=== PATIENT | female | born 1980 | race Caucasian/White ===

== ENCOUNTER 2020-03-21 20:04 | Inpatient (IN) | payer BC ==
[~2020-03-21] VITALS: Ht 180.3 cm; Wt 97.6 kg
[2020-03-21] MEDS ORDERED: IV NORMAL SALINE 1000ML BAG 1,000 ML IV SCH (20:40)
[2020-03-21] MEDS ORDERED: methylPREDNISolone SOD SUCC PF 125 MG/2 ML VIAL. IV ONE (20:45)
[2020-03-21] MEDS ORDERED: fentaNYL PF VIAL 100 MCG/2 ML VIAL IVP ONE (20:45)
[2020-03-21] MEDS ORDERED: ONDANSETRON PF 4 MG/2 ML VIAL. IVP ONE (20:45)
[2020-03-21 21:16] LABS: BASO # 0.1 x10^3/uL (0.0-0.2); BASO % 1 % (0-3); EOS % 1 % (0-3); HEMOGLOBIN 11.8 g/dL (12.0-15.5); LYMPH # 1.9 x10^3/uL (1.0-4.8); LYMPH % 29 % (24-48); MEAN CORPUSCULAR HEMOGLOBIN 26 pg (25-35); MEAN CORPUSCULAR HGB CONC 33 g/dL (31-37); MEAN CORPUSCULAR VOLUME 80 fL (79-100); MONO # 0.6 x10^3/uL (0.0-1.1); MONO % 8 % (0-9); NEUT # 4.1 x10^3/uL (1.8-7.7); NEUT % 62 % (31-73); PLATELET COUNT 344 x10^3/uL (140-400); RED BLOOD COUNT 4.49 x10^6/uL (3.50-5.40); RED CELL DISTRIBUTION WIDTH 14.9 % (11.5-14.5); WHITE BLOOD COUNT 6.6 x10^3/uL (4.0-11.0)
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
[2020-03-21 21:24] LABS: CALCIUM 8.8 mg/dL (8.5-10.1); CREATININE 0.9 mg/dL (0.6-1.0); GFR 69.3; POTASSIUM 3.9 mmol/L (3.5-5.1)
[2020-03-21 21:26] LABS: AMPHETAMINE/METHAMPHETAMINE NEG (NEG); BARBITURATES NEG (NEG); BENZODIAZEPINES NEG (NEG); CANNABINOIDS NEG (NEG); COCAINE NEG (NEG); METHADONE NEG (NEG); OPIATES POS (NEG); PHENCYCLIDINE NEG (NEG)
[2020-03-21 21:29] LABS: ALBUMIN 3.8 g/dL (3.4-5.0); TOTAL BILIRUBIN 0.4 mg/dL (0.2-1.0); TOTAL PROTEIN 7.5 g/dL (6.4-8.2)
[2020-03-21 21:55] LABS: BILIRUBIN,URINE SMALL (NEG); CLARITY,URINE CLEAR; NITRITE,URINE NEGATIVE (NEG); PH,URINE 6.5 (<5.0-8.0); PROTEIN,URINE NEGATIVE (NEG-TRACE)
[2020-03-21 22:02] LABS: COLOR,URINE YELLOW; SQUAMOUS EPITHELIAL CELL,UR MOD /LPF
[2020-03-21 22:03] LABS: BACTERIA,URINE FEW /HPF (0-FEW); RBC,URINE 0 /HPF (0-2)
--- NOTE | 2020-03-22 00:29 | RAD ---
Study: MR cervical spine without contrast INDICATION: Neck injury. Bilateral radiculopathy. COMPARISON: None. TECHNIQUE: Multiplanar MR imaging of the cervical spine performed without the use of intravenous contrast. FINDINGS: Cord signal elevation beginning at the lower aspect of the C4 level and extending to the mid aspect of C5 in the setting of cord compression as detailed below. Apparent cord signal elevation on the sagittal STIR sequence at the C6 level but this is less conspicuous on the axial and sagittal T2 sequences and may be artifactual from adjacent surgical hardware. Operative changes at C5-C6. Hardware integrity and assessment for fusion across the operative level would be better assessed by radiography or CT. Straightening of cervical lordosis. Faint retrolisthesis of C4 on C5. No acute fracture or aggressive marrow signal abnormality. Discogenic arthrosis most pronounced at the junctional C4-C5 and C6-C7 levels. Mild prevertebral edema/fluid extending from C2 to C4. Mild T2 signal elevation along the tip of the dens but the small ligamentous structures in this region appear intact. Normal atlantodental interval and normal alignment at the craniocervical interface. No evidence for major ligamentous injury throughout the cervical or upper thoracic spine. Small right thyroid lobe nodule on image 19 series 8 measuring up to 0.8 cm. This does not warrant dedicated follow-up based on size. C1-C2: The region of the foramen magnum is patent. C2-C3: Mild facet degeneration. The central canal and neural foramina are patent. C3-C4: Mild disc osteophyte complex eccentric to the left. Left more so than right uncovertebral joint hypertrophy. Mild left facet degeneration. Ventral cord flattening lateralized to the left. Moderate central canal stenosis. Mild left neural foraminal stenosis. The right neural foramen is patent. C4-C5: Junctional level. Diffuse disc osteophyte complex and ligamentum flavum combine to compress the ventral and dorsal margins of the cord. Severe central canal stenosis measuring just under 5 mm AP. As above, cord signal elevation at this level. Facet degeneration more pronounced on the left. Left more so than right uncovertebral joint hypertrophy. Severe left and moderate right neural foraminal stenosis. C5-C6: Operative level. Osteophytic ridging with central cord deformity. There may be fusion across the facet joints at this level. Minimal central canal stenosis. The neural foramina are patent. C6-C7: Junctional level. Diffuse disc osteophyte complex slightly eccentric to the left. Mild ligamentum flavum hypertrophy. Ventral more so than dorsal cord deformity. Moderate central canal stenosis. Left more so than right uncovertebral joint hypertrophy and mild facet degeneration with moderate left and mild right neural foraminal stenosis. C7-T1: Bilateral facet generation slightly more pronounced on the right. The central canal is patent. Moderate right and mild left neural foraminal stenosis. T1-T2 through T3-T4: Mild facet degeneration without significant neural foraminal stenosis. The central canal is patent. IMPRESSION: 1. Mild prevertebral edema/fluid mainly from the lower aspect of C2-C4 could represent the sequela of reported trauma however there is no evidence for major ligamentous injury. No acute fracture. 2. Cord signal elevation from the mid aspect of C4 to the mid aspect of C5 either cord edema or myelomalacia in the setting of severe central canal stenosis at C4-C5. This severe central canal stenosis is on a multifactorial basis to include mild retrolisthesis of C4 on C5, diffuse disc osteophyte complex and ligamentum flavum hypertrophy. The mid sagittal canal dimension is approximately 4.8 mm. 3. Also at C4-C5, left more so than right facet degeneration and uncovertebral joint hypertrophy resulting in severe left and moderate right neural foraminal stenosis. 4. As above, moderate central canal stenosis at C3-C4 and C6-C7. Moderate neural foraminal stenosis on the left at C6-C7 and on the right at C7-T1. Mild neural foraminal stenosis at additional levels detailed in the body the report. 5. Operative changes at C5-C6 without comp occasions features by MRI. Note is made that hardware integrity and any osseous fusion would be better assessed by radiographs or CT. Electronically signed by: SUSAN ROSADO MD (03/22/2020 12:26 AM) [id number]
[2020-03-22] MEDS ORDERED: ONDANSETRON PF 4 MG/2 ML VIAL. IV PRN (00:30)
--- NOTE | 2020-03-22 02:05 | NUR ---
Report was given to this RN by VALORIE Poe. Pt. arrived on unit at approximately 0205 by wheelchair from ED. Pt. complains of pain at this time. Assessment and vitals were done. Call light within reach with bed in lowest position. Will continue to monitor.
[2020-03-22] MEDS: fentaNYL PF VIAL 100 MCG/2 ML VIAL IV PRN ×3 (02:12→04:18)
[2020-03-22] MEDS: IV NORMAL SALINE 1000ML BAG 1,000 ML IV SCH ×3 (02:19→22:13)
--- NOTE | 2020-03-22 02:41 | NUR ---
No appetite. Only eats once a day and drinks 2-3 glasses of wine. Addendum: 03/22/20 at 0251 by MANJIT SAUNDERS RN Amended: Links added.
[2020-03-22 03:00] VITALS: BP 139/78
[2020-03-22] MEDS ORDERED: MULT-245 PO (04:26)
[2020-03-22] MEDS: fentaNYL PF VIAL 100 MCG/2 ML VIAL IVP PRN ×3 (06:10→10:51)
[2020-03-22 07:50] VITALS: BP 128/81
--- NOTE | 2020-03-22 10:45 | NUR ---
SW following. Chart reviewed, discussed with RN. Pt is from home with . NPO, room air. Dr. Palma consulted. SW will continue to follow for any discharge planning needs.
[2020-03-22] MEDS ORDERED: methylPREDNISolone SOD SUCC PF 125 MG/2 ML VIAL. IV ONE (11:30)
[2020-03-22 11:32] VITALS: BP 141/82
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
[2020-03-22] MEDS: HYDROmorphone 2 MG/ML VIAL IV PRN ×3 (13:06→22:12)
--- NOTE | 2020-03-22 13:33 | PDOC ---
Provider Note Provider Note patient seen and examined consulted for cervical stenosis, s/p fall off bed Sunday c/o burning pain in forearms and hands bilaterally and neck pain history of cervical fusion 10 years ago exam- 4/5 strength in upper extremities primarily becasue of pain, LE strength was 5/5 burning dysesthetic pain in Upper extremities knee and ankle jerks were 3+, upper extremity reflexes were 1+ on cervical MRI there is an instrumented fusion C5-7, there is post disc bulging at C4-5 with severe stenosis cervical myelopathy with severe stenosis plan for ACDF C4-5 tomorrow steroids discussed risks and post op course with patient and mother per phone, all questions answered KRISTY SCHWARTZ MD Mar 22, 2020 13:33
[2020-03-22] MEDS: DEXAMETHASONE SOD PHOS 4 MG/ML VIAL IVP SCH ×2 (14:00→18:06)
[2020-03-22 15:05] VITALS: BP 138/78
[2020-03-22 19:00] VITALS: BP 122/69
[2020-03-22 23:00] VITALS: BP 117/75
[2020-03-23] VITALS (12 sets, daily range): BP systolic 113–150; BP diastolic 56–82
[2020-03-23] MEDS: DEXAMETHASONE SOD PHOS 4 MG/ML VIAL IVP SCH ×4 (00:11→18:08)
[2020-03-23] MEDS: HYDROmorphone 2 MG/ML VIAL IV PRN ×2 (02:15→06:20)
[2020-03-23] MEDS: ONDANSETRON PF 4 MG/2 ML VIAL. IVP PRN (04:03)
[2020-03-23] MEDS ORDERED: BACITRACIN 50,000 UNIT in IV NORMAL SALINE 1000ML BAG 1,000 ML IRR ONE (06:00)
[2020-03-23] MEDS ORDERED: GELATIN SPONGE SIZE 100. ONE (06:57)
[2020-03-23] MEDS ORDERED: THROMBIN TOPICAL 20,000 UNIT SPRAY.SYRN KIT TP ONE (06:58)
[2020-03-23] MEDS ORDERED: BUPIVACAINE-EPI 0.5%-1:200000 MPF 30 ML VIAL. ONE (06:58)
[2020-03-23] MEDS ORDERED: fentaNYL PF VIAL 100 MCG/2 ML VIAL IV PRN (07:00)
[2020-03-23] MEDS ORDERED: ONDANSETRON PF 4 MG/2 ML VIAL. IV PRN (07:00)
[2020-03-23] MEDS ORDERED: MORPHINE SULFATE 2 MG/ML VIAL. IV PRN (07:00)
[2020-03-23] MEDS ORDERED: IV RINGERS,LACTATED 1000ML 1,000 ML IV SCH (07:00)
[2020-03-23] MEDS ORDERED: PROCHLORPERAZINE 10 MG/2 ML VIAL. IV PRN (07:00)
[2020-03-23] MEDS ORDERED: HYDROmorphone 2 MG/ML VIAL IV PRN (07:00)
[2020-03-23 07:06] LABS: U PREG PATIENT NEGATIVE (NEG)
[2020-03-23] MEDS ORDERED: fentaNYL PF VIAL 100 MCG/2 ML VIAL ONE (07:55)
[2020-03-23] MEDS ORDERED: SUCCINYLCHOLINE 200 MG/10 ML VIAL. ONE (07:55)
[2020-03-23] MEDS ORDERED: PROPOFOL 20 ML IV ONE (07:55)
[2020-03-23] MEDS ORDERED: PHENYLEPHRINE 10 MG/ML VIAL. ONE (07:55)
[2020-03-23] MEDS ORDERED: REMIFENTANIL 2 MG VIAL. IV ONE (07:55)
[2020-03-23] MEDS ORDERED: PROPOFOL 0 ML IV ONE (07:55)
[2020-03-23] MEDS ORDERED: DEXAMETHASONE SOD PHOS 4 MG/ML VIAL ONE (07:55)
[2020-03-23] MEDS ORDERED: ONDANSETRON PF 4 MG/2 ML VIAL. ONE (07:55)
[2020-03-23] MEDS ORDERED: MIDAZOLAM HCL/PF 2 MG/2 ML VIAL. ONE (07:55)
[2020-03-23] MEDS ORDERED: LIDOCAINE 2% PF 5 ML VIAL. ONE (07:55)
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
[2020-03-23] MEDS ORDERED: GLYCOPYRROLATE 1 MG/5 ML VIAL. ONE (09:26)
[2020-03-23] MEDS ORDERED: KETAMINE HCL IN NACL, ISO-OSM 50 MG/5 ML SYRINGE ONE (09:32)
[2020-03-23] MEDS ORDERED: PROPOFOL 50 ML IV ONE ×2 (10:02→11:30)
[2020-03-23] MEDS ORDERED: DESFLURANE > 120 MINUTES IH ONE (11:36)
[2020-03-23] MEDS: fentaNYL PF VIAL 100 MCG/2 ML VIAL IV PRN ×2 (12:22→13:04)
[2020-03-23 13:54] LABS: BILIRUBIN,URINE NEGATIVE (NEG); CLARITY,URINE CLOUDY; COLOR,URINE YELLOW; NITRITE,URINE NEGATIVE (NEG); PROTEIN,URINE NEGATIVE (NEG-TRACE); UROBILINOGEN,URINE 0.2 mg/dL (0.2 mg/dL)
[2020-03-23] MEDS ORDERED: HYDROcodone/APAP 5/325MG 1 TAB TABLET PO PRN (14:00)
[2020-03-23 14:02] LABS: BACTERIA,URINE FEW /HPF (0-FEW); RBC,URINE OCC /HPF (0-2); SQUAMOUS EPITHELIAL CELL,UR FEW /LPF
--- NOTE | 2020-03-23 14:49 | PDOC ---
PROGRESS NOTES Chief Complaint Chief Complaint s/p fall from bed Neuropathy History of cervical fusion Cervical myelophathy with severe stenosis Plan: Patient status post surgical anterior cervical discectomy pain management reassess in the am further recommendations based on clinical course. History of Present Illness History of Present Illness Sedated status post cervical discectomy, she tolerated procedure well currently still under the effects of anesthesia. She is moving all her limbs and responding to verbal cues Vitals Vitals Vital Signs Date Time Temp Pulse Resp B/P (MAP) Pulse Ox O2 Delivery O2 Flow Rate FiO2 03/23/20 13:30 Nasal Cannula 2 03/23/20 13:16 97.8 85 20 153/73 96 97.8 Physical Exam Physical Exam Gen.: well-developed well-nourished in no apparent distress Head: Normal shape atraumatic Eyes: Pupils equal reactive to light and accommodation, normal conjunctivae and lids Ears: Normal shape Nose: Normal shape no trauma Mouth: No exudates of the back of throat no thrush no lesions Neck: Supple no JVD no carotid bruit or lymphadenopathy no thyromegaly Chest: Lungs clear to auscultation with good inspiratory effort no crackles rales or rhonchi Cardiovascular: S1-S2 regular rhythm no murmurs gallops or rubs Abdomen: Bowel sounds present soft nontender no hepatosplenomegaly appreciated sign Extremities: No clubbing no cyanosis no edema peripheral pulses palpated bilaterally Neurological: Alert awake oriented in person time place and situation, cranial nerves II through XII intact,exam- 4/5 strength in upper extremities primarily becasue of pain, LE strength was 5/5 burning dysesthetic pain in Upper extremities knee and ankle jerks were 3+, upper extremity reflexes were 1+ Psych: Unable to assess Labs LABS Laboratory Tests Test 03/23/20 13:00 Urine Collection Type Unknown Urine Color Yellow Urine Clarity Cloudy Urine pH 7.0 (<5.0-8.0) Urine Specific [place] <=1.005 (1.000-1.030) Urine Protein Negative mg/dL (NEG-TRACE) Urine Glucose (UA) Negative mg/dL (NEG) Urine Ketones (Stick) Negative mg/dL (NEG) Urine Blood Negative (NEG) Urine Nitrite Negative (NEG) Urine Bilirubin Negative (NEG) Urine Urobilinogen Dipstick 0.2 mg/dL (0.2 mg/dL) Urine Leukocyte Esterase Moderate (NEG) Urine RBC Occ /HPF (0-2) Urine WBC 5-10 /HPF (0-4) Urine Squamous Epithelial Cells Few /LPF Urine Bacteria Few /HPF (0-FEW) Assessment and Plan Assessmemt and Plan Problems Medical Problems: (1) Cervical radiculopathy Status: Acute Comment Review of Relevant I have reviewed the following items sonal (where applicable) has been applied. Labs Laboratory Tests Test 03/21/20 21:00 03/21/20 21:05 03/23/20 13:00 Urine Collection Type Unknown Unknown Urine Color Yellow Yellow Urine Clarity Clear Cloudy Urine pH 6.5 (<5.0-8.0) 7.0 (<5.0-8.0) Urine Specific [place] >=1.030 (1.000-1.030) <=1.005 (1.000-1.030) Urine Protein Negative mg/dL (NEG-TRACE) Negative mg/dL (NEG-TRACE) Urine Glucose (UA) Negative mg/dL (NEG) Negative mg/dL (NEG) Urine Ketones (Stick) Trace mg/dL (NEG) Negative mg/dL (NEG) Urine Blood Negative (NEG) Negative (NEG) Urine Nitrite Negative (NEG) Negative (NEG) Urine Bilirubin Small (NEG) Negative (NEG) Urine Urobilinogen Dipstick 1.0 mg/dL (0.2 mg/dL) 0.2 mg/dL (0.2 mg/dL) Urine Leukocyte Esterase Negative (NEG) Moderate (NEG) Urine RBC 0 /HPF (0-2) Occ /HPF (0-2) Urine WBC 1-4 /HPF (0-4) 5-10 /HPF (0-4) Urine Squamous Epithelial Cells Mod /LPF Few /LPF Urine Bacteria Few /HPF (0-FEW) Few /HPF (0-FEW) Urine Mucus Mod /LPF Urine Test Negative (NEG) Urine Opiates Screen Pos (NEG) Urine Methadone Screen Neg (NEG) Urine Barbiturates Neg (NEG) Urine Phencyclidine Screen Neg (NEG) Urine Amphetamine/Methamphetamine Neg (NEG) Urine Benzodiazepines Screen Neg (NEG) Urine Cocaine Screen Neg (NEG) Urine Cannabinoids Screen Neg (NEG) Urine Ethyl Alcohol Neg (NEG) White Blood Count 6.6 x10^3/uL (4.0-11.0) Red Blood Count 4.49 x10^6/uL (3.50-5.40) Hemoglobin 11.8 g/dL (12.0-15.5) Hematocrit 36.0 % (36.0-47.0) Mean Corpuscular Volume 80 fL (79-100) Mean Corpuscular Hemoglobin 26 pg (25-35) Mean Corpuscular Hemoglobin Concent 33 g/dL (31-37) Red Cell Distribution Width 14.9 % (11.5-14.5) Platelet Count 344 x10^3/uL (140-400) Neutrophils (%) (Auto) 62 % (31-73) Lymphocytes (%) (Auto) 29 % (24-48) Monocytes (%) (Auto) 8 % (0-9) Eosinophils (%) (Auto) 1 % (0-3) Basophils (%) (Auto) 1 % (0-3) Neutrophils # (Auto) 4.1 x10^3/uL (1.8-7.7) Lymphocytes # (Auto) 1.9 x10^3/uL (1.0-4.8) Monocytes # (Auto) 0.6 x10^3/uL (0.0-1.1) Eosinophils # (Auto) 0.0 x10^3/uL (0.0-0.7) Basophils # (Auto) 0.1 x10^3/uL (0.0-0.2) Sodium Level 141 mmol/L (136-145) Potassium Level 3.9 mmol/L (3.5-5.1) Chloride Level 105 mmol/L (98-107) Carbon Dioxide Level 26 mmol/L (21-32) Anion Gap 10 (6-14) Blood Urea Nitrogen 10 mg/dL (7-20) Creatinine 0.9 mg/dL (0.6-1.0) Estimated GFR (Cockcroft-Gault) 69.3 BUN/Creatinine Ratio 11 (6-20) Glucose Level 93 mg/dL (70-99) Calcium Level 8.8 mg/dL (8.5-10.1) Total Bilirubin 0.4 mg/dL (0.2-1.0) Aspartate Amino Transf (AST/SGOT) 19 U/L (15-37) Alanine Aminotransferase (ALT/SGPT) 22 U/L (14-59) Alkaline Phosphatase 83 U/L (46-116) Total Protein 7.5 g/dL (6.4-8.2) Albumin 3.8 g/dL (3.4-5.0) Albumin/Globulin Ratio 1.0 (1.0-1.7) Laboratory Tests Test 03/23/20 13:00 Urine Collection Type Unknown Urine Color Yellow Urine Clarity Cloudy Urine pH 7.0 (<5.0-8.0) Urine Specific [place] <=1.005 (1.000-1.030) Urine Protein Negative mg/dL (NEG-TRACE) Urine Glucose (UA) Negative mg/dL (NEG) Urine Ketones (Stick) Negative mg/dL (NEG) Urine Blood Negative (NEG) Urine Nitrite Negative (NEG) Urine Bilirubin Negative (NEG) Urine Urobilinogen Dipstick 0.2 mg/dL (0.2 mg/dL) Urine Leukocyte Esterase Moderate (NEG) Urine RBC Occ /HPF (0-2) Urine WBC 5-10 /HPF (0-4) Urine Squamous Epithelial Cells Few /LPF Urine Bacteria Few /HPF (0-FEW) Medications Current Medications Ondansetron HCl (Zofran) 4 mg 1X ONCE IVP Last administered on 03/21/20at 21:18; Start 03/21/20 at 20:45; Stop 03/21/20 at 20:46; Status DC Sodium Chloride 1,000 ml @ 1,000 mls/hr Q1H IV Last administered on 03/21/20at 21:19; Start 03/21/20 at 20:40; Stop 03/21/20 at 21:39; Status DC Methylprednisolone Sodium Succinate (SOLU-Medrol 125MG VIAL) 125 mg 1X ONCE IV Last administered on 03/21/20at 21:17; Start 03/21/20 at 20:45; Stop 03/21/20 at 20:46; Status DC Fentanyl Citrate (Fentanyl 2ml Vial) 50 mcg 1X ONCE IVP Last administered on 03/21/20at 21:18; Start 03/21/20 at 20:45; Stop 03/21/20 at 20:46; Status DC Ondansetron HCl (Zofran) 4 mg PRN Q8HRS PRN IV NAUSEA/VOMITING 1ST CHOICE Last administered on 03/22/20at 03:20; Start 03/22/20 at 00:30; Stop 03/23/20 at 00 :29; Status DC Fentanyl Citrate (Fentanyl 2ml Vial) 50 mcg PRN Q1HR PRN IV MODERATE PAIN 4-6 Last administered on 03/22/20at 04:18; Start 03/22/20 at 00:30; Stop 03/22/20 at 14:26; Status DC Sodium Chloride 1,000 ml @ 100 mls/hr Q10H IV Last administered on 03/22/20at 22:13; Start 03/22/20 at 00:30; Stop 03/23/20 at 00:29; Status DC Fentanyl Citrate (Fentanyl 2ml Vial) 100 mcg PRN Q2HR PRN IVP SEVERE PAIN 7-10 Last administered on 03/22/20at 10:51; Start 03/22/20 at 05:30 Methylprednisolone Sodium Succinate (SOLU-Medrol 125MG VIAL) 125 mg 1X ONCE IV Last administered on 03/22/20at 11:26; Start 03/22/20 at 11:30; Stop 03/22/20 at 11:31; Status DC Hydromorphone HCl (Dilaudid) 1.5 mg PRN Q4HRS PRN IV MODERATE PAIN Last administered on 03/23/20at 06:20; Start 03/22/20 at 13:00 Bacitracin 15855 unit/Sodium Chloride 1,000 ml @ 1,000 mls/hr 1X ONCE IRR Last administered on 03/23/20at 09:44; Start 03/23/20 at 06:00; Stop 03/23/20 at 06:59; Status DC Dexamethasone Sodium Phosphate (Decadron) 4 mg Q6HRS IVP Last administered on 03/23/20at 13:44; Start 03/22/20 at 14:00 Cefazolin Sodium/ Dextrose 50 ml @ 100 mls/hr 1X PREOP PRN IV PRIOR TO PROCEDURE; Start 03/22/20 at 14:00; Stop 03/22/20 at 16:00; Status Cancel Cefazolin Sodium/ Dextrose 50 ml @ 100 mls/hr 1X PREOP PRN IV PRIOR TO PROCEDURE Last administered on 03/23/20at 09:00; Start 03/23/20 at 06:00; Stop 03/23/20 at 12:00; Status DC Ondansetron HCl (Zofran) 4 mg PRN Q6HRS PRN IV NAUSEA/VOMITING; Start 03/23/20 at 07:00; Stop 03/23/20 at 19:00 Fentanyl Citrate (Fentanyl 2ml Vial) 25 mcg PRN Q5MIN PRN IV MILD PAIN 1-3; Start 03/23/20 at 07:00; Stop 03/23/20 at 19:00 Fentanyl Citrate (Fentanyl 2ml Vial) 50 mcg PRN Q5MIN PRN IV MODERATE TO SEVERE PAIN Last administered on 03/23/20at 13:04; Start 03/23/20 at 07:00; Stop 03/23/20 at 19:00 Morphine Sulfate (Morphine Sulfate) 1 mg PRN Q10MIN PRN IV SEVERE PAIN 7-10; Start 03/23/20 at 07:00; Stop 03/23/20 at 19:00 Ringer's Solution 1,000 ml @ 30 mls/hr Q24H IV Last administered on 03/23/20at 12:23; Start 03/23/20 at 07:00; Stop 03/23/20 at 18:59 Hydromorphone HCl (Dilaudid) 0.5 mg PRN Q10MIN PRN IV SEV PAIN, Second choice; Start 03/23/20 at 07:00; Stop 03/23/20 at 19:00 Prochlorperazine Edisylate (Compazine) 5 mg PACU PRN PRN IV NAUSEA, MRX1 Last administered on 03/23/20at 12:18; Start 03/23/20 at 07:00; Stop 03/23/20 at 19:00 Ondansetron HCl (Zofran) 4 mg PRN Q4HRS PRN IVP NAUSEA/VOMITING 1ST CHOICE Last administered on 03/23/20at 04:03; Start 03/23/20 at 04:00 Gelatin (Gelfoam Size 100) 1 each STK-MED ONCE .ROUTE Last administered on 03/23/20at 09:44; Start 03/23/20 at 06:57; Stop 03/23/20 at 06:58; Status DC Bupivacaine HCl/ Epinephrine Bitart (Sensorcain-Epi 0.5%-1:110552 Mpf) 30 ml STK-MED ONCE .ROUTE Last administered on 03/23/20at 09:44; Start 03/23/20 at 06:58; Stop 03/23/20 at 06:58; Status DC Thrombin 20,000 unit STK-MED ONCE TP Last administered on 03/23/20at 09:44; Start 03/23/20 at 06:58; Stop 03/23/20 at 06:58; Status DC Ondansetron HCl (Zofran) 4 mg STK-MED ONCE .ROUTE ; Start 03/23/20 at 07:55; Stop 03/23/20 at 07:55; Status DC Propofol 20 ml @ As Directed STK-MED ONCE IV ; Start 03/23/20 at 07:55; Stop 03/23/20 at 07:55; Status DC Lidocaine HCl (Lidocaine Pf 2% Vial) 5 ml STK-MED ONCE .ROUTE ; Start 03/23/20 at 07:55; Stop 03/23/20 at 07:55; Status DC Phenylephrine HCl (Bipin-Synephrine Inj) 10 mg STK-MED ONCE .ROUTE ; Start 03/23/20 at 07:55; Stop 03/23/20 at 07:55; Status DC Dexamethasone Sodium Phosphate (Decadron) 4 mg STK-MED ONCE .ROUTE ; Start 03/23/20 at 07:55; Stop 03/23/20 at 07:55; Status DC Midazolam HCl (Versed) 2 mg STK-MED ONCE .ROUTE ; Start 03/23/20 at 07:55; Stop 03/23/20 at 07:55; Status DC Fentanyl Citrate (Fentanyl 2ml Vial) 100 mcg STK-MED ONCE .ROUTE ; Start 03/23/20 at 07:55; Stop 03/23/20 at 07:55; Status DC Remifentanil HCl (Ultiva) 2 mg STK-MED ONCE IV ; Start 03/23/20 at 07:55; Stop 03/23/20 at 07:56; Status DC Succinylcholine Chloride (Anectine) 200 mg STK-MED ONCE .ROUTE ; Start 03/23/20 at 07:55; Stop 03/23/20 at 07:56; Status DC Propofol 0 ml @ As Directed STK-MED ONCE IV ; Start 03/23/20 at 07:55; Stop 03/23/20 at 07:56; Status DC Glycopyrrolate (Robinul) 1 mg STK-MED ONCE .ROUTE ; Start 03/23/20 at 09:26; Stop 03/23/20 at 09:27; Status DC Ketamine HCl (Ketamine) 50 mg STK-MED ONCE .ROUTE ; Start 03/23/20 at 09:32; Stop 03/23/20 at 09:32; Status DC Propofol 50 ml @ As Directed STK-MED ONCE IV ; Start 03/23/20 at 10:02; Stop 03/23/20 at 10:02; Status DC Propofol 50 ml @ As Directed STK-MED ONCE IV ; Start 03/23/20 at 11:30; Stop 03/23/20 at 11:31; Status DC Desflurane (Suprane) 90 ml STK-MED ONCE IH ; Start 03/23/20 at 11:36; Stop 03/23/20 at 11:36; Status DC Acetaminophen/ Hydrocodone Bitart (Lortab 5/325) 1 tab PRN Q4HRS PRN PO MILD PAIN 1-3; Start 03/23/20 at 14:00 Acetaminophen/ Hydrocodone Bitart (Lortab 5/325) 2 tab PRN Q4HRS PRN PO MODERATE PAIN; Start 03/23/20 at 14:00 Active Scripts Active Reported Multi Vitamin Daily (Multivitamin) 1 Each Tablet 1 Tab PO DAILY 30 Days Vitals/I & O Vital Sign - Last 24 Hours 03/22/20 03/22/20 03/22/20 03/22/20 15:05 18:07 18:37 19:00 Temp 98.1 98.6 98.1 98.6 Pulse 81 82 Resp 18 20 B/P (MAP) 138/78 (98) 122/69 (86) Pulse Ox 96 96 96 O2 Delivery Room Air Room Air Room Air Room Air 03/22/20 03/22/20 03/22/20 03/22/20 20:00 22:12 22:45 23:00 Temp 98.1 98.1 Pulse 73 Resp 16 14 20 B/P (MAP) 117/75 (89) Pulse Ox 96 98 O2 Delivery Room Air Room Air Room Air Room Air 03/23/20 03/23/20 03/23/20 03/23/20 02:15 02:51 03:00 06:20 Temp 98.0 98.0 Pulse 109 Resp 16 16 20 16 B/P (MAP) 113/64 (80) Pulse Ox 97 97 O2 Delivery Room Air Room Air Room Air Room Air 03/23/20 03/23/20 03/23/20 03/23/20 06:50 07:28 08:00 08:15 Temp 98.0 97.8 98.0 97.8 Pulse 84 70 Resp 18 16 B/P (MAP) 150/76 (100) 140/78 Pulse Ox 97 97 100 O2 Delivery Room Air Room Air Room Air Room Air 03/23/20 03/23/20 03/23/20 03/23/20 11:57 11:57 12:13 12:22 Temp 97.8 97.8 Pulse 134 140 Resp 20 20 20 B/P (MAP) 138/67 146/71 Pulse Ox 99 96 100 O2 Delivery Simple Mask Mask Simple Mask Simple Mask O2 Flow Rate 10 10 10 10.0 03/23/20 03/23/20 03/23/20 03/23/20 12:32 13:01 13:04 13:16 Temp 97.8 97.8 Pulse 79 80 85 Resp 20 20 20 20 B/P (MAP) 136/66 136/69 153/73 Pulse Ox 100 90 90 96 O2 Delivery Simple Mask Room Air Nasal Cannula Nasal Cannula O2 Flow Rate 10 2 03/23/20 13:30 O2 Delivery Nasal Cannula O2 Flow Rate 2 Intake and Output 03/22/20 03/22/20 03/23/20 15:00 23:00 07:00 Intake Total 0 ml 2500 ml 1250 ml Output Total 1 ml Balance 0 ml 2499 ml 1250 ml CELESTINA BEASLEY MD Mar 23, 2020 14:49
[2020-03-23] MEDS: HYDROcodone/APAP 5/325MG 1 TAB TABLET PO PRN ×2 (15:36→19:49)
[2020-03-23] MEDS: fentaNYL PF VIAL 100 MCG/2 ML VIAL IVP PRN (22:31)
[2020-03-23] MEDS: MAG HYDROX/ALUMINUM HYD/SIMETH 30 ML ORAL.SUSP PO PRN (22:51)
[2020-03-24] MEDS: DEXAMETHASONE SOD PHOS 4 MG/ML VIAL IVP SCH ×4 (00:07→18:11)
[2020-03-24] MEDS: fentaNYL PF VIAL 100 MCG/2 ML VIAL IVP PRN (02:34)
[2020-03-24 03:00] VITALS: BP 123/64
[2020-03-24] MEDS: HYDROmorphone 2 MG/ML VIAL IV PRN ×5 (05:01→22:08)
[2020-03-24] MEDS: MAG HYDROX/ALUMINUM HYD/SIMETH 30 ML ORAL.SUSP PO PRN ×3 (06:25→18:26)
[2020-03-24 07:15] VITALS: BP 143/80
--- NOTE | 2020-03-24 09:04 | NUR ---
SW following. Discussed with RN, pt had RN call family members to discuss how pt is doing. RN called pt's , who advised he is pt's boyfriend, not . PT has been ordered. SW will continue to follow.
[2020-03-24] MEDS: HYDROcodone/APAP 5/325MG 1 TAB TABLET PO PRN ×3 (10:54→20:00)
[2020-03-24 11:04] VITALS: BP 128/74
--- NOTE | 2020-03-24 12:15 | PDOC ---
PROGRESS NOTES Chief Complaint Chief Complaint s/p fall from bed Neuropathy History of cervical fusion Cervical myelophathy with severe stenosis Plan: Patient status post surgical anterior cervical discectomy pain management reassess in the am further recommendations based on clinical course. History of Present Illness History of Present Illness Patient continues to have pain over her upper extremities she does report improvement in her lower extremity symptoms. Her symptoms are worse with movement, recommendations from surgical consult and greatly appreciated. Discussed pain management with nursing staff no other complaints voiced during my visit Vitals Vitals Vital Signs Date Time Temp Pulse Resp B/P (MAP) Pulse Ox O2 Delivery O2 Flow Rate FiO2 03/24/20 11:54 Room Air 03/24/20 11:04 98.2 52 18 128/74 (92) 98 98.2 03/24/20 09:34 10.0 Physical Exam Physical Exam Gen.: well-developed well-nourished in no apparent distress Head: Normal shape atraumatic Eyes: Pupils equal reactive to light and accommodation, normal conjunctivae and lids Ears: Normal shape Nose: Normal shape no trauma Mouth: No exudates of the back of throat no thrush no lesions Neck: Supple no JVD no carotid bruit or lymphadenopathy no thyromegaly Chest: Lungs clear to auscultation with good inspiratory effort no crackles rales or rhonchi Cardiovascular: S1-S2 regular rhythm no murmurs gallops or rubs Abdomen: Bowel sounds present soft nontender no hepatosplenomegaly appreciated sign Extremities: No clubbing no cyanosis no edema peripheral pulses palpated bilaterally Neurological: Alert awake oriented in person time place and situation, cranial nerves II through XII intact,exam- 4/5 strength in upper extremities primarily because of pain, LE strength was 5/5 burning dysesthetic pain in Upper extremities knee and ankle jerks were 3+, upper extremity reflexes were 1+ Psych: Appropriate mood, cooperative Labs LABS Laboratory Tests Test 03/23/20 13:00 Urine Collection Type Unknown Urine Color Yellow Urine Clarity Cloudy Urine pH 7.0 (<5.0-8.0) Urine Specific [place] <=1.005 (1.000-1.030) Urine Protein Negative mg/dL (NEG-TRACE) Urine Glucose (UA) Negative mg/dL (NEG) Urine Ketones (Stick) Negative mg/dL (NEG) Urine Blood Negative (NEG) Urine Nitrite Negative (NEG) Urine Bilirubin Negative (NEG) Urine Urobilinogen Dipstick 0.2 mg/dL (0.2 mg/dL) Urine Leukocyte Esterase Moderate (NEG) Urine RBC Occ /HPF (0-2) Urine WBC 5-10 /HPF (0-4) Urine Squamous Epithelial Cells Few /LPF Urine Bacteria Few /HPF (0-FEW) Assessment and Plan Assessmemt and Plan Problems Medical Problems: (1) Cervical radiculopathy Status: Acute Comment Review of Relevant I have reviewed the following items sonal (where applicable) has been applied. Labs Laboratory Tests Test 03/23/20 13:00 Urine Collection Type Unknown Urine Color Yellow Urine Clarity Cloudy Urine pH 7.0 (<5.0-8.0) Urine Specific [place] <=1.005 (1.000-1.030) Urine Protein Negative mg/dL (NEG-TRACE) Urine Glucose (UA) Negative mg/dL (NEG) Urine Ketones (Stick) Negative mg/dL (NEG) Urine Blood Negative (NEG) Urine Nitrite Negative (NEG) Urine Bilirubin Negative (NEG) Urine Urobilinogen Dipstick 0.2 mg/dL (0.2 mg/dL) Urine Leukocyte Esterase Moderate (NEG) Urine RBC Occ /HPF (0-2) Urine WBC 5-10 /HPF (0-4) Urine Squamous Epithelial Cells Few /LPF Urine Bacteria Few /HPF (0-FEW) Laboratory Tests Test 03/23/20 13:00 Urine Collection Type Unknown Urine Color Yellow Urine Clarity Cloudy Urine pH 7.0 (<5.0-8.0) Urine Specific [place] <=1.005 (1.000-1.030) Urine Protein Negative mg/dL (NEG-TRACE) Urine Glucose (UA) Negative mg/dL (NEG) Urine Ketones (Stick) Negative mg/dL (NEG) Urine Blood Negative (NEG) Urine Nitrite Negative (NEG) Urine Bilirubin Negative (NEG) Urine Urobilinogen Dipstick 0.2 mg/dL (0.2 mg/dL) Urine Leukocyte Esterase Moderate (NEG) Urine RBC Occ /HPF (0-2) Urine WBC 5-10 /HPF (0-4) Urine Squamous Epithelial Cells Few /LPF Urine Bacteria Few /HPF (0-FEW) Medications Current Medications Ondansetron HCl (Zofran) 4 mg 1X ONCE IVP Last administered on 03/21/20at 21:18; Start 03/21/20 at 20:45; Stop 03/21/20 at 20:46; Status DC Sodium Chloride 1,000 ml @ 1,000 mls/hr Q1H IV Last administered on 03/21/20at 21:19; Start 03/21/20 at 20:40; Stop 03/21/20 at 21:39; Status DC Methylprednisolone Sodium Succinate (SOLU-Medrol 125MG VIAL) 125 mg 1X ONCE IV Last administered on 03/21/20at 21:17; Start 03/21/20 at 20:45; Stop 03/21/20 at 20:46; Status DC Fentanyl Citrate (Fentanyl 2ml Vial) 50 mcg 1X ONCE IVP Last administered on 03/21/20at 21:18; Start 03/21/20 at 20:45; Stop 03/21/20 at 20:46; Status DC Ondansetron HCl (Zofran) 4 mg PRN Q8HRS PRN IV NAUSEA/VOMITING 1ST CHOICE Last administered on 03/22/20at 03:20; Start 03/22/20 at 00:30; Stop 03/23/20 at 00:29; Status DC Fentanyl Citrate (Fentanyl 2ml Vial) 50 mcg PRN Q1HR PRN IV MODERATE PAIN 4-6 Last administered on 03/22/20at 04:18; Start 03/22/20 at 00:30; Stop 03/22/20 at 14:26; Status DC Sodium Chloride 1,000 ml @ 100 mls/hr Q10H IV Last administered on 03/22/20at 22:13; Start 03/22/20 at 00:30; Stop 03/23/20 at 00:29; Status DC Fentanyl Citrate (Fentanyl 2ml Vial) 100 mcg PRN Q2HR PRN IVP SEVERE PAIN 7-10 Last administered on 03/24/20at 02:34; Start 03/22/20 at 05:30 Methylprednisolone Sodium Succinate (SOLU-Medrol 125MG VIAL) 125 mg 1X ONCE IV Last administered on 03/22/20at 11:26; Start 03/22/20 at 11:30; Stop 03/22/20 at 11:31; Status DC Hydromorphone HCl (Dilaudid) 1.5 mg PRN Q4HRS PRN IV MODERATE PAIN Last administered on 03/24/20at 09:34; Start 03/22/20 at 13:00 Bacitracin 81099 unit/Sodium Chloride 1,000 ml @ 1,000 mls/hr 1X ONCE IRR Last administered on 03/23/20at 09:44; Start 03/23/20 at 06:00; Stop 03/23/20 at 06:59; Status DC Dexamethasone Sodium Phosphate (Decadron) 4 mg Q6HRS IVP Last administered on 03/24/20at 06:12; Start 03/22/20 at 14:00 Cefazolin Sodium/ Dextrose 50 ml @ 100 mls/hr 1X PREOP PRN IV PRIOR TO PROCEDURE; Start 03/22/20 at 14:00; Stop 03/22/20 at 16:00; Status Cancel Cefazolin Sodium/ Dextrose 50 ml @ 100 mls/hr 1X PREOP PRN IV PRIOR TO PROCEDURE Last administered on 03/23/20at 09:00; Start 03/23/20 at 06:00; Stop 03/23/20 at 12:00; Status DC Ondansetron HCl (Zofran) 4 mg PRN Q6HRS PRN IV NAUSEA/VOMITING; Start 03/23/20 at 07:00; Stop 03/23/20 at 19:00; Status DC Fentanyl Citrate (Fentanyl 2ml Vial) 25 mcg PRN Q5MIN PRN IV MILD PAIN 1-3; Start 03/23/20 at 07:00; Stop 03/23/20 at 19:00; Status DC Fentanyl Citrate (Fentanyl 2ml Vial) 50 mcg PRN Q5MIN PRN IV MODERATE TO SEVERE PAIN Last administered on 03/23/20at 13:04; Start 03/23/20 at 07:00; Stop 03/23/20 at 19:00; Status DC Morphine Sulfate (Morphine Sulfate) 1 mg PRN Q10MIN PRN IV SEVERE PAIN 7-10; Start 03/23/20 at 07:00; Stop 03/23/20 at 19:00; Status DC Ringer's Solution 1,000 ml @ 30 mls/hr Q24H IV Last administered on 03/23/20at 12:23; Start 03/23/20 at 07:00; Stop 03/23/20 at 18:59; Status DC Hydromorphone HCl (Dilaudid) 0.5 mg PRN Q10MIN PRN IV SEV PAIN, Second choice; Start 03/23/20 at 07:00; Stop 03/23/20 at 19:00; Status DC Prochlorperazine Edisylate (Compazine) 5 mg PACU PRN PRN IV NAUSEA, MRX1 Last administered on 03/23/20at 12:18; Start 03/23/20 at 07:00; Stop 03/23/20 at 19:00; Status DC Ondansetron HCl (Zofran) 4 mg PRN Q4HRS PRN IVP NAUSEA/VOMITING 1ST CHOICE Last administered on 03/23/20at 04:03; Start 03/23/20 at 04:00 Gelatin (Gelfoam Size 100) 1 each STK-MED ONCE .ROUTE Last administered on 03/23/20at 09:44; Start 03/23/20 at 06:57; Stop 03/23/20 at 06:58; Status DC Bupivacaine HCl/ Epinephrine Bitart (Sensorcain-Epi 0.5%-1:090591 Mpf) 30 ml STK-MED ONCE .ROUTE Last administered on 03/23/20at 09:44; Start 03/23/20 at 06:58; Stop 03/23/20 at 06:58; Status DC Thrombin 20,000 unit STK-MED ONCE TP Last administered on 03/23/20at 09:44; Start 03/23/20 at 06:58; Stop 03/23/20 at 06:58; Status DC Ondansetron HCl (Zofran) 4 mg STK-MED ONCE .ROUTE ; Start 03/23/20 at 07:55; Stop 03/23/20 at 07:55; Status DC Propofol 20 ml @ As Directed STK-MED ONCE IV ; Start 03/23/20 at 07:55; Stop 03/23/20 at 07:55; Status DC Lidocaine HCl (Lidocaine Pf 2% Vial) 5 ml STK-MED ONCE .ROUTE ; Start 03/23/20 at 07:55; Stop 03/23/20 at 07:55; Status DC Phenylephrine HCl (Bipin-Synephrine Inj) 10 mg STK-MED ONCE .ROUTE ; Start 03/23/20 at 07:55; Stop 03/23/20 at 07:55; Status DC Dexamethasone Sodium Phosphate (Decadron) 4 mg STK-MED ONCE .ROUTE ; Start 03/23/20 at 07:55; Stop 03/23/20 at 07:55; Status DC Midazolam HCl (Versed) 2 mg STK-MED ONCE .ROUTE ; Start 03/23/20 at 07:55; Stop 03/23/20 at 07:55; Status DC Fentanyl Citrate (Fentanyl 2ml Vial) 100 mcg STK-MED ONCE .ROUTE ; Start 03/23/20 at 07:55; Stop 03/23/20 at 07:55; Status DC Remifentanil HCl (Ultiva) 2 mg STK-MED ONCE IV ; Start 03/23/20 at 07:55; Stop 03/23/20 at 07:56; Status DC Succinylcholine Chloride (Anectine) 200 mg STK-MED ONCE .ROUTE ; Start 03/23/20 at 07:55; Stop 03/23/20 at 07:56; Status DC Propofol 0 ml @ As Directed STK-MED ONCE IV ; Start 03/23/20 at 07:55; Stop 03/23/20 at 07:56; Status DC Glycopyrrolate (Robinul) 1 mg STK-MED ONCE .ROUTE ; Start 03/23/20 at 09:26; Stop 03/23/20 at 09:27; Status DC Ketamine HCl (Ketamine) 50 mg STK-MED ONCE .ROUTE ; Start 03/23/20 at 09:32; Stop 03/23/20 at 09:32; Status DC Propofol 50 ml @ As Directed STK-MED ONCE IV ; Start 03/23/20 at 10:02; Stop 03/23/20 at 10:02; Status DC Propofol 50 ml @ As Directed STK-MED ONCE IV ; Start 03/23/20 at 11:30; Stop 03/23/20 at 11:31; Status DC Desflurane (Suprane) 90 ml STK-MED ONCE IH ; Start 03/23/20 at 11:36; Stop 03/23/20 at 11:36; Status DC Acetaminophen/ Hydrocodone Bitart (Lortab 5/325) 1 tab PRN Q4HRS PRN PO MILD PAIN 1-3; Start 03/23/20 at 14:00 Acetaminophen/ Hydrocodone Bitart (Lortab 5/325) 2 tab PRN Q4HRS PRN PO MODERATE PAIN Last administered on 03/24/20at 10:54; Start 03/23/20 at 14:00 Al Hydroxide/Mg Hydroxide (Mylanta Plus Xs) 30 ml PRN Q2HR PRN PO HEARTBURN / GAS Last administered on 03/24/20at 06:25; Start 03/23/20 at 22:45 Active Scripts Active Reported Multi Vitamin Daily (Multivitamin) 1 Each Tablet 1 Tab PO DAILY 30 Days Vitals/I & O Vital Sign - Last 24 Hours 03/23/20 03/23/20 03/23/20 03/23/20 12:22 12:32 13:01 13:04 Pulse 79 80 Resp 20 20 20 20 B/P (MAP) 136/66 136/69 Pulse Ox 100 100 90 90 O2 Delivery Simple Mask Simple Mask Room Air Nasal Cannula O2 Flow Rate 10.0 10 03/23/20 03/23/20 03/23/20 03/23/20 13:16 13:25 13:30 13:31 Temp 97.8 98.3 97.8 98.3 Pulse 85 73 67 Resp 20 18 B/P (MAP) 153/73 124/73 (90) 117/62 (80) Pulse Ox 96 96 O2 Delivery Nasal Cannula Room Air Nasal Cannula O2 Flow Rate 2 2 03/23/20 03/23/20 03/23/20 03/23/20 13:46 14:04 14:16 14:31 Pulse 94 57 57 68 B/P (MAP) 115/60 (78) 121/57 (78) 132/64 (86) 117/56 (76) 03/23/20 03/23/20 03/23/20 03/23/20 15:36 16:01 16:36 17:01 Pulse 59 58 B/P (MAP) 131/71 (91) 150/75 (100) O2 Delivery Nasal Cannula Room Air 03/23/20 03/23/20 03/23/20 03/23/20 19:00 19:49 20:00 20:49 Temp 99.4 99.4 Pulse 83 Resp 18 20 20 B/P (MAP) 145/82 (103) Pulse Ox 97 96 96 O2 Delivery Room Air Room Air Room Air Nasal Cannula 03/23/20 03/23/20 03/23/20 03/24/20 22:31 23:00 23:01 02:34 Temp 98.7 98.7 Pulse 62 Resp 20 18 20 20 B/P (MAP) 134/77 (96) Pulse Ox 96 97 97 97 O2 Delivery Nasal Cannula Room Air Room Air Room Air O2 Flow Rate 10.0 03/24/20 03/24/20 03/24/20 03/24/20 03:00 03:04 05:01 05:31 Temp Pulse Resp 16 18 18 B/P (MAP) () Pulse Ox 97 97 97 O2 Delivery Room Air Room Air Room Air Room Air 03/24/20 03/24/20 03/24/20 03/24/20 07:15 08:00 09:34 10:04 Temp 98.7 98.7 Pulse 61 Resp 20 B/P (MAP) 143/80 (101) Pulse Ox 97 97 O2 Delivery Room Air Room Air Room Air Room Air O2 Flow Rate 10.0 03/24/20 03/24/20 03/24/20 10:54 11:04 11:54 Temp 98.2 98.2 Pulse 52 Resp 18 B/P (MAP) 128/74 (92) Pulse Ox 98 O2 Delivery Room Air Room Air Room Air Intake and Output 03/23/20 03/23/20 03/24/20 15:00 23:00 07:00 Intake Total 1050 ml 320 ml 120 ml Output Total 10 ml Balance 1040 ml 320 ml 120 ml CELESTINA BEASLEY MD Mar 24, 2020 12:15
--- NOTE | 2020-03-24 12:30 | NUR ---
Assumed pt care at this time. Pt in chair eating lunch and watching tv. Requesting heartburn meds. Call light within reach. Will return with med.
[2020-03-24] MEDS ORDERED: GABAPENTIN 100 MG CAPSULE. PO SCH (14:00)
--- NOTE | 2020-03-24 14:29 | PDOC ---
PROGRESS NOTES Subjective Subjective POD #1 S/P ACDF C4-5 up in chair pain in arms and tingling in hands legs feel stronger, ambulated in [place] Objective Objective Vital Signs Date Time Temp Pulse Resp B/P (MAP) Pulse Ox O2 Delivery O2 Flow Rate FiO2 03/24/20 13:53 Room Air 03/24/20 11:04 98.2 52 18 128/74 (92) 98 98.2 03/24/20 09:34 10.0 Intake and Output 03/24/20 07:00 Intake Total 1490 ml Output Total 10 ml Balance 1480 ml Intake Oral 440 ml IV Total 1050 ml Estimated Blood Loss 10 ml # Voids 2 Physical Exam General: Alert, Cooperative, Other (voice clear, soft collar) HEENT: Other MUSCULOSKELETAL: Other (QUINONES) Skin: Other (dressing dry and intact) Assessment Assessment Problems Medical Problems: (1) Cervical radiculopathy Status: Acute Plan Plan of Care will add gabapentin continue steroids encouraged increased activity as tolerated PT Comment Review of Relevant I have reviewed the following items sonal (where applicable) has been applied. Labs Laboratory Tests Test 03/23/20 13:00 Urine Collection Type Unknown Urine Color Yellow Urine Clarity Cloudy Urine pH 7.0 (<5.0-8.0) Urine Specific [place] <=1.005 (1.000-1.030) Urine Protein Negative mg/dL (NEG-TRACE) Urine Glucose (UA) Negative mg/dL (NEG) Urine Ketones (Stick) Negative mg/dL (NEG) Urine Blood Negative (NEG) Urine Nitrite Negative (NEG) Urine Bilirubin Negative (NEG) Urine Urobilinogen Dipstick 0.2 mg/dL (0.2 mg/dL) Urine Leukocyte Esterase Moderate (NEG) Urine RBC Occ /HPF (0-2) Urine WBC 5-10 /HPF (0-4) Urine Squamous Epithelial Cells Few /LPF Urine Bacteria Few /HPF (0-FEW) Medications Current Medications Ondansetron HCl (Zofran) 4 mg 1X ONCE IVP Last administered on 03/21/20at 21:18; Start 03/21/20 at 20:45; Stop 03/21/20 at 20:46; Status DC Sodium Chloride 1,000 ml @ 1,000 mls/hr Q1H IV Last administered on 03/21/20at 21:19; Start 03/21/20 at 20:40; Stop 03/21/20 at 21:39; Status DC Methylprednisolone Sodium Succinate (SOLU-Medrol 125MG VIAL) 125 mg 1X ONCE IV Last administered on 03/21/20at 21:17; Start 03/21/20 at 20:45; Stop 03/21/20 at 20:46; Status DC Fentanyl Citrate (Fentanyl 2ml Vial) 50 mcg 1X ONCE IVP Last administered on 03/21/20at 21:18; Start 03/21/20 at 20:45; Stop 03/21/20 at 20:46; Status DC Ondansetron HCl (Zofran) 4 mg PRN Q8HRS PRN IV NAUSEA/VOMITING 1ST CHOICE Last administered on 03/22/20at 03:20; Start 03/22/20 at 00:30; Stop 03/23/20 at 00:29; Status DC Fentanyl Citrate (Fentanyl 2ml Vial) 50 mcg PRN Q1HR PRN IV MODERATE PAIN 4-6 Last administered on 03/22/20at 04:18; Start 03/22/20 at 00:30; Stop 03/22/20 at 14:26; Status DC Sodium Chloride 1,000 ml @ 100 mls/hr Q10H IV Last administered on 03/22/20at 22:13; Start 03/22/20 at 00:30; Stop 03/23/20 at 00:29; Status DC Fentanyl Citrate (Fentanyl 2ml Vial) 100 mcg PRN Q2HR PRN IVP SEVERE PAIN 7-10 Last administered on 03/24/20at 02:34; Start 03/22/20 at 05:30 Methylprednisolone Sodium Succinate (SOLU-Medrol 125MG VIAL) 125 mg 1X ONCE IV Last administered on 03/22/20at 11:26; Start 03/22/20 at 11:30; Stop 03/22/20 at 11:31; Status DC Hydromorphone HCl (Dilaudid) 1.5 mg PRN Q4HRS PRN IV MODERATE PAIN Last administered on 03/24/20at 13:53; Start 03/22/20 at 13:00 Bacitracin 06465 unit/Sodium Chloride 1,000 ml @ 1,000 mls/hr 1X ONCE IRR Last administered on 03/23/20at 09:44; Start 03/23/20 at 06:00; Stop 03/23/20 at 06:59; Status DC Dexamethasone Sodium Phosphate (Decadron) 4 mg Q6HRS IVP Last administered on 03/24/20at 12:42; Start 03/22/20 at 14:00 Cefazolin Sodium/ Dextrose 50 ml @ 100 mls/hr 1X PREOP PRN IV PRIOR TO PROCEDURE; Start 03/22/20 at 14:00; Stop 03/22/20 at 16:00; Status Cancel Cefazolin Sodium/ Dextrose 50 ml @ 100 mls/hr 1X PREOP PRN IV PRIOR TO PROCEDURE Last administered on 03/23/20at 09:00; Start 03/23/20 at 06:00; Stop 03/23/20 at 12:00; Status DC Ondansetron HCl (Zofran) 4 mg PRN Q6HRS PRN IV NAUSEA/VOMITING; Start 03/23/20 at 07:00; Stop 03/23/20 at 19:00; Status DC Fentanyl Citrate (Fentanyl 2ml Vial) 25 mcg PRN Q5MIN PRN IV MILD PAIN 1-3; Start 03/23/20 at 07:00; Stop 03/23/20 at 19:00; Status DC Fentanyl Citrate (Fentanyl 2ml Vial) 50 mcg PRN Q5MIN PRN IV MODERATE TO SEVERE PAIN Last administered on 03/23/20at 13:04; Start 03/23/20 at 07:00; Stop 03/23/20 at 19:00; Status DC Morphine Sulfate (Morphine Sulfate) 1 mg PRN Q10MIN PRN IV SEVERE PAIN 7-10; Start 03/23/20 at 07:00; Stop 03/23/20 at 19:00; Status DC Ringer's Solution 1,000 ml @ 30 mls/hr Q24H IV Last administered on 03/23/20at 12:23; Start 03/23/20 at 07:00; Stop 03/23/20 at 18:59; Status DC Hydromorphone HCl (Dilaudid) 0.5 mg PRN Q10MIN PRN IV SEV PAIN, Second choice; Start 03/23/20 at 07:00; Stop 03/23/20 at 19:00; Status DC Prochlorperazine Edisylate (Compazine) 5 mg PACU PRN PRN IV NAUSEA, MRX1 Last administered on 03/23/20at 12:18; Start 03/23/20 at 07:00; Stop 03/23/20 at 19:00; Status DC Ondansetron HCl (Zofran) 4 mg PRN Q4HRS PRN IVP NAUSEA/VOMITING 1ST CHOICE Last administered on 03/23/20at 04:03; Start 03/23/20 at 04:00 Gelatin (Gelfoam Size 100) 1 each STK-MED ONCE .ROUTE Last administered on 03/23/20at 09:44; Start 03/23/20 at 06:57; Stop 03/23/20 at 06:58; Status DC Bupivacaine HCl/ Epinephrine Bitart (Sensorcain-Epi 0.5%-1:811579 Mpf) 30 ml STK-MED ONCE .ROUTE Last administered on 03/23/20 09:44; Start 03/23/20 at 06:58; Stop 03/23/20 at 06:58; Status DC Thrombin 20,000 unit STK-MED ONCE TP Last administered on 03/23/20at 09:44; Start 03/23/20 at 06:58; Stop 03/23/20 at 06:58; Status DC Ondansetron HCl (Zofran) 4 mg STK-MED ONCE .ROUTE ; Start 03/23/20 at 07:55; Stop 03/23/20 at 07:55; Status DC Propofol 20 ml @ As Directed STK-MED ONCE IV ; Start 03/23/20 at 07:55; Stop 03/23/20 at 07:55; Status DC Lidocaine HCl (Lidocaine Pf 2% Vial) 5 ml STK-MED ONCE .ROUTE ; Start 03/23/20 at 07:55; Stop 03/23/20 at 07:55; Status DC Phenylephrine HCl (Bipin-Synephrine Inj) 10 mg STK-MED ONCE .ROUTE ; Start 03/23/20 at 07:55; Stop 03/23/20 at 07:55; Status DC Dexamethasone Sodium Phosphate (Decadron) 4 mg STK-MED ONCE .ROUTE ; Start 03/23/20 at 07:55; Stop 03/23/20 at 07:55; Status DC Midazolam HCl (Versed) 2 mg STK-MED ONCE .ROUTE ; Start 03/23/20 at 07:55; Stop 4/28/20 at 07:55; Status DC Fentanyl Citrate (Fentanyl 2ml Vial) 100 mcg STK-MED ONCE .ROUTE ; Start 03/23/20 at 07:55; Stop 03/23/20 at 07:55; Status DC Remifentanil HCl (Ultiva) 2 mg STK-MED ONCE IV ; Start 03/23/20 at 07:55; Stop 03/23/20 at 07:56; Status DC Succinylcholine Chloride (Anectine) 200 mg STK-MED ONCE .ROUTE ; Start 03/23/20 at 07:55; Stop 03/23/20 at 07:56; Status DC Propofol 0 ml @ As Directed STK-MED ONCE IV ; Start 03/23/20 at 07:55; Stop 03/23/20 at 07:56; Status DC Glycopyrrolate (Robinul) 1 mg STK-MED ONCE .ROUTE ; Start 03/23/20 at 09:26; Stop 03/23/20 at 09:27; Status DC Ketamine HCl (Ketamine) 50 mg STK-MED ONCE .ROUTE ; Start 03/23/20 at 09:32; Stop 03/23/20 at 09:32; Status DC Propofol 50 ml @ As Directed STK-MED ONCE IV ; Start 03/23/20 at 10:02; Stop 03/23/20 at 10:02; Status DC Propofol 50 ml @ As Directed STK-MED ONCE IV ; Start 03/23/20 at 11:30; Stop 03/23/20 at 11:31; Status DC Desflurane (Suprane) 90 ml STK-MED ONCE IH ; Start 03/23/20 at 11:36; Stop 03/23/20 at 11:36; Status DC Acetaminophen/ Hydrocodone Bitart (Lortab 5/325) 1 tab PRN Q4HRS PRN PO MILD PAIN 1-3; Start 03/23/20 at 14:00 Acetaminophen/ Hydrocodone Bitart (Lortab 5/325) 2 tab PRN Q4HRS PRN PO M ODERATE PAIN Last administered on 03/24/20at 10:54; Start 03/23/20 at 14:00 Al Hydroxide/Mg Hydroxide (Mylanta Plus Xs) 30 ml PRN Q2HR PRN PO HEARTBURN / GAS Last administered on 03/24/20at 12:42; Start 03/23/20 at 22:45 Gabapentin (Neurontin) 100 mg DAILY PO ; Start 03/24/20 at 14:00 Active Scripts Active Reported Multi Vitamin Daily (Multivitamin) 1 Each Tablet 1 Tab PO DAILY 30 Days Vitals/I & O Vital Sign - Last 24 Hours 03/23/20 03/23/20 03/23/20 03/23/20 14:31 15:36 16:01 16:36 Pulse 68 59 B/P (MAP) 117/56 (76) 131/71 (91) O2 Delivery Nasal Cannula Room Air 03/23/20 03/23/20 03/23/20 03/23/20 17:01 19:00 19:49 20:00 Temp 99.4 99.4 Pulse 58 83 Resp 18 20 B/P (MAP) 150/75 (100) 145/82 (103) Pulse Ox 97 96 O2 Delivery Room Air Room Air Room Air 03/23/20 03/23/20 03/23/20 03/23/20 20:49 22:31 23:00 23:01 Temp 98.7 98.7 Pulse 62 Resp 20 20 18 20 B/P (MAP) 134/77 (96) Pulse Ox 96 96 97 97 O2 Delivery Nasal Cannula Nasal Cannula Room Air Room Air O2 Flow Rate 10.0 03/24/20 03/24/20 03/24/20 03/24/20 02:34 03:00 03:04 05:01 Temp Pulse Resp 20 16 18 B/P (MAP) () Pulse Ox 97 97 97 O2 Delivery Room Air Room Air Room Air Room Air 03/24/20 03/24/20 03/24/20 03/24/20 05:31 07:15 08:00 09:34 Temp 98.7 98.7 Pulse 61 Resp 18 20 B/P (MAP) 143/80 (101) Pulse Ox 97 97 97 O2 Delivery Room Air Room Air Room Air Room Air O2 Flow Rate 10.0 03/24/20 03/24/20 03/24/20 03/24/20 10:04 10:54 11:04 11:54 Temp 98.2 98.2 Pulse 52 Resp 18 B/P (MAP) 128/74 (92) Pulse Ox 98 O2 Delivery Room Air Room Air Room Air Room Air 03/24/20 13:53 O2 Delivery Room Air Intake and Output 03/23/20 03/23/20 03/24/20 15:00 23:00 07:00 Intake Total 1050 ml 320 ml 120 ml Output Total 10 ml Balance 1040 ml 320 ml 120 ml 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
[2020-03-24 15:07] VITALS: BP 156/77
[2020-03-24] MEDS: GABAPENTIN 100 MG CAPSULE. PO SCH ×2 (15:49→20:00)
--- NOTE | 2020-03-24 17:06 | PATHOLOGY ---
[facility] Accession Number: [id number] . 01 Material submitted: . vertebral column - CERVICAL DISC . 01 Clinical history: . Severe cervical stenosis with myelopathy . 02 Diagnosis: Segments of fibrocartilaginous tissue and minute segments of bone, cervical disc: - Degenerative changes of fibrocartilaginous tissue. (JPM:[facility] 03/24/2020) QTP 03/24/2020 1248 Local . 02 Comment: There is no evidence of an acute inflammatory process or malignancy. (JPM:[facility] 03/24/2020) . 02 Electronically signed: . Devan Singer MD, Pathologist NPI- [id number] . 01 Gross description: . The specimen is received in formalin, labeled "[place], [place], cervical disc" and consists of multiple fragments of white-pink fibrous soft tissue admixed with small fragments of bone measuring 4.0 x 2.0 x 0.6 cm in aggregate. A inside sales representative portion is submitted in A1 following decalcification. (SDY; 03/23/2020) SYU/SYU 03/23/2020 1627 Local . 02 Pathologist provided ICD-10: M99.71, G95.9 . 02 CPT . 335544, 224510 Specimen Comment: A courtesy copy of this report has been sent to [phone], [phone] Specimen Comment: [phone], , Specimen Comment: Report sent to ,DR JIMENES,DR CASTANON / DR ALFARO Performed at: [address], [place], [place] [id number] MD Jeff Colon MD Phone: [phone] Performed at: 02 [facility] [address] [place], [place] [id number] MD Devan Singer MD Phone: [phone]
[2020-03-24 18:35] LABS: BILIRUBIN,URINE NEGATIVE (NEG); CLARITY,URINE CLEAR; COLOR,URINE YELLOW; NITRITE,URINE NEGATIVE (NEG); PROTEIN,URINE NEGATIVE (NEG-TRACE); UROBILINOGEN,URINE 0.2 mg/dL (0.2 mg/dL)
[2020-03-24 18:43] LABS: BACTERIA,URINE 0 /HPF (0-FEW); RBC,URINE 0 /HPF (0-2); SQUAMOUS EPITHELIAL CELL,UR MOD /LPF; WBC,URINE OCC /HPF (0-4)
[2020-03-24 19:00] VITALS: BP 103/67
[2020-03-24 23:00] VITALS: BP 140/64
[2020-03-25] MEDS: HYDROcodone/APAP 5/325MG 1 TAB TABLET PO PRN ×4 (00:16→12:47)
[2020-03-25] MEDS: DEXAMETHASONE SOD PHOS 4 MG/ML VIAL IVP SCH ×5 (00:16→23:09)
[2020-03-25] MEDS: HYDROmorphone 2 MG/ML VIAL IV PRN ×2 (02:17→06:23)
[2020-03-25 03:40] VITALS: BP 130/79
[2020-03-25 07:15] VITALS: BP 141/76
--- NOTE | 2020-03-25 07:44 | NUR ---
During shift change patient stated to night nurse VALORIE Julio that her friend dropped off a [employer] bag with personal belongings in it yesterday around [phone] at patient care services. Fence Installer Helper went to all entrances, there was no [employer] bags at the entrances. Ching nursing trash collector supervisor notified. Stated that we would need to get a statement from the friend that dropped off the belongings before we could make a report. Perla Spencer called around [phone] left message to return call. Phone number for friend [phone]
[2020-03-25] MEDS: GABAPENTIN 100 MG CAPSULE. PO SCH ×2 (08:51→14:10)
--- NOTE | 2020-03-25 10:37 | NUR ---
SW following. Discussed with RN, pt still in a lot of pain. PT recommending home with assistance. SW will continue to follow.
[2020-03-25 11:17] VITALS: BP 147/75
[2020-03-25] MEDS: DOCUSATE SODIUM 100 MG CAPSULE. PO SCH (11:41)
--- NOTE | 2020-03-25 12:34 | NUR ---
Patient had complaints of shooting pain in her bilateral arms. Patient stated that the pain had been like that since her fall. Torie from Dr. Chen office notified. Torie stated that they would be out to see her this shift. Spoke with patients mother in regards to her complaints of her pain and constipation. MD Juan Jose gave orders for Colace daily.
--- NOTE | 2020-03-25 13:27 | NUR ---
Patients father dropped off personal belonings. Lily, community youth secretary hot die picker from main entrance
--- NOTE | 2020-03-25 14:16 | PDOC ---
PROGRESS NOTES Subjective Subjective POD #2 S/P ACDF C4-5 sitting up in chair legs are stronger significant improvement in legs since surgery right upper extremity and hand are better, she is able to open things and feed herself burning in distal forearms and hands except her little fingers are improved Objective Objective Vital Signs Date Time Temp Pulse Resp B/P (MAP) Pulse Ox O2 Delivery O2 Flow Rate FiO2 03/25/20 11:17 97.5 55 18 147/75 (99) 97 Room Air 97.5 03/24/20 09:34 10.0 Intake and Output 03/25/20 07:00 Intake Total 840 ml Balance 840 ml Intake Oral 840 ml # Voids 4 Physical Exam General: Alert, Oriented X3, Cooperative Neuro: Other (Left upper extremity 4/5 strength, right upper extremity 4+/5 strength primarily becasue of pain, LE strength was 5/5, burning dyesthetic pain in both arms although little fingers bilaterally have normal sensation) Skin: Other (soft collar on, dressing intact) Assessment Assessment Problems Medical Problems: (1) Cervical radiculopathy Status: Acute Plan Plan of Care Significantly improved from pre op with normal gait and normal LE right upper extremity significantly improved, left upper extremity improved increase gabapentin steroid taper SCDs when in bed PT/ OT Comment Review of Relevant I have reviewed the following items sonal (where applicable) has been applied. Labs Laboratory Tests Test 03/24/20 17:45 Urine Collection Type Unknown Urine Color Yellow Urine Clarity Clear Urine pH 7.0 (<5.0-8.0) Urine Specific [place] 1.025 (1.000-1.030) Urine Protein Negative mg/dL (NEG-TRACE) Urine Glucose (UA) Negative mg/dL (NEG) Urine Ketones (Stick) Negative mg/dL (NEG) Urine Blood Negative (NEG) Urine Nitrite Negative (NEG) Urine Bilirubin Negative (NEG) Urine Urobilinogen Dipstick 0.2 mg/dL (0.2 mg/dL) Urine Leukocyte Esterase Negative (NEG) Urine RBC 0 /HPF (0-2) Urine WBC Occ /HPF (0-4) Urine Squamous Epithelial Cells Mod /LPF Urine Bacteria 0 /HPF (0-FEW) Urine Mucus Mod /LPF Laboratory Tests Test 03/24/20 17:45 Urine Collection Type Unknown Urine Color Yellow Urine Clarity Clear Urine pH 7.0 (<5.0-8.0) Urine Specific [place] 1.025 (1.000-1.030) Urine Protein Negative mg/dL (NEG-TRACE) Urine Glucose (UA) Negative mg/dL (NEG) Urine Ketones (Stick) Negative mg/dL (NEG) Urine Blood Negative (NEG) Urine Nitrite Negative (NEG) Urine Bilirubin Negative (NEG) Urine Urobilinogen Dipstick 0.2 mg/dL (0.2 mg/dL) Urine Leukocyte Esterase Negative (NEG) Urine RBC 0 /HPF (0-2) Urine WBC Occ /HPF (0-4) Urine Squamous Epithelial Cells Mod /LPF Urine Bacteria 0 /HPF (0-FEW) Urine Mucus Mod /LPF Medications Current Medications Ondansetron HCl (Zofran) 4 mg 1X ONCE IVP Last administered on 03/21/20at 21:18; Start 03/21/20 at 20:45; Stop 03/21/20 at 20:46; Status DC Sodium Chloride 1,000 ml @ 1,000 mls/hr Q1H IV Last administered on 03/21/20at 21:19; Start 03/21/20 at 20:40; Stop 03/21/20 at 21:39; Status DC Methylprednisolone Sodium Succinate (SOLU-Medrol 125MG VIAL) 125 mg 1X ONCE IV Last administered on 03/21/20at 21:17; Start 03/21/20 at 20:45; Stop 03/21/20 at 20:46; Status DC Fentanyl Citrate (Fentanyl 2ml Vial) 50 mcg 1X ONCE IVP Last administered on 03/21/20at 21:18; Start 03/21/20 at 20:45; Stop 03/21/20 at 20:46; Status DC Ondansetron HCl (Zofran) 4 mg PRN Q8HRS PRN IV NAUSEA/VOMITING 1ST CHOICE Last administered on 03/22/20at 03:20; Start 03/22/20 at 00:30; Stop 03/23/20 at 00:29; Status DC Fentanyl Citrate (Fentanyl 2ml Vial) 50 mcg PRN Q1HR PRN IV MODERATE PAIN 4-6 Last administered on 03/22/20at 04:18; Start 03/22/20 at 00:30; Stop 03/22/20 at 14:26; Status DC Sodium Chloride 1,000 ml @ 100 mls/hr Q10H IV Last administered on 03/22/20at 22:13; Start 03/22/20 at 00:30; Stop 03/23/20 at 00:29; Status DC Fentanyl Citrate (Fentanyl 2ml Vial) 100 mcg PRN Q2HR PRN IVP SEVERE PAIN 7-10 Last administered on 03/24/20at 02:34; Start 03/22/20 at 05:30 Methylprednisolone Sodium Succinate (SOLU-Medrol 125MG VIAL) 125 mg 1X ONCE IV Last administered on 03/22/20at 11:26; Start 03/22/20 at 11:30; Stop 03/22/20 at 11:31; Status DC Hydromorphone HCl (Dilaudid) 1.5 mg PRN Q4HRS PRN IV MODERATE PAIN Last administered on 03/25/20at 06:23; Start 03/22/20 at 13:00 Bacitracin 86913 unit/Sodium Chloride 1,000 ml @ 1,000 mls/hr 1X ONCE IRR Last administered on 03/23/20at 09:44; Start 03/23/20 at 06:00; Stop 03/23/20 at 06:59; Status DC Dexamethasone Sodium Phosphate (Decadron) 4 mg Q6HRS IVP Last administered on 03/25/20at 11:42; Start 03/22/20 at 14:00 Cefazolin Sodium/ Dextrose 50 ml @ 100 mls/hr 1X PREOP PRN IV PRIOR TO PROCEDURE; Start 03/22/20 at 14:00; Stop 03/22/20 at 16:00; Status Cancel Cefazolin Sodium/ Dextrose 50 ml @ 100 mls/hr 1X PREOP PRN IV PRIOR TO PROCEDURE Last administered on 03/23/20at 09:00; Start 03/23/20 at 06:00; Stop 03/23/20 at 12:00; Status DC Ondansetron HCl (Zofran) 4 mg PRN Q6HRS PRN IV NAUSEA/VOMITING; Start 03/23/20 at 07:00; Stop 03/23/20 at 19:00; Status DC Fentanyl Citrate (Fentanyl 2ml Vial) 25 mcg PRN Q5MIN PRN IV MILD PAIN 1-3; Start 03/23/20 at 07:00; Stop 03/23/20 at 19:00; Status DC Fentanyl Citrate (Fentanyl 2ml Vial) 50 mcg PRN Q5MIN PRN IV MODERATE TO SEVERE PAIN Last administered on 03/23/20at 13:04; Start 03/23/20 at 07:00; Stop 03/23/20 at 19:00; Status DC Morphine Sulfate (Morphine Sulfate) 1 mg PRN Q10MIN PRN IV SEVERE PAIN 7-10; Start 03/23/20 at 07:00; Stop 03/23/20 at 19:00; Status DC Ringer's Solution 1,000 ml @ 30 mls/hr Q24H IV Last administered on 03/23/20at 12:23; Start 03/23/20 at 07:00; Stop 03/23/20 at 18:59; Status DC Hydromorphone HCl (Dilaudid) 0.5 mg PRN Q10MIN PRN IV SEV PAIN, Second choice; Start 03/23/20 at 07:00; Stop 03/23/20 at 19:00; Status DC Prochlorperazine Edisylate (Compazine) 5 mg PACU PRN PRN IV NAUSEA, MRX1 Last administered on 03/23/20at 12:18; Start 03/23/20 at 07:00; Stop 03/23/20 at 19:00; Status DC Ondansetron HCl (Zofran) 4 mg PRN Q4HRS PRN IVP NAUSEA/VOMITING 1ST CHOICE Last administered on 03/23/20at 04:03; Start 03/23/20 at 04:00 Gelatin (Gelfoam Size 100) 1 each STK-MED ONCE .ROUTE Last administered on 03/23/20at 09:44; Start 03/23/20 at 06:57; Stop 03/23/20 at 06:58; Status DC Bupivacaine HCl/ Epinephrine Bitart (Sensorcain-Epi 0.5%-1:240886 Mpf) 30 ml STK-MED ONCE .ROUTE Last administered on 03/23/20at 09:44; Start 03/23/20 at 06:58; Stop 03/23/20 at 06:58; Status DC Thrombin 20,000 unit STK-MED ONCE TP Last administered on 03/23/20at 09:44; Start 03/23/20 at 06:58; Stop 03/23/20 at 06:58; Status DC Ondansetron HCl (Zofran) 4 mg STK-MED ONCE .ROUTE ; Start 03/23/20 at 07:55; Stop 03/23/20 at 07:55; Status DC Propofol 20 ml @ As Directed STK-MED ONCE IV ; Start 03/23/20 at 07:55; Stop 03/23/20 at 07:55; Status DC Lidocaine HCl (Lidocaine Pf 2% Vial) 5 ml STK-MED ONCE .ROUTE ; Start 03/23/20 at 07:55; Stop 03/23/20 at 07:55; Status DC Phenylephrine HCl (Bipin-Synephrine Inj) 10 mg STK-MED ONCE .ROUTE ; Start 03/23/20 at 07:55; Stop 03/23/20 at 07:55; Status DC Dexamethasone Sodium Phosphate (Decadron) 4 mg STK-MED ONCE .ROUTE ; Start 03/23/20 at 07:55; Stop 03/23/20 at 07:55; Status DC Midazolam HCl (Versed) 2 mg STK-MED ONCE .ROUTE ; Start 03/23/20 at 07:55; Stop 03/23/20 at 07:55; Status DC Fentanyl Citrate (Fentanyl 2ml Vial) 100 mcg STK-MED ONCE .ROUTE ; Start 03/23/20 at 07:55; Stop 03/23/20 at 07:55; Status DC Remifentanil HCl (Ultiva) 2 mg STK-MED ONCE IV ; Start 03/23/20 at 07:55; Stop 03/23/20 at 07:56; Status DC Succinylcholine Chloride (Anectine) 200 mg STK-MED ONCE .ROUTE ; Start 03/23/20 at 07:55; Stop 03/23/20 at 07:56; Status DC Propofol 0 ml @ As Directed STK-MED ONCE IV ; Start 03/23/20 at 07:55; Stop 03/23/20 at 07:56; Status DC Glycopyrrolate (Robinul) 1 mg STK-MED ONCE .ROUTE ; Start 03/23/20 at 09:26; Stop 03/23/20 at 09:27; Status DC Ketamine HCl (Ketamine) 50 mg STK-MED ONCE .ROUTE ; Start 03/23/20 at 09:32; Stop 03/23/20 at 09:32; Status DC Propofol 50 ml @ As Directed STK-MED ONCE IV ; Start 03/23/20 at 10:02; Stop 03/23/20 at 10:02; Status DC Propofol 50 ml @ As Directed STK-MED ONCE IV ; Start 03/23/20 at 11:30; Stop 03/23/20 at 11:31; Status DC Desflurane (Suprane) 90 ml STK-MED ONCE IH ; Start 03/23/20 at 11:36; Stop 03/23/20 at 11:36; Status DC Acetaminophen/ Hydrocodone Bitart (Lortab 5/325) 1 tab PRN Q4HRS PRN PO MILD PAIN 1-3; Start 03/23/20 at 14:00 Acetaminophen/ Hydrocodone Bitart (Lortab 5/325) 2 tab PRN Q4HRS PRN PO MODERATE PAIN Last administered on 03/25/20at 12:47; Start 03/23/20 at 14:00 Al Hydroxide/Mg Hydroxide (Mylanta Plus Xs) 30 ml PRN Q2HR PRN PO HEARTBURN / GAS Last administered on 03/24/20at 18:26; Start 03/23/20 at 22:45 Gabapentin (Neurontin) 100 mg DAILY PO ; Start 03/24/20 at 14:00; Stop 03/24/20 at 14:34; Status DC Gabapentin (Neurontin) 100 mg TID PO Last administered on 03/25/20at 14:10; Start 03/24/20 at 15:00 Docusate Sodium (Colace) 100 mg DAILY PO Last administered on 03/25/20at 11:41; Start 03/25/20 at 12:00 Active Scripts Active Reported Multi Vitamin Daily (Multivitamin) 1 Each Tablet 1 Tab PO DAILY 30 Days Vitals/I & O Vital Sign - Last 24 Hours 03/24/20 03/24/20 03/24/20 03/24/20 14:23 15:07 15:49 16:50 Temp 98.1 98.1 Pulse 69 Resp 20 B/P (MAP) 156/77 (103) Pulse Ox 97 O2 Delivery Room Air Room Air Room Air Room Air 03/24/20 03/24/20 03/24/20 03/24/20 18:12 18:42 19:00 20:00 Temp 97.9 97.9 Pulse 51 Resp 18 B/P (MAP) 103/67 (79) Pulse Ox 96 O2 Delivery Room Air Room Air Room Air Room Air 03/24/20 03/24/20 03/24/20 03/24/20 20:00 21:00 22:08 22:38 O2 Delivery Room Air Room Air Room Air Room Air 03/24/20 03/25/20 03/25/20 03/25/20 23:00 00:16 01:16 02:17 Temp 98.2 98.2 Pulse 58 Resp 18 B/P (MAP) 140/64 (89) Pulse Ox 93 O2 Delivery Room Air Room Air Room Air Room Air 03/25/20 03/25/20 03/25/20 03/25/20 03:00 03:40 04:23 05:26 Temp 98.4 98.4 Pulse 54 Resp 20 B/P (MAP) 130/79 (96) O2 Delivery Room Air Room Air Room Air Room Air 03/25/20 03/25/20 03/25/20 03/25/20 06:23 06:53 07:15 11:17 Temp 97.8 97.5 97.8 97.5 Pulse 65 55 Resp 18 18 B/P (MAP) 141/76 (97) 147/75 (99) Pulse Ox 98 97 O2 Delivery Room Air Room Air Room Air Intake and Output 03/24/20 03/24/20 03/25/20 15:00 23:00 07:00 Intake Total 480 ml 360 ml Balance 480 ml 360 ml KRISTY SCHWARTZ MD Mar 25, 2020 14:16
--- NOTE | 2020-03-25 14:23 | PDOC ---
PROGRESS NOTES Chief Complaint Chief Complaint s/p fall from bed 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 History of Present Illness History of Present Illness Patient continues to have pain over her upper extremities but it is improved compared to yesterday, recommendations from surgical consult and greatly appreciated. Discussed pain management with nursing staff no other complaints voiced during my visit Vitals Vitals Vital Signs Date Time Temp Pulse Resp B/P (MAP) Pulse Ox O2 Delivery O2 Flow Rate FiO2 03/25/20 11:17 97.5 55 18 147/75 (99) 97 Room Air 97.5 03/24/20 09:34 10.0 Physical Exam Physical Exam Gen.: well-developed well-nourished in no apparent distress Head: Normal shape atraumatic Eyes: Pupils equal reactive to light and accommodation, normal conjunctivae and lids Ears: Normal shape Nose: Normal shape no trauma Mouth: No exudates of the back of throat no thrush no lesions Neck: Supple no JVD no carotid bruit or lymphadenopathy no thyromegaly Chest: Lungs clear to auscultation with good inspiratory effort no crackles rales or rhonchi Cardiovascular: S1-S2 regular rhythm no murmurs gallops or rubs Abdomen: Bowel sounds present soft nontender no hepatosplenomegaly appreciated sign Extremities: No clubbing no cyanosis no edema peripheral pulses palpated bilaterally Neurological: Alert awake oriented in person time place and situation, cranial nerves II through XII intact,exam- 4/5 strength in upper extremities primarily because of pain, LE strength was 5/5 burning dysesthetic pain in Upper extremities knee and ankle jerks were 3+, upper extremity reflexes were 1+ Psych: Appropriate mood, cooperative General: Alert, Oriented X3, Cooperative Skin: Other (soft collar on, dressing intact) Labs LABS Laboratory Tests Test 03/24/20 17:45 Urine Collection Type Unknown Urine Color Yellow Urine Clarity Clear Urine pH 7.0 (<5.0-8.0) Urine Specific [place] 1.025 (1.000-1.030) Urine Protein Negative mg/dL (NEG-TRACE) Urine Glucose (UA) Negative mg/dL (NEG) Urine Ketones (Stick) Negative mg/dL (NEG) Urine Blood Negative (NEG) Urine Nitrite Negative (NEG) Urine Bilirubin Negative (NEG) Urine Urobilinogen Dipstick 0.2 mg/dL (0.2 mg/dL) Urine Leukocyte Esterase Negative (NEG) Urine RBC 0 /HPF (0-2) Urine WBC Occ /HPF (0-4) Urine Squamous Epithelial Cells Mod /LPF Urine Bacteria 0 /HPF (0-FEW) Urine Mucus Mod /LPF Assessment and Plan Assessmemt and Plan Problems Medical Problems: (1) Cervical radiculopathy Status: Acute Comment Review of Relevant I have reviewed the following items sonal (where applicable) has been applied. Labs Laboratory Tests Test 03/24/20 17:45 Urine Collection Type Unknown Urine Color Yellow Urine Clarity Clear Urine pH 7.0 (<5.0-8.0) Urine Specific [place] 1.025 (1.000-1.030) Urine Protein Negative mg/dL (NEG-TRACE) Urine Glucose (UA) Negative mg/dL (NEG) Urine Ketones (Stick) Negative mg/dL (NEG) Urine Blood Negative (NEG) Urine Nitrite Negative (NEG) Urine Bilirubin Negative (NEG) Urine Urobilinogen Dipstick 0.2 mg/dL (0.2 mg/dL) Urine Leukocyte Esterase Negative (NEG) Urine RBC 0 /HPF (0-2) Urine WBC Occ /HPF (0-4) Urine Squamous Epithelial Cells Mod /LPF Urine Bacteria 0 /HPF (0-FEW) Urine Mucus Mod /LPF Laboratory Tests Test 03/24/20 17:45 Urine Collection Type Unknown Urine Color Yellow Urine Clarity Clear Urine pH 7.0 (<5.0-8.0) Urine Specific [place] 1.025 (1.000-1.030) Urine Protein Negative mg/dL (NEG-TRACE) Urine Glucose (UA) Negative mg/dL (NEG) Urine Ketones (Stick) Negative mg/dL (NEG) Urine Blood Negative (NEG) Urine Nitrite Negative (NEG) Urine Bilirubin Negative (NEG) Urine Urobilinogen Dipstick 0.2 mg/dL (0.2 mg/dL) Urine Leukocyte Esterase Negative (NEG) Urine RBC 0 /HPF (0-2) Urine WBC Occ /HPF (0-4) Urine Squamous Epithelial Cells Mod /LPF Urine Bacteria 0 /HPF (0-FEW) Urine Mucus Mod /LPF Medications Current Medications Ondansetron HCl (Zofran) 4 mg 1X ONCE IVP Last administered on 03/21/20 21:18; Start 03/21/20 at 20:45; Stop 03/21/20 at 20:46; Status DC Sodium Chloride 1,000 ml @ 1,000 mls/hr Q1H IV Last administered on 03/21/20at 21:19; Start 03/21/20 at 20:40; Stop 03/21/20 at 21:39; Status DC Methylprednisolone Sodium Succinate (SOLU-Medrol 125MG VIAL) 125 mg 1X ONCE IV Last administered on 03/21/20at 21:17; Start 03/21/20 at 20:45; Stop 03/21/20 at 20:46; Status DC Fentanyl Citrate (Fentanyl 2ml Vial) 50 mcg 1X ONCE IVP Last administered on 03/21/20at 21:18; Start 03/21/20 at 20:45; Stop 03/21/20 at 20:46; Status DC Ondansetron HCl (Zofran) 4 mg PRN Q8HRS PRN IV NAUSEA/VOMITING 1ST CHOICE Last administered on 03/22/20at 03:20; Start 03/22/20 at 00:30; Stop 03/23/20 at 00:29; Status DC Fentanyl Citrate (Fentanyl 2ml Vial) 50 mcg PRN Q1HR PRN IV MODERATE PAIN 4-6 Last administered on 03/22/20at 04:18; Start 03/22/20 at 00:30; Stop 03/22/20 at 14:26; Status DC Sodium Chloride 1,000 ml @ 100 mls/hr Q10H IV Last administered on 03/22/20at 22:13; Start 03/22/20 at 00:30; Stop 03/23/20 at 00:29; Status DC Fentanyl Citrate (Fentanyl 2ml Vial) 100 mcg PRN Q2HR PRN IVP SEVERE PAIN 7-10 Last administered on 03/24/20at 02:34; Start 03/22/20 at 05:30 Methylprednisolone Sodium Succinate (SOLU-Medrol 125MG VIAL) 125 mg 1X ONCE IV Last administered on 03/22/20at 11:26; Start 03/22/20 at 11:30; Stop 03/22/20 at 11:31; Status DC Hydromorphone HCl (Dilaudid) 1.5 mg PRN Q4HRS PRN IV MODERATE PAIN Last administered on 03/25/20at 06:23; Start 03/22/20 at 13:00 Bacitracin 13134 unit/Sodium Chloride 1,000 ml @ 1,000 mls/hr 1X ONCE IRR Last administered on 03/23/20at 09:44; Start 03/23/20 at 06:00; Stop 03/23/20 at 06:59; Status DC Dexamethasone Sodium Phosphate (Decadron) 4 mg Q6HRS IVP Last administered on 03/25/20at 11:42; Start 03/22/20 at 14:00 Cefazolin Sodium/ Dextrose 50 ml @ 100 mls/hr 1X PREOP PRN IV PRIOR TO PROCEDURE; Start 03/22/20 at 14:00; Stop 03/22/20 at 16:00; Status Cancel Cefazolin Sodium/ Dextrose 50 ml @ 100 mls/hr 1X PREOP PRN IV PRIOR TO PROCEDURE Last administered on 03/23/20at 09:00; Start 03/23/20 at 06:00; Stop 03/23/20 at 12:00; Status DC Ondansetron HCl (Zofran) 4 mg PRN Q6HRS PRN IV NAUSEA/VOMITING; Start 03/23/20 at 07:00; Stop 03/23/20 at 19:00; Status DC Fentanyl Citrate (Fentanyl 2ml Vial) 25 mcg PRN Q5MIN PRN IV MILD PAIN 1-3; Start 03/23/20 at 07:00; Stop 03/23/20 at 19:00; Status DC Fentanyl Citrate (Fentanyl 2ml Vial) 50 mcg PRN Q5MIN PRN IV MODERATE TO SEVERE PAIN Last administered on 03/23/20at 13:04; Start 03/23/20 at 07:00; Stop 03/23/20 at 19:00; Status DC Morphine Sulfate (Morphine Sulfate) 1 mg PRN Q10MIN PRN IV SEVERE PAIN 7-10; Start 03/23/20 at 07:00; Stop 03/23/20 at 19:00; Status DC Ringer's Solution 1,000 ml @ 30 mls/hr Q24H IV Last administered on 03/23/20at 12:23; Start 03/23/20 at 07:00; Stop 03/23/20 at 18:59; Status DC Hydromorphone HCl (Dilaudid) 0.5 mg PRN Q10MIN PRN IV SEV PAIN, Second choice; Start 03/23/20 at 07:00; Stop 03/23/20 at 19:00; Status DC Prochlorperazine Edisylate (Compazine) 5 mg PACU PRN PRN IV NAUSEA, MRX1 Last administered on 03/23/20at 12:18; Start 03/23/20 at 07:00; Stop 03/23/20 at 19:00; Status DC Ondansetron HCl (Zofran) 4 mg PRN Q4HRS PRN IVP NAUSEA/VOMITING 1ST CHOICE Last administered on 03/23/20at 04:03; Start 03/23/20 at 04:00 Gelatin (Gelfoam Size 100) 1 each STK-MED ONCE .ROUTE Last administered on 03/23/20at 09:44; Start 03/23/20 at 06:57; Stop 03/23/20 at 06:58; Status DC Bupivacaine HCl/ Epinephrine Bitart (Sensorcain-Epi 0.5%-1:340665 Mpf) 30 ml STK-MED ONCE .ROUTE Last administered on 03/23/20at 09:44; Start 03/23/20 at 06:58; Stop 03/23/20 at 06:58; Status DC Thrombin 20,000 unit STK-MED ONCE TP Last administered on 03/23/20at 09:44; S tart 03/23/20 at 06:58; Stop 03/23/20 at 06:58; Status DC Ondansetron HCl (Zofran) 4 mg STK-MED ONCE .ROUTE ; Start 03/23/20 at 07:55; Stop 03/23/20 at 07:55; Status DC Propofol 20 ml @ As Directed STK-MED ONCE IV ; Start 03/23/20 at 07:55; Stop 03/23/20 at 07:55; Status DC Lidocaine HCl (Lidocaine Pf 2% Vial) 5 ml STK-MED ONCE .ROUTE ; Start 03/23/20 at 07:55; Stop 03/23/20 at 07:55; Status DC Phenylephrine HCl (Bipin-Synephrine Inj) 10 mg STK-MED ONCE .ROUTE ; Start 03/23/20 at 07:55; Stop 03/23/20 at 07:55; Status DC Dexamethasone Sodium Phosphate (Decadron) 4 mg STK-MED ONCE .ROUTE ; Start 03/23/20 at 07:55; Stop 03/23/20 at 07:55; Status DC Midazolam HCl (Versed) 2 mg STK-MED ONCE .ROUTE ; Start 03/23/20 at 07:55; Stop 03/23/20 at 07:55; Status DC Fentanyl Citrate (Fentanyl 2ml Vial) 100 mcg STK-MED ONCE .ROUTE ; Start 03/23/20 at 07:55; Stop 03/23/20 at 07:55; Status DC Remifentanil HCl (Ultiva) 2 mg STK-MED ONCE IV ; Start 03/23/20 at 07:55; Stop 03/23/20 at 07:56; Status DC Succinylcholine Chloride (Anectine) 200 mg STK-MED ONCE .ROUTE ; Start 03/23/20 at 07:55; Stop 03/23/20 at 07:56; Status DC Propofol 0 ml @ As Directed STK-MED ONCE IV ; Start 03/23/20 at 07:55; Stop 03/23/20 at 07:56; Status DC Glycopyrrolate (Robinul) 1 mg STK-MED ONCE .ROUTE ; Start 03/23/20 at 09:26; Stop 03/23/20 at 09:27; Status DC Ketamine HCl (Ketamine) 50 mg STK-MED ONCE .ROUTE ; Start 03/23/20 at 09:32; Stop 03/23/20 at 09:32; Status DC Propofol 50 ml @ As Directed STK-MED ONCE IV ; Start 03/23/20 at 10:02; Stop 03/23/20 at 10:02; Status DC Propofol 50 ml @ As Directed STK-MED ONCE IV ; Start 03/23/20 at 11:30; Stop 03/23/20 at 11:31; Status DC Desflurane (Suprane) 90 ml STK-MED ONCE IH ; Start 03/23/20 at 11:36; Stop 03/23/20 at 11:36; Status DC Acetaminophen/ Hydrocodone Bitart (Lortab 5/325) 1 tab PRN Q4HRS PRN PO MILD PAIN 1-3; Start 03/23/20 at 14:00 Acetaminophen/ Hydrocodone Bitart (Lortab 5/325) 2 tab PRN Q4HRS PRN PO MODERATE PAIN Last administered on 03/25/20at 12:47; Start 03/23/20 at 14:00 Al Hydroxide/Mg Hydroxide (Mylanta Plus Xs) 30 ml PRN Q2HR PRN PO HEARTBURN / GAS Last administered on 03/24/20at 18:26; Start 03/23/20 at 22:45 Gabapentin (Neurontin) 100 mg DAILY PO ; Start 03/24/20 at 14:00; Stop 03/24/20 at 14:34; Status DC Gabapentin (Neurontin) 100 mg TID PO Last administered on 03/25/20at 14:10; Start 03/24/20 at 15:00 Docusate Sodium (Colace) 100 mg DAILY PO Last administered on 03/25/20at 11:41; Start 03/25/20 at 12:00 Active Scripts Active Reported Multi Vitamin Daily (Multivitamin) 1 Each Tablet 1 Tab PO DAILY 30 Days Vitals/I & O Vital Sign - Last 24 Hours 03/24/20 03/24/20 03/24/20 03/24/20 14:23 15:07 15:49 16:50 Temp 98.1 98.1 Pulse 69 Resp 20 B/P (MAP) 156/77 (103) Pulse Ox 97 O2 Delivery Room Air Room Air Room Air Room Air 03/24/20 03/24/20 03/24/20 03/24/20 18:12 18:42 19:00 20:00 Temp 97.9 97.9 Pulse 51 Resp 18 B/P (MAP) 103/67 (79) Pulse Ox 96 O2 Delivery Room Air Room Air Room Air Room Air 03/24/20 03/24/20 03/24/20 03/24/20 20:00 21:00 22:08 22:38 O2 Delivery Room Air Room Air Room Air Room Air 03/24/20 03/25/20 03/25/20 03/25/20 23:00 00:16 01:16 02:17 Temp 98.2 98.2 Pulse 58 Resp 18 B/P (MAP) 140/64 (89) Pulse Ox 93 O2 Delivery Room Air Room Air Room Air Room Air 03/25/20 03/25/20 03/25/20 03/25/20 03:00 03:40 04:23 05:26 Temp 98.4 98.4 Pulse 54 Resp 20 B/P (MAP) 130/79 (96) O2 Delivery Room Air Room Air Room Air Room Air 03/25/20 03/25/20 03/25/20 03/25/20 06:23 06:53 07:15 11:17 Temp 97.8 97.5 97.8 97.5 Pulse 65 55 Resp 18 18 B/P (MAP) 141/76 (97) 147/75 (99) Pulse Ox 98 97 O2 Delivery Room Air Room Air Room Air Intake and Output 03/24/20 03/24/20 03/25/20 15:00 23:00 07:00 Intake Total 480 ml 360 ml Balance 480 ml 360 ml CELESTINA BEASLEY MD Mar 25, 2020 14:23
[2020-03-25 15:11] VITALS: BP 151/89
[2020-03-25] MEDS: oxyCODONE/APAP 10/325 1 TAB TABLET PO PRN ×2 (16:39→22:54)
--- NOTE | 2020-03-25 17:40 | OP ---
DATE OF SURGERY: 03/23/2020 PREOPERATIVE DIAGNOSES: Cervical spinal stenosis at C4-C5 with cervical myelopathy. POSTOPERATIVE DIAGNOSIS: Cervical spinal stenosis at C4-C5 with cervical myelopathy. OPERATION PERFORMED: Removal of hardware, C5; anterior cervical microdiskectomy, C4-C5; anterior cervical interbody fusion, C4-5 with interbody fusion cage packed with allograft and autograft bone; anterior cervical plate, C4-C5. The operation was done with multimodality monitoring including SSEP, EMG, motor evoked potentials, NIMS monitoring. We used fluoroscopy and microscopic dissection. BLOW UP OPERATOR: Mary Kate Zhang, who assisted with the exposure, the diskectomy, fusion and closure. OPERATIVE INDICATIONS: The patient is a pleasant 39-year-old woman who suffered a fall from the bed and struck her face and developed immediate loss of motor control in her upper and lower extremities. She said that her legs improved quickly and she was able to ambulate, but was unsteady. With regard to her arms, she had severe pain in her neck, which radiated to both of her arms. She said she was unable to use her forearms or hands because of a burning dysesthetic pain. She was unable to feed herself. She was unable to use her hands or virtually any task. She was seen in the Emergency Room, was admitted and the above-mentioned findings were seen and on MRI scanning, there was a herniated cervical disk at C4-C5 with a somewhat small canal resulting in severe spinal stenosis. I recommended an anterior cervical microdiskectomy and fusion. I spoke with her about the surgery and the risks and she wished me to go ahead. DESCRIPTION OF PROCEDURE: Following general endotracheal anesthesia, which was done in a very neutral position to avoid any movement of the neck. The patient was positioned supine with the head in a neutral position. The anterior cervical region was then prepped and draped in the standard fashion. OLEG hose and AV impulse boots were applied for DVT prophylaxis. A microscope was draped. Fluoroscopy was draped and brought into field. Monitoring was established. Ancef 2 grams was given less than 1 hour prior to initiation of the surgery. Fluoroscopy was brought in. Using fluoroscopic guidance, incision was made from the midline around to the right side in a skin crease, dissected down through skin and subcutaneous tissue. I dissected around the medial aspect of the sternocleidomastoid and carotid artery sheath down the anterior cervical vertebral bodies. There was considerable scarring from her anterior cervical surgery in the past. I moved superiorly and identified C4 and then worked gently inferiorly and identified the disk space along with the hardware inferiorly. I placed self-retaining retractors. I confirmed my position fluoroscopically. I removed the superior screws from the anterior plate of C5, placed a distraction pin there and distraction pin in the mid body of C4, distracted the disk space after incising the anterior annulus. I performed a diskectomy with pituitary rongeurs. The disk was largely disorganized and that was removed in fairly large chunks. I scraped cartilaginous endplate. I distracted further and visualized posteriorly. I drilled the posterior spurring and then trimmed and opened the annulus. There was subligamentous disk which I pulled back, opened the ligament and again removed further disk material. As I worked, the region became well decompressed. I obtained excellent hemostasis and when it was perfect, I irrigated. I placed an anterior interbody fusion cage of 6 mm, packed with allograft and autograft bone. The autograft bone, I obtained from shaving the spurring and saving that bone. Once the cage was in position, I sized an anterior plate. I did drill bone of C5 to visualize the superior aspect of the plate and then with a metal cutting lucio, I cut the superior aspect of the plate to allow flushed positioning of the plate used for at C4-C5. I used 14 mm screws, these were placed without difficulty. The screws were all locked. I irrigated copiously, removed the retractor. Fluoroscopic images looked quite good. The monitoring was satisfactory throughout. I irrigated and I closed the platysma after I had Valsalva the patient and assured myself of perfect hemostasis. The subcutaneous tissue was closed, the skin was closed with 4-0 subcuticular suture, felt the surgery went very well and the patient was awakened uneventfully and noted immediate improvement in both her lower and upper extremities. I was quite pleased with the surgery. KRISTY SCHWARTZ MD DR: DEMETRI/lloyd JOB#: [id number] / [id number]
[2020-03-25] MEDS ORDERED: SORBITOL 70% 30 ML SOLUTION. PO ONE (18:00)
[2020-03-25 19:00] VITALS: BP 133/78
[2020-03-25] MEDS: GABAPENTIN 300 MG CAPSULE. PO SCH (21:29)
[2020-03-25 23:00] VITALS: BP 121/81
[2020-03-25] MEDS: fentaNYL PF VIAL 100 MCG/2 ML VIAL IVP PRN (23:02)
[2020-03-26 03:00] VITALS: BP 161/86
[2020-03-26] MEDS: oxyCODONE/APAP 10/325 1 TAB TABLET PO PRN ×3 (05:24→17:52)
[2020-03-26] MEDS: DEXAMETHASONE SOD PHOS 4 MG/ML VIAL IVP SCH ×3 (05:25→17:53)
[2020-03-26 07:00] VITALS: BP 149/86
[2020-03-26] MEDS: ONDANSETRON PF 4 MG/2 ML VIAL. IVP PRN (08:41)
[2020-03-26] MEDS: GABAPENTIN 300 MG CAPSULE. PO SCH ×3 (08:41→21:52)
[2020-03-26] MEDS: DOCUSATE SODIUM 100 MG CAPSULE. PO SCH (08:41)
--- NOTE | 2020-03-26 09:25 | NUR ---
SW following. Discussed with RN, possible discharge home today with self care. PT recommended home with assistance. Pt has spouse and son to help out. SW will continue to follow should any discharge needs arise. Addendum: 03/26/20 at 1103 by DANILO WHITE SW Pt requesting home health. Magda Mcneal RN met with pt, pt agreeable. Plan to discharge with [facility] when ready. SW will continue to follow. RN notified.
[2020-03-26 11:00] VITALS: BP 123/71
--- NOTE | 2020-03-26 11:13 | SNU/HH DC ---
DISCHARGE WITH HOME HEALTH DISCHARGE INFORMATION: Final Diagnosis: Problems Medical Problems: (1) Cervical radiculopathy Status: Acute Condition on Discharge: Stable CODE STATUS: Code Status: Full HOME HEALTH: Face to Face: I certify this patient is under my care and that I, or a nurse practitioner or physician's assistant credit manager working with me, had a face to face encounter that meets the physician face to face encounter requirements with this patient on []. Medical Complications: Other (Cervical neck injury) Half-Way For: Assess & Educate Safety RN For Eval/Treatment: Yes Physical Therapy For: Evalulation/Treatment Occupational Therapy For: Evaluation/Treatment Home Health Aide For: Self-care DOOR REPAIRMAN For: Community Resources Pt Meets Homebound Status: Poor coordination w/ amb. POST DISCHARGE ORDERS: DIET AFTER DISCHARGE: Regular CERTIFICATION STATEMENT: Certification Statement: Certification Statement: Based on the above finding, I certify that this patient is confined to the home and needs intermittent custodial care, physical therapy and/or speech therapy, or continues to need occupational therapy.~ This patient is under my care, and I have initiated the establishment of the plan of care.~ This patient will be followed by myself or a community physician who will periodically review the plan of care. Home Meds Reported Medications Multivitamin (MULTI VITAMIN DAILY) 1 Each Tablet, 1 TAB PO DAILY for prophylact ic for 30 Days, #30 TAB 0 Refills 03/22/20 VERENA JIMENES III DO March 26, 2020 11:13
--- NOTE | 2020-03-26 11:14 | PDOC ---
[facility] [facility] PROGRESS NOTE Chief Complaint Chief Complaint s/p fall from bed 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 History of cervical fusion Cervical myelophathy with severe stenosis status post ACDF C4-5 POD #2 History of Present Illness History of Present Illness 03-26-2020 Patient seen and examined Discussed with RN Discussed with physical therapy Chart reviewed Plan is discharge home with home health and PT OT Vitals/I&O Vitals/I&O: Vital Signs Date Time Temp Pulse Resp B/P (MAP) Pulse Ox O2 Delivery O2 Flow Rate FiO2 03/26/20 11:00 98.2 93 16 123/71 (88) 98 Room Air 98.2 I & O 03/25/20 03/25/20 03/26/20 15:00 23:00 07:00 Intake Total 240 ml 360 ml Balance 240 ml 360 ml Physical Exam Physical Exam: Gen.: well-developed well-nourished in no apparent distress Head: Normal shape atraumatic Eyes: Pupils equal reactive to light and accommodation, normal conjunctivae and lids Ears: Normal shape Nose: Normal shape no trauma Mouth: No exudates of the back of throat no thrush no lesions Neck: Supple no JVD no carotid bruit or lymphadenopathy no thyromegaly Chest: Lungs clear to auscultation with good inspiratory effort no crackles rales or rhonchi Cardiovascular: S1-S2 regular rhythm no murmurs gallops or rubs Abdomen: Bowel sounds present soft nontender no hepatosplenomegaly appreciated sign Extremities: No clubbing no cyanosis no edema peripheral pulses palpated bilaterally Neurological: Alert awake oriented in person time place and situation, cranial nerves II through XII intact,exam- 4/5 strength in upper extremities primarily because of pain, LE strength was 5/5 burning dysesthetic pain in Upper extremities knee and ankle jerks were 3+, upper extremity reflexes were 1+ Psych: Appropriate mood, cooperative General: Alert, Oriented X3, Cooperative Skin: Other (soft collar on, dressing intact) Assessment and Plan Assessmemt and Plan Problems Medical Problems: (1) Cervical radiculopathy Status: Acute s/p fall from bed 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 History of cervical fusion Cervical myelophathy with severe stenosis status post ACDF C4-5 POD #2 Plan: Discharge home with PT OT and home health Left prescriptions for Percocet 10 mg #45 and Medrol Dosepak Comment Review of Relevant I have reviewed the following items sonal (where applicable) has been applied. Medications: Current Medications Medications (Trade) Dose Ordered Sig/Felix Route PRN Reason Start Time Stop Time Status Last Admin Dose Admin Docusate Sodium (Colace) 100 mg DAILY PO 03/25/20 12:00 03/26/20 08:41 Gabapentin (Neurontin) 300 mg TID PO 03/25/20 21:00 03/26/20 08:41 Oxycodone/ Acetaminophen (Percocet 10/325) 2 tab PRN Q6HRS PRN PO MODERATE - SEVERE PAIN 03/25/20 16:15 03/26/20 05:24 Dexamethasone Sodium Phosphate (Decadron) 2 mg Q6HRS IVP 03/25/20 18:00 03/26/20 05:25 Sorbitol (Sorbitol Solution) 30 ml 1X ONCE PO 03/25/20 18:00 03/25/20 18:01 DC 03/25/20 17:59 VERENA JIMENES III DO March 26, 2020 11:14
--- NOTE | 2020-03-26 12:52 | PDOC ---
SUBJECTIVE Subjective Arm pain and burning OBJECTIVE Objective 39 yo female S/P cervical decompression after injury at home. C/O persistent burning in bilat UE's, but LE's much improved Vital Signs Vital Signs Date Time Temp Pulse Resp B/P (MAP) Pulse Ox O2 Delivery O2 Flow Rate FiO2 03/26/20 12:33 Room Air 03/26/20 11:31 Room Air 03/26/20 11:00 98.2 93 16 123/71 (88) 98 Room Air 98.2 03/26/20 08:00 Room Air 03/26/20 07:00 98.2 61 16 149/86 (107) 98 Room Air 98.2 03/26/20 03:00 97.6 66 18 161/86 (111) 94 Room Air 97.6 03/25/20 23:32 Room Air 03/25/20 23:00 98.9 64 18 121/81 (94) 96 Room Air 98.9 03/25/20 22:54 Room Air 03/25/20 21:45 Room Air 03/25/20 19:00 98.0 73 18 133/78 (96) 94 Room Air 98.0 03/25/20 15:11 98.3 104 16 151/89 (109) 98 Room Air 98.3 I & O Intake and Output 03/26/20 07:00 Intake Total 600 ml Balance 600 ml Intake Oral 600 ml # Voids 3 # Bowel Movements 1 ASSESSMENT/PLAN Assessment/Plan REC: Maintain iv steroids, and oral narcotic analgesics. Consider increase Gabapentin to 400-600tid, alternatively, Lyrica 150mg bid JUAN MANUEL APARICIO MD March 26, 2020 12:52
[2020-03-26 15:00] VITALS: BP 145/89
--- NOTE | 2020-03-26 15:46 | PDOC ---
PROGRESS NOTES Subjective Subjective POD # S/P ACDF C4-5 continues to have burning pain in her arms, left > right able to use arms more noticing head pain from her fall Objective Objective Vital Signs Date Time Temp Pulse Resp B/P (MAP) Pulse Ox O2 Delivery O2 Flow Rate FiO2 03/26/20 15:00 98.6 71 16 145/89 (107) 97 Room Air 98.6 03/24/20 09:34 10.0 Intake and Output 03/26/20 07:00 Intake Total 600 ml Balance 600 ml Intake Oral 600 ml # Voids 3 # Bowel Movements 1 Physical Exam General: Alert, Oriented X3, Cooperative Neuro: Normal speech, Other (Other (Left upper extremity 4/5 strength, right upper extremity 4+/5 strength primarily becasue of pain, LE strength was 5/5, burning dyesthetic pain in both arms although little fingers bilaterally have normal sensation)) Skin: Other (dressing intact) Assessment Assessment Problems Medical Problems: (1) Cervical radiculopathy Status: Acute Plan Plan of Care consult Dr. Hadley for pain management can not discharge encouraged activity as tolerated PT/OT Comment Review of Relevant I have reviewed the following items sonal (where applicable) has been applied. Labs Laboratory Tests Test 03/24/20 17:45 Urine Collection Type Unknown Urine Color Yellow Urine Clarity Clear Urine pH 7.0 (<5.0-8.0) Urine Specific [place] 1.025 (1.000-1.030) Urine Protein Negative mg/dL (NEG-TRACE) Urine Glucose (UA) Negative mg/dL (NEG) Urine Ketones (Stick) Negative mg/dL (NEG) Urine Blood Negative (NEG) Urine Nitrite Negative (NEG) Urine Bilirubin Negative (NEG) Urine Urobilinogen Dipstick 0.2 mg/dL (0.2 mg/dL) Urine Leukocyte Esterase Negative (NEG) Urine RBC 0 /HPF (0-2) Urine WBC Occ /HPF (0-4) Urine Squamous Epithelial Cells Mod /LPF Urine Bacteria 0 /HPF (0-FEW) Urine Mucus Mod /LPF Microbiology 03/23/20 Urine Culture - Final, Complete 03/23/20 Urine Culture Result 1 (ANNIE) - Final, Complete Medications Current Medications Ondansetron HCl (Zofran) 4 mg 1X ONCE IVP Last administered on 03/21/20at 21:18; Start 03/21/20 at 20:45; Stop 03/21/20 at 20:46; Status DC Sodium Chloride 1,000 ml @ 1,000 mls/hr Q1H IV Last administered on 03/21/20at 21:19; Start 03/21/20 at 20:40; Stop 03/21/20 at 21:39; Status DC Methylprednisolone Sodium Succinate (SOLU-Medrol 125MG VIAL) 125 mg 1X ONCE IV Last administered on 03/21/20at 21:17; Start 03/21/20 at 20:45; Stop 03/21/20 at 20:46; Status DC Fentanyl Citrate (Fentanyl 2ml Vial) 50 mcg 1X ONCE IVP Last administered on 03/21/20at 21:18; Start 03/21/20 at 20:45; Stop 03/21/20 at 20:46; Status DC Ondansetron HCl (Zofran) 4 mg PRN Q8HRS PRN IV NAUSEA/VOMITING 1ST CHOICE Last administered on 03/22/20at 03:20; Start 03/22/20 at 00:30; Stop 03/23/20 at 00:29; Status DC Fentanyl Citrate (Fentanyl 2ml Vial) 50 mcg PRN Q1HR PRN IV MODERATE PAIN 4-6 Last administered on 03/22/20at 04:18; Start 03/22/20 at 00:30; Stop 03/22/20 at 14:26; Status DC Sodium Chloride 1,000 ml @ 100 mls/hr Q10H IV Last administered on 03/22/20at 22:13; Start 03/22/20 at 00:30; Stop 03/23/20 at 00:29; Status DC Fentanyl Citrate (Fentanyl 2ml Vial) 100 mcg PRN Q2HR PRN IVP SEVERE PAIN 7-10 Last administered on 03/25/20at 23:02; Start 03/22/20 at 05:30 Methylprednisolone Sodium Succinate (SOLU-Medrol 125MG VIAL) 125 mg 1X ONCE IV Last administered on 03/22/20at 11:26; Start 03/22/20 at 11:30; Stop 03/22/20 at 11:31; Status DC Hydromorphone HCl (Dilaudid) 1.5 mg PRN Q4HRS PRN IV MODERATE PAIN Last administered on 03/25/20at 06:23; Start 03/22/20 at 13:00 Bacitracin 62982 unit/Sodium Chloride 1,000 ml @ 1,000 mls/hr 1X ONCE IRR Last administered on 03/23/20at 09:44; Start 03/23/20 at 06:00; Stop 03/23/20 at 06:59; Status DC Dexamethasone Sodium Phosphate (Decadron) 4 mg Q6HRS IVP Last administered on 03/25/20at 11:42; Start 03/22/20 at 14:00; Stop 03/25/20 at 16:09; Status DC Cefazolin Sodium/ Dextrose 50 ml @ 100 mls/hr 1X PREOP PRN IV PRIOR TO PROCEDURE; Start 03/22/20 at 14:00; Stop 03/22/20 at 16:00; Status Cancel Cefazolin Sodium/ Dextrose 50 ml @ 100 mls/hr 1X PREOP PRN IV PRIOR TO PROCEDURE Last administered on 03/23/20at 09:00; Start 03/23/20 at 06:00; Stop 03/23/20 at 12:00; Status DC Ondansetron HCl (Zofran) 4 mg PRN Q6HRS PRN IV NAUSEA/VOMITING; Start 03/23/20 at 07:00; Stop 03/23/20 at 19:00; Status DC Fentanyl Citrate (Fentanyl 2ml Vial) 25 mcg PRN Q5MIN PRN IV MILD PAIN 1-3; Start 03/23/20 at 07:00; Stop 03/23/20 at 19:00; Status DC Fentanyl Citrate (Fentanyl 2ml Vial) 50 mcg PRN Q5MIN PRN IV MODERATE TO SEVERE PAIN Last administered on 03/23/20at 13:04; Start 03/23/20 at 07:00; Stop 03/23/20 at 19:00; Status DC Morphine Sulfate (Morphine Sulfate) 1 mg PRN Q10MIN PRN IV SEVERE PAIN 7-10; Start 03/23/20 at 07:00; Stop 03/23/20 at 19:00; Status DC Ringer's Solution 1,000 ml @ 30 mls/hr Q24H IV Last administered on 03/23/20at 12:23; Start 03/23/20 at 07:00; Stop 03/23/20 at 18:59; Status DC Hydromorphone HCl (Dilaudid) 0.5 mg PRN Q10MIN PRN IV SEV PAIN, Second choice; Start 03/23/20 at 07:00; Stop 03/23/20 at 19:00; Status DC Prochlorperazine Edisylate (Compazine) 5 mg PACU PRN PRN IV NAUSEA, MRX1 Last administered on 03/23/20at 12:18; Start 03/23/20 at 07:00; Stop 03/23/20 at 19:00; Status DC Ondansetron HCl (Zofran) 4 mg PRN Q4HRS PRN IVP NAUSEA/VOMITING 1ST CHOICE Last administered on 03/26/20at 08:41; Start 03/23/20 at 04:00 Gelatin (Gelfoam Size 100) 1 each STK-MED ONCE .ROUTE Last administered on 03/23/20at 09:44; Start 03/23/20 at 06:57; Stop 03/23/20 at 06:58; Status DC Bupivacaine HCl/ Epinephrine Bitart (Sensorcain-Epi 0.5%-1:[id number] Mpf) 30 ml STK-MED ONCE .ROUTE Last administered on 03/23/20at 09:44; Start 03/23/20 at 06:58; Stop 03/23/20 at 06:58; Status DC Thrombin 20,000 unit STK-MED ONCE TP Last administered on 03/23/20at 09:44; Start 03/23/20 at 06:58; Stop 03/23/20 at 06:58; Status DC Ondansetron HCl (Zofran) 4 mg STK-MED ONCE .ROUTE ; Start 03/23/20 at 07:55; Stop 03/23/20 at 07:55; Status DC Propofol 20 ml @ As Directed STK-MED ONCE IV ; Start 03/23/20 at 07:55; Stop 03/23/20 at 07:55; Status DC Lidocaine HCl (Lidocaine Pf 2% Vial) 5 ml STK-MED ONCE .ROUTE ; Start 03/23/20 at 07:55; Stop 03/23/20 at 07:55; Status DC Phenylephrine HCl (Bipin-Synephrine Inj) 10 mg STK-MED ONCE .ROUTE ; Start 03/23/20 at 07:55; Stop 03/23/20 at 07:55; Status DC Dexamethasone Sodium Phosphate (Decadron) 4 mg STK-MED ONCE .ROUTE ; Start 03/23/20 at 07:55; Stop 03/23/20 at 07:55; Status DC Midazolam HCl (Versed) 2 mg STK-MED ONCE .ROUTE ; Start 03/23/20 at 07:55; Stop 03/23/20 at 07:55; Status DC Fentanyl Citrate (Fentanyl 2ml Vial) 100 mcg STK-MED ONCE .ROUTE ; Start 03/23/20 at 07:55; Stop 03/23/20 at 07:55; Status DC Remifentanil HCl (Ultiva) 2 mg STK-MED ONCE IV ; Start 03/23/20 at 07:55; Stop 03/23/20 at 07:56; Status DC Succinylcholine Chloride (Anectine) 200 mg STK-MED ONCE .ROUTE ; Start 03/23/20 at 07:55; Stop 03/23/20 at 07:56; Status DC Propofol 0 ml @ As Directed STK-MED ONCE IV ; Start 03/23/20 at 07:55; Stop 03/23/20 at 07:56; Status DC Glycopyrrolate (Robinul) 1 mg STK-MED ONCE .ROUTE ; Start 03/23/20 at 09:26; Stop 03/23/20 at 09:27; Status DC Ketamine HCl (Ketamine) 50 mg STK-MED ONCE .ROUTE ; Start 03/23/20 at 09:32; Stop 03/23/20 at 09:32; Status DC Propofol 50 ml @ As Directed STK-MED ONCE IV ; Start 03/23/20 at 10:02; Stop 03/23/20 at 10:02; Status DC Propofol 50 ml @ As Directed STK-MED ONCE IV ; Start 03/23/20 at 11:30; Stop 03/23/20 at 11:31; Status DC Desflurane (Suprane) 90 ml STK-MED ONCE IH ; Start 03/23/20 at 11:36; Stop 03/23/20 at 11:36; Status DC Acetaminophen/ Hydrocodone Bitart (Lortab 5/325) 1 tab PRN Q4HRS PRN PO MILD PAIN 1-3; Start 03/23/20 at 14:00; Stop 03/25/20 at 16:09; Status DC Acetaminophen/ Hydrocodone Bitart (Lortab 5/325) 2 tab PRN Q4HRS PRN PO MODERATE PAIN Last administered on 03/25/20at 12:47; Start 03/23/20 at 14:00; Stop 03/25/20 at 16:09; Status DC Al Hydroxide/Mg Hydroxide (Mylanta Plus Xs) 30 ml PRN Q2HR PRN PO HEARTBURN / GAS Last administered on 03/24/20at 18:26; Start 03/23/20 at 22:45 Gabapentin (Neurontin) 100 mg DAILY PO ; Start 03/24/20 at 14:00; Stop 03/24/20 at 14:34; Status DC Gabapentin (Neurontin) 100 mg TID PO Last administered on 03/25/20at 14:10; Start 03/24/20 at 15:00; Stop 03/25/20 at 16:09; Status DC Docusate Sodium (Colace) 100 mg DAILY PO Last administered on 03/26/20at 08:41; Start 03/25/20 at 12:00 Gabapentin (Neurontin) 300 mg TID PO Last administered on 03/26/20at 13:35; Start 03/25/20 at 21:00 Oxycodone/ Acetaminophen (Percocet 10/325) 1 tab PRN Q6HRS PRN PO MILD PAIN 1- 3; Start 03/25/20 at 16:15 Oxycodone/ Acetaminophen (Percocet 10/325) 2 tab PRN Q6HRS PRN PO MODERATE - SEVERE PAIN Last administered on 03/26/20at 11:31; Start 03/25/20 at 16:15 Dexamethasone Sodium Phosphate (Decadron) 2 mg Q6HRS IVP Last administered on 03/26/20at 11:31; Start 03/25/20 at 18:00 Sorbitol (Sorbitol Solution) 30 ml 1X ONCE PO Last administered on 03/25/20at 17:59; Start 03/25/20 at 18:00; Stop 03/25/20 at 18:01; Status DC Active Scripts Active Reported Multi Vitamin Daily (Multivitamin) 1 Each Tablet 1 Tab PO DAILY 30 Days Vitals/I & O Vital Sign - Last 24 Hours 03/25/20 03/25/20 03/25/20 03/25/20 19:00 21:45 22:54 23:00 Temp 98.0 98.9 98.0 98.9 Pulse 73 64 Resp 18 18 B/P (MAP) 133/78 (96) 121/81 (94) Pulse Ox 94 96 O2 Delivery Room Air Room Air Room Air Room Air 03/25/20 03/26/20 03/26/20 03/26/20 23:32 03:00 07:00 08:00 Temp 97.6 98.2 97.6 98.2 Pulse 66 61 Resp 18 16 B/P (MAP) 161/86 (111) 149/86 (107) Pulse Ox 94 98 O2 Delivery Room Air Room Air Room Air Room Air 03/26/20 03/26/20 03/26/20 03/26/20 11:00 11:31 12:33 15:00 Temp 98.2 98.6 98.2 98.6 Pulse 93 71 Resp 16 16 B/P (MAP) 123/71 (88) 145/89 (107) Pulse Ox 98 97 O2 Delivery Room Air Room Air Room Air Room Air Intake and Output 03/25/20 03/25/20 03/26/20 15:00 23:00 07:00 Intake Total 240 ml 360 ml Balance 240 ml 360 ml KRISTY SCHWARTZ MD March 26, 2020 15:46
[2020-03-26 19:00] VITALS: BP 116/64
[2020-03-26] MEDS: SORBITOL 70% 30 ML SOLUTION. PO PRN (21:52)
[2020-03-26 23:00] VITALS: BP 139/91
[2020-03-27] MEDS: oxyCODONE/APAP 10/325 1 TAB TABLET PO PRN ×3 (00:24→16:40)
[2020-03-27] MEDS: DEXAMETHASONE SOD PHOS 4 MG/ML VIAL IVP SCH ×4 (00:25→17:37)
[2020-03-27 03:04] VITALS: BP 136/67
[2020-03-27 07:25] VITALS: BP 147/65
[2020-03-27] MEDS: GABAPENTIN 300 MG CAPSULE. PO SCH ×3 (08:34→21:02)
[2020-03-27] MEDS: DOCUSATE SODIUM 100 MG CAPSULE. PO SCH (08:34)
[2020-03-27 10:27] VITALS: BP 126/81
--- NOTE | 2020-03-27 11:59 | PDOC ---
[employer] [facility] PROGRESS NOTE Chief Complaint Chief Complaint Postop cervical microdiscectomy s/p fall from bed 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 POD #2 Persistent pain Possible alcohol issues History of Present Illness History of Present Illness 03/27/2020 Patient seen and examined She is still in a lot of pain I discussed with her son by phone Chart reviewed Discussed with RN She is tearful intermittently 03-26-2020 Patient seen and examined Discussed with RN Discussed with physical therapy Chart reviewed Plan is discharge home with home health and PT OT Vitals/I&O Vitals/I&O: Vital Signs Date Time Temp Pulse Resp B/P (MAP) Pulse Ox O2 Delivery O2 Flow Rate FiO2 03/27/20 10:27 97.9 71 16 126/81 (96) 97 Room Air 97.9 I & O 03/26/20 03/26/20 03/27/20 15:00 23:00 07:00 Intake Total 620 ml Balance 620 ml Physical Exam Physical Exam: Gen.: well-developed well-nourished in no apparent distress Head: Normal shape atraumatic Eyes: Pupils equal reactive to light and accommodation, normal conjunctivae and lids Ears: Normal shape Nose: Normal shape no trauma Mouth: No exudates of the back of throat no thrush no lesions Neck: Supple no JVD no carotid bruit or lymphadenopathy no thyromegaly Chest: Lungs clear to auscultation with good inspiratory effort no crackles rales or rhonchi Cardiovascular: S1-S2 regular rhythm no murmurs gallops or rubs Abdomen: Bowel sounds present soft nontender no hepatosplenomegaly appreciated sign Extremities: No clubbing no cyanosis no edema peripheral pulses palpated bilaterally Neurological: Alert awake oriented in person time place and situation, cranial nerves II through XII intact,exam- 4/5 strength in upper extremities primarily because of pain, LE strength was 5/5 burning dysesthetic pain in Upper extremities knee and ankle jerks were 3+, upper extremity reflexes were 1+ Psych: Appropriate mood, cooperative General: Alert, Oriented X3, Cooperative Skin: Other (dressing intact) Assessment and Plan Assessmemt and Plan Problems Medical Problems: (1) Cervical radiculopathy Status: Acut Postop cervical microdiscectomy s/p fall from bed 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 History of cervical fusion Cervical myelophathy with severe stenosis status post ACDF C4-5 POD #2 Probable alcohol issues Plan: Continue pain meds Home meds PT OT DVT prophylaxis Hope to discharge in a day or 2 Comment Review of Relevant I have reviewed the following items sonal (where applicable) has been applied. Medications: Current Medications Medications (Trade) Dose Ordered Sig/Felix Route PRN Reason Start Time Stop Time Status Last Admin Dose Admin Sorbitol (Sorbitol Solution) 30 ml PRN DAILY PRN PO CONSTIPATION 03/26/20 20:00 03/26/20 21:52 VERENA JIMENES III DO March 27, 2020 11:59
[2020-03-27 19:00] VITALS: BP 135/72
--- NOTE | 2020-03-27 19:31 | PDOC ---
PROGRESS NOTES Subjective Subjective late entry- seen at 1300 POD #4 S/P ACDF C4-5 right arm continues to improve pain continue in left arm Objective Objective Vital Signs Date Time Temp Pulse Resp B/P (MAP) Pulse Ox O2 Delivery O2 Flow Rate FiO2 03/27/20 16:40 Room Air 03/27/20 10:27 97.9 71 16 126/81 (96) 97 97.9 03/24/20 09:34 10.0 Intake and Output 03/27/20 06:59 Intake Total 620 ml Balance 620 ml Intake Oral 620 ml # Voids 5 Physical Exam General: Alert, Oriented X3, Cooperative Neuro: Other (no change in neuro exam) Skin: Other (dressing C,D,I) Assessment Assessment Problems Medical Problems: (1) Cervical radiculopathy Status: Acute Plan Plan of Care soft collar for comfort encouraged increased activity as tolerated increase gabapentin PT/ OT Comment Review of Relevant I have reviewed the following items sonal (where applicable) has been applied. Labs Microbiology 03/23/20 Urine Culture - Final, Complete 03/23/20 Urine Culture Result 1 (ANNIE) - Final, Complete Medications Current Medications Ondansetron HCl (Zofran) 4 mg 1X ONCE IVP Last administered on 03/21/20at 21:18; Start 03/21/20 at 20:45; Stop 03/21/20 at 20:46; Status DC Sodium Chloride 1,000 ml @ 1,000 mls/hr Q1H IV Last administered on 03/21/20at 21:19; Start 03/21/20 at 20:40; Stop 03/21/20 at 21:39; Status DC Methylprednisolone Sodium Succinate (SOLU-Medrol 125MG VIAL) 125 mg 1X ONCE IV Last administered on 03/21/20at 21:17; Start 03/21/20 at 20:45; Stop 03/21/20 at 20:46; Status DC Fentanyl Citrate (Fentanyl 2ml Vial) 50 mcg 1X ONCE IVP Last administered on 03/21/20at 21:18; Start 03/21/20 at 20:45; Stop 03/21/20 at 20:46; Status DC Ondansetron HCl (Zofran) 4 mg PRN Q8HRS PRN IV NAUSEA/VOMITING 1ST CHOICE Last administered on 03/22/20at 03:20; Start 03/22/20 at 00:30; Stop 03/23/20 at 00:29; Status DC Fentanyl Citrate (Fentanyl 2ml Vial) 50 mcg PRN Q1HR PRN IV MODERATE PAIN 4-6 Last administered on 03/22/20at 04:18; Start 03/22/20 at 00:30; Stop 03/22/20 at 14:26; Status DC Sodium Chloride 1,000 ml @ 100 mls/hr Q10H IV Last administered on 03/22/20at 22:13; Start 03/22/20 at 00:30; Stop 03/23/20 at 00:29; Status DC Fentanyl Citrate (Fentanyl 2ml Vial) 100 mcg PRN Q2HR PRN IVP SEVERE PAIN 7-10 Last administered on 03/25/20at 23:02; Start 03/22/20 at 05:30 Methylprednisolone Sodium Succinate (SOLU-Medrol 125MG VIAL) 125 mg 1X ONCE IV Last administered on 03/22/20at 11:26; Start 03/22/20 at 11:30; Stop 03/22/20 at 11:31; Status DC Hydromorphone HCl (Dilaudid) 1.5 mg PRN Q4HRS PRN IV MODERATE PAIN Last administered on 03/25/20at 06:23; Start 03/22/20 at 13:00 Bacitracin 14875 unit/Sodium Chloride 1,000 ml @ 1,000 mls/hr 1X ONCE IRR Last administered on 03/23/20at 09:44; Start 03/23/20 at 06:00; Stop 03/23/20 at 06:59; Status DC Dexamethasone Sodium Phosphate (Decadron) 4 mg Q6HRS IVP Last administered on 03/25/20at 11:42; Start 03/22/20 at 14:00; Stop 03/25/20 at 16:09; Status DC Cefazolin Sodium/ Dextrose 50 ml @ 100 mls/hr 1X PREOP PRN IV PRIOR TO PROCEDURE; Start 03/22/20 at 14:00; Stop 03/22/20 at 16:00; Status Cancel Cefazolin Sodium/ Dextrose 50 ml @ 100 mls/hr 1X PREOP PRN IV PRIOR TO PROCEDURE Last administered on 03/23/20at 09:00; Start 03/23/20 at 06:00; Stop at 12:00; Status DC Ondansetron HCl (Zofran) 4 mg PRN Q6HRS PRN IV NAUSEA/VOMITING; Start 03/23/20 at 07:00; Stop 03/23/20 at 19:00; Status DC Fentanyl Citrate (Fentanyl 2ml Vial) 25 mcg PRN Q5MIN PRN IV MILD PAIN 1-3; Start 03/23/20 at 07:00; Stop 03/23/20 at 19:00; Status DC Fentanyl Citrate (Fentanyl 2ml Vial) 50 mcg PRN Q5MIN PRN IV MODERATE TO SEVERE PAIN Last administered on 03/23/20at 13:04; Start 03/23/20 at 07:00; Stop 03/23/20 at 19:00; Status DC Morphine Sulfate (Morphine Sulfate) 1 mg PRN Q10MIN PRN IV SEVERE PAIN 7-10; Start 03/23/20 at 07:00; Stop 03/23/20 at 19:00; Status DC Ringer's Solution 1,000 ml @ 30 mls/hr Q24H IV Last administered on 03/23/20at 12:23; Start 03/23/20 at 07:00; Stop 03/23/20 at 18:59; Status DC Hydromorphone HCl (Dilaudid) 0.5 mg PRN Q10MIN PRN IV SEV PAIN, Second choice; Start 03/23/20 at 07:00; Stop 03/23/20 at 19:00; Status DC Prochlorperazine Edisylate (Compazine) 5 mg PACU PRN PRN IV NAUSEA, MRX1 Last administered on 03/23/20at 12:18; Start 03/23/20 at 07:00; Stop 03/23/20 at 19:00; Status DC Ondansetron HCl (Zofran) 4 mg PRN Q4HRS PRN IVP NAUSEA/VOMITING 1ST CHOICE Last administered on 03/26/20at 08:41; Start 03/23/20 at 04:00 Gelatin (Gelfoam Size 100) 1 each STK-MED ONCE .ROUTE Last administered on 03/23/20at 09:44; Start 03/23/20 at 06:57; Stop 03/23/20 at 06:58; Status DC Bupivacaine HCl/ Epinephrine Bitart (Sensorcain-Epi 0.5%-1:994471 Mpf) 30 ml STK-MED ONCE .ROUTE Last administered on 03/23/20at 09:44; Start 03/23/20 at 06:58; Stop 03/23/20 at 06:58; Status DC Thrombin 20,000 unit STK-MED ONCE TP Last administered on 03/23/20at 09:44; Start 03/23/20 at 06:58; Stop 03/23/20 at 06:58; Status DC Ondansetron HCl (Zofran) 4 mg STK-MED ONCE .ROUTE ; Start 03/23/20 at 07:55; Stop 03/23/20 at 07:55; Status DC Propofol 20 ml @ As Directed STK-MED ONCE IV ; Start 03/23/20 at 07:55; Stop 03/23/20 at 07:55; Status DC Lidocaine HCl (Lidocaine Pf 2% Vial) 5 ml STK-MED ONCE .ROUTE ; Start 03/23/20 at 07:55; Stop 03/23/20 at 07:55; Status DC Phenylephrine HCl (Bipin-Synephrine Inj) 10 mg STK-MED ONCE .ROUTE ; Start 03/23/20 at 07:55; Stop 03/23/20 at 07:55; Status DC Dexamethasone Sodium Phosphate (Decadron) 4 mg STK-MED ONCE .ROUTE ; Start 03/23/20 at 07:55; Stop 03/23/20 at 07:55; Status DC Midazolam HCl (Versed) 2 mg STK-MED ONCE .ROUTE ; Start 03/23/20 at 07:55; Stop 03/23/20 at 07:55; Status DC Fentanyl Citrate (Fentanyl 2ml Vial) 100 mcg STK-MED ONCE .ROUTE ; Start 03/23/20 at 07:55; Stop 03/23/20 at 07:55; Status DC Remifentanil HCl (Ultiva) 2 mg STK-MED ONCE IV ; Start 03/23/20 at 07:55; Stop 03/23/20 at 07:56; Status DC Succinylcholine Chloride (Anectine) 200 mg STK-MED ONCE .ROUTE ; Start 03/23/20 at 07:55; Stop 03/23/20 at 07:56; Status DC Propofol 0 ml @ As Directed STK-MED ONCE IV ; Start 03/23/20 at 07:55; Stop 03/23/20 at 07:56; Status DC Glycopyrrolate (Robinul) 1 mg STK-MED ONCE .ROUTE ; Start 03/23/20 at 09:26; Stop 03/23/20 at 09:27; Status DC Ketamine HCl (Ketamine) 50 mg STK-MED ONCE .ROUTE ; Start 03/23/20 at 09:32; Stop 03/23/20 at 09:32; Status DC Propofol 50 ml @ As Directed STK-MED ONCE IV ; Start 03/23/20 at 10:02; Stop 03/23/20 at 10:02; Status DC Propofol 50 ml @ As Directed STK-MED ONCE IV ; Start 03/23/20 at 11:30; Stop 03/23/20 at 11:31; Status DC Desflurane (Suprane) 90 ml STK-MED ONCE IH ; Start 03/23/20 at 11:36; Stop 03/23/20 at 11:36; Status DC Acetaminophen/ Hydrocodone Bitart (Lortab 5/325) 1 tab PRN Q4HRS PRN PO MILD PAIN 1-3; Start 03/23/20 at 14:00; Stop 03/25/20 at 16:09; Status DC Acetaminophen/ Hydrocodone Bitart (Lortab 5/325) 2 tab PRN Q4HRS PRN PO MODERATE PAIN Last administered on 03/25/20at 12:47; Start 03/23/20 at 14:00; Stop 03/25/20 at 16:09; Status DC Al Hydroxide/Mg Hydroxide (Mylanta Plus Xs) 30 ml PRN Q2HR PRN PO HEARTBURN / GAS Last administered on 03/24/20at 18:26; Start 03/23/20 at 22:45 Gabapentin (Neurontin) 100 mg DAILY PO ; Start 03/24/20 at 14:00; Stop 03/24/20 at 14:34; Status DC Gabapentin (Neurontin) 100 mg TID PO Last administered on 03/25/20at 14:10; Start 03/24/20 at 15:00; Stop 03/25/20 at 16:09; Status DC Docusate Sodium (Colace) 100 mg DAILY PO Last administered on 03/27/20at 08:34; Start 03/25/20 at 12:00 Gabapentin (Neurontin) 300 mg TID PO Last administered on 03/27/20 14:08; Start 03/25/20 at 21:00 Oxycodone/ Acetaminophen (Percocet 10/325) 1 tab PRN Q6HRS PRN PO MILD PAIN 1-3 Last administered on 03/27/20at 16:40; Start 03/25/20 at 16:15 Oxycodone/ Acetaminophen (Percocet 10/325) 2 tab PRN Q6HRS PRN PO MODERATE - SEVERE PAIN Last administered on 03/27/20at 06:57; Start 03/25/20 at 16:15 Dexamethasone Sodium Phosphate (Decadron) 2 mg Q6HRS IVP Last administered on 03/27/20 17:37; Start 03/25/20 at 18:00 Sorbitol (Sorbitol Solution) 30 ml 1X ONCE PO Last administered on 03/25/20at 17:59; Start 03/25/20 at 18:00; Stop 03/25/20 at 18:01; Status DC Sorbitol (Sorbitol Solution) 30 ml PRN DAILY PRN PO CONSTIPATION Last administered on 03/26/20at 21:52; Start 03/26/20 at 20:00 Active Scripts Active Reported Multi Vitamin Daily (Multivitamin) 1 Each Tablet 1 Tab PO DAILY 30 Days Vitals/I & O Vital Sign - Last 24 Hours 03/26/20 03/26/20 03/27/20 03/27/20 20:00 23:00 00:24 01:24 Temp 97.7 97.7 Pulse 78 Resp 20 20 B/P (MAP) 139/91 (107) Pulse Ox 97 97 99 O2 Delivery Room Air Room Air Room Air Room Air 03/27/20 03/27/20 03/27/20 03/27/20 03:04 06:57 07:25 07:35 Temp 97.9 98.1 97.9 98.1 Pulse 61 68 Resp 17 B/P (MAP) 136/67 (90) 147/65 (92) Pulse Ox 99 99 98 O2 Delivery Room Air Room Air Room Air Room Air 03/27/20 03/27/20 03/27/20 08:36 10:27 16:40 Temp 97.9 97.9 Pulse 71 Resp 16 B/P (MAP) 126/81 (96) Pulse Ox 97 O2 Delivery Room Air Room Air Room Air Intake and Output 5/1/20 5/1/20 5/2/20 14:59 22:59 06:59 Intake Total 620 ml Balance 620 ml KRISTY SCHWARTZ MD March 27, 2020 19:31
[2020-03-27 23:00] VITALS: BP 145/88
[2020-03-28] MEDS: oxyCODONE/APAP 10/325 1 TAB TABLET PO PRN ×4 (00:54→19:14)
[2020-03-28] MEDS: DEXAMETHASONE SOD PHOS 4 MG/ML VIAL IVP SCH ×3 (00:54→12:30)
[2020-03-28 07:53] VITALS: BP 124/86
[2020-03-28] MEDS: DOCUSATE SODIUM 100 MG CAPSULE. PO SCH (09:14)
[2020-03-28] MEDS: GABAPENTIN 300 MG CAPSULE. PO SCH ×3 (09:14→21:41)
[2020-03-28 10:35] VITALS: BP 126/76
--- NOTE | 2020-03-28 12:29 | PDOC ---
[facility] PROGRESS NOTE Chief Complaint Chief Complaint Postop day 5 cervical microdiscectomy s/p fall from bed 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 POD #2 Persistent pain Possible alcohol issues History of Present Illness History of Present Illness 03/28/2020 Patient seen and examined She is resting with no apparent distress Chart reviewed 03/27/2020 Patient seen and examined She is still in a lot of pain I discussed with her son by phone Chart reviewed Discussed with RN She is tearful intermittently 03-26-2020 Patient seen and examined Discussed with RN Discussed with physical therapy Chart reviewed Plan is discharge home with home health and PT OT Vitals/I&O Vitals/I&O: Vital Signs Date Time Temp Pulse Resp B/P (MAP) Pulse Ox O2 Delivery O2 Flow Rate FiO2 03/28/20 10:35 98.2 76 18 126/76 (93) 98 Room Air 98.2 I & O 03/27/20 03/27/20 03/28/20 15:00 23:00 07:00 Intake Total 690 ml 440 ml Balance 690 ml 440 ml Physical Exam Physical Exam: Gen.: well-developed well-nourished in no apparent distress Head: Normal shape atraumatic Eyes: Pupils equal reactive to light and accommodation, normal conjunctivae and lids Ears: Normal shape Nose: Normal shape no trauma Mouth: No exudates of the back of throat no thrush no lesions Neck: Supple no JVD no carotid bruit or lymphadenopathy no thyromegaly Chest: Lungs clear to auscultation with good inspiratory effort no crackles rales or rhonchi Cardiovascular: S1-S2 regular rhythm no murmurs gallops or rubs Abdomen: Bowel sounds present soft nontender no hepatosplenomegaly appreciated sign Extremities: No clubbing no cyanosis no edema peripheral pulses palpated bilaterally Neurological: Alert awake oriented in person time place and situation, cranial nerves II through XII intact,exam- 4/5 strength in upper extremities primarily because of pain, LE strength was 5/5 burning dysesthetic pain in Upper extremities knee and ankle jerks were 3+, upper extremity reflexes were 1+ Psych: Appropriate mood, cooperative General: No acute distress Heart: Regular rate, Normal S1 Lungs: Clear Abdomen: Normal bowel sounds Extremities: No clubbing, No cyanosis Skin: No rashes, No breakdown, Other (dressing C,D,I) Assessment and Plan Assessmemt and Plan Problems Medical Problems: (1) Cervical radiculopathy Status: Acute Postop day 5 cervical microdiscectomy s/p fall from bed 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 Full code DVT prophylaxis Comment Review of Relevant I have reviewed the following items sonal (where applicable) has been applied. VERENA JIMENES III DO March 28, 2020 12:28
--- NOTE | 2020-03-28 15:22 | NUR ---
Dr. Watson notified of pt c/o cloudy, burning urine. Telephone orders received.
[2020-03-28] MEDS ORDERED: PHENAZOPYRIDINE 200 MG TABLET. PO PRN (15:30)
[2020-03-28] MEDS: CIPROFLOXACIN HCL 250 MG TABLET. PO SCH ×2 (15:58→21:41)
[2020-03-28 15:59] VITALS: BP 147/91
--- NOTE | 2020-03-28 16:29 | PDOC ---
PROGRESS NOTES Subjective Subjective POD #5 ACDF C4-5 much better today still some left arm pain but better Objective Objective Vital Signs Date Time Temp Pulse Resp B/P (MAP) Pulse Ox O2 Delivery O2 Flow Rate FiO2 03/28/20 12:34 Room Air 03/28/20 10:35 98.2 76 18 126/76 (93) 98 98.2 03/24/20 09:34 10.0 Intake and Output 03/28/20 07:00 Intake Total 1130 ml Balance 1130 ml Intake Oral 1130 ml # Voids 6 Physical Exam General: Other (voice clear) Neuro: Other (left upper extremity stronger) Skin: Other (dressing dry and intact) Assessment Assessment Problems Medical Problems: (1) Cervical radiculopathy Status: Acute Plan Plan of Care change steroids to PO Continue gabapentin PT/ OT Likely home tomorrow Comment Review of Relevant I have reviewed the following items sonal (where applicable) has been applied. Labs Microbiology 03/23/20 Urine Culture - Final, Complete 03/23/20 Urine Culture Result 1 (ANNIE) - Final, Complete Medications Current Medications Ondansetron HCl (Zofran) 4 mg 1X ONCE IVP Last administered on 03/21/20at 2 1:18; Start 03/21/20 at 20:45; Stop 03/21/20 at 20:46; Status DC Sodium Chloride 1,000 ml @ 1,000 mls/hr Q1H IV Last administered on 03/21/20at 21:19; Start 03/21/20 at 20:40; Stop 03/21/20 at 21:39; Status DC Methylprednisolone Sodium Succinate (SOLU-Medrol 125MG VIAL) 125 mg 1X ONCE IV Last administered on 03/21/20at 21:17; Start 03/21/20 at 20:45; Stop 03/21/20 at 20:46; Status DC Fentanyl Citrate (Fentanyl 2ml Vial) 50 mcg 1X ONCE IVP Last administered on 03/21/20at 21:18; Start 03/21/20 at 20:45; Stop 03/21/20 at 20:46; Status DC Ondansetron HCl (Zofran) 4 mg PRN Q8HRS PRN IV NAUSEA/VOMITING 1ST CHOICE Last administered on 03/22/20at 03:20; Start 03/22/20 at 00:30; Stop 03/23/20 at 00:29; Status DC Fentanyl Citrate (Fentanyl 2ml Vial) 50 mcg PRN Q1HR PRN IV MODERATE PAIN 4-6 Last administered on 03/22/20at 04:18; Start 03/22/20 at 00:30; Stop 03/22/20 at 14:26; Status DC Sodium Chloride 1,000 ml @ 100 mls/hr Q10H IV Last administered on 03/22/20at 22:13; Start 03/22/20 at 00:30; Stop 03/23/20 at 00:29; Status DC Fentanyl Citrate (Fentanyl 2ml Vial) 100 mcg PRN Q2HR PRN IVP SEVERE PAIN 7-10 Last administered on 03/25/20at 23:02; Start 03/22/20 at 05:30 Methylprednisolone Sodium Succinate (SOLU-Medrol 125MG VIAL) 125 mg 1X ONCE IV Last administered on 03/22/20at 11:26; Start 03/22/20 at 11:30; Stop 03/22/20 at 11:31; Status DC Hydromorphone HCl (Dilaudid) 1.5 mg PRN Q4HRS PRN IV MODERATE PAIN Last administered on 03/25/20at 06:23; Start 03/22/20 at 13:00 Bacitracin 07532 unit/Sodium Chloride 1,000 ml @ 1,000 mls/hr 1X ONCE IRR Last administered on 03/23/20at 09:44; Start 03/23/20 at 06:00; Stop 03/23/20 at 06:59; Status DC Dexamethasone Sodium Phosphate (Decadron) 4 mg Q6HRS IVP Last administered on 03/25/20at 11:42; Start 03/22/20 at 14:00; Stop 03/25/20 at 16:09; Status DC Cefazolin Sodium/ Dextrose 50 ml @ 100 mls/hr 1X PREOP PRN IV PRIOR TO PROCEDURE; Start 03/22/20 at 14:00; Stop 03/22/20 at 16:00; Status Cancel Cefazolin Sodium/ Dextrose 50 ml @ 100 mls/hr 1X PREOP PRN IV PRIOR TO P ROCEDURE Last administered on 03/23/20at 09:00; Start 03/23/20 at 06:00; Stop 03/23/20 at 12:00; Status DC Ondansetron HCl (Zofran) 4 mg PRN Q6HRS PRN IV NAUSEA/VOMITING; Start 03/23/20 at 07:00; Stop 03/23/20 at 19:00; Status DC Fentanyl Citrate (Fentanyl 2ml Vial) 25 mcg PRN Q5MIN PRN IV MILD PAIN 1-3; Start 03/23/20 at 07:00; Stop 03/23/20 at 19:00; Status DC Fentanyl Citrate (Fentanyl 2ml Vial) 50 mcg PRN Q5MIN PRN IV MODERATE TO SEVERE PAIN Last administered on 03/23/20at 13:04; Start 03/23/20 at 07:00; Stop 03/23/20 at 19:00; Status DC Morphine Sulfate (Morphine Sulfate) 1 mg PRN Q10MIN PRN IV SEVERE PAIN 7-10; Start 03/23/20 at 07:00; Stop 03/23/20 at 19:00; Status DC Ringer's Solution 1,000 ml @ 30 mls/hr Q24H IV Last administered on 03/23/20at 12:23; Start 03/23/20 at 07:00; Stop 03/23/20 at 18:59; Status DC Hydromorphone HCl (Dilaudid) 0.5 mg PRN Q10MIN PRN IV SEV PAIN, Second choice; Start 03/23/20 at 07:00; Stop 03/23/20 at 19:00; Status DC Prochlorperazine Edisylate (Compazine) 5 mg PACU PRN PRN IV NAUSEA, MRX1 Last administered on 03/23/20at 12:18; Start 03/23/20 at 07:00; Stop 03/23/20 at 19:00; Status DC Ondansetron HCl (Zofran) 4 mg PRN Q4HRS PRN IVP NAUSEA/VOMITING 1ST CHOICE Last administered on 03/26/20at 08:41; Start 03/23/20 at 04:00 Gelatin (Gelfoam Size 100) 1 each STK-MED ONCE .ROUTE Last administered on 03/23/20at 09:44; Start 03/23/20 at 06:57; Stop 03/23/20 at 06:58; Status DC Bupivacaine HCl/ Epinephrine Bitart (Sensorcain-Epi 0.5%-1:582349 Mpf) 30 ml STK-MED ONCE .ROUTE Last administered on 03/23/20at 09:44; Start 03/23/20 at 06:58; Stop 03/23/20 at 06:58; Status DC Thrombin 20,000 unit STK-MED ONCE TP Last administered on 03/23/20at 09:44; Start 03/23/20 at 06:58; Stop 03/23/20 at 06:58; Status DC Ondansetron HCl (Zofran) 4 mg STK-MED ONCE .ROUTE ; Start 03/23/20 at 07:55; Stop 03/23/20 at 07:55; Status DC Propofol 20 ml @ As Directed STK-MED ONCE IV ; Start 03/23/20 at 07:55; Stop 03/23/20 at 07:55; Status DC Lidocaine HCl (Lidocaine Pf 2% Vial) 5 ml STK-MED ONCE .ROUTE ; Start 03/23/20 at 07:55; Stop 03/23/20 at 07:55; Status DC Phenylephrine HCl (Bipin-Synephrine Inj) 10 mg STK-MED ONCE .ROUTE ; Start 03/23/20 at 07:55; Stop 03/23/20 at 07:55; Status DC Dexamethasone Sodium Phosphate (Decadron) 4 mg STK-MED ONCE .ROUTE ; Start 03/23/20 at 07:55; Stop 03/23/20 at 07:55; Status DC Midazolam HCl (Versed) 2 mg STK-MED ONCE .ROUTE ; Start 03/23/20 at 07:55; Stop 03/23/20 at 07:55; Status DC Fentanyl Citrate (Fentanyl 2ml Vial) 100 mcg STK-MED ONCE .ROUTE ; Start 03/23 at 07:55; Stop 03/23/20 at 07:55; Status DC Remifentanil HCl (Ultiva) 2 mg STK-MED ONCE IV ; Start 03/23/20 at 07:55; Stop 03/23/20 at 07:56; Status DC Succinylcholine Chloride (Anectine) 200 mg STK-MED ONCE .ROUTE ; Start 03/23/20 at 07:55; Stop 03/23/20 at 07:56; Status DC Propofol 0 ml @ As Directed STK-MED ONCE IV ; Start 03/23/20 at 07:55; Stop 03/23/20 at 07:56; Status DC Glycopyrrolate (Robinul) 1 mg STK-MED ONCE .ROUTE ; Start 03/23/20 at 09:26; Stop 03/23/20 at 09:27; Status DC Ketamine HCl (Ketamine) 50 mg STK-MED ONCE .ROUTE ; Start 03/23/20 at 09:32; Stop 03/23/20 at 09:32; Status DC Propofol 50 ml @ As Directed STK-MED ONCE IV ; Start 03/23/20 at 10:02; Stop 03/23/20 at 10:02; Status DC Propofol 50 ml @ As Directed STK-MED ONCE IV ; Start 03/23/20 at 11:30; Stop 03/23/20 at 11:31; Status DC Desflurane (Suprane) 90 ml STK-MED ONCE IH ; Start 03/23/20 at 11:36; Stop 03/23/20 at 11:36; Status DC Acetaminophen/ Hydrocodone Bitart (Lortab 5/325) 1 tab PRN Q4HRS PRN PO MILD PAIN 1-3; Start 03/23/20 at 14:00; Stop 03/25/20 at 16:09; Status DC Acetaminophen/ Hydrocodone Bitart (Lortab 5/325) 2 tab PRN Q4HRS PRN PO MODERATE PAIN Last administered on 03/25/20at 12:47; Start 03/23/20 at 14:00; Stop 03/25/20 at 16:09; Status DC Al Hydroxide/Mg Hydroxide (Mylanta Plus Xs) 30 ml PRN Q2HR PRN PO HEARTBURN / GAS Last administered on 03/24/20at 18:26; Start 03/23/20 at 22:45 Gabapentin (Neurontin) 100 mg DAILY PO ; Start 03/24/20 at 14:00; Stop 03/24/20 at 14:34; Status DC Gabapentin (Neurontin) 100 mg TID PO Last administered on 03/25/20at 14:10; Start 03/24/20 at 15:00; Stop 03/25/20 at 16:09; Status DC Docusate Sodium (Colace) 100 mg DAILY PO Last administered on 03/28/20at 09:14; Start 03/25/20 at 12:00 Gabapentin (Neurontin) 300 mg TID PO Last administered on 5/3/20at 14:18; Start 03/25/20 at 21:00 Oxycodone/ Acetaminophen (Percocet 10/325) 1 tab PRN Q6HRS PRN PO MILD PAIN 1-3 Last administered on 03/28/20 12:34; Start 03/25/20 at 16:15 Oxycodone/ Acetaminophen (Percocet 10/325) 2 tab PRN Q6HRS PRN PO MODERATE - SEVERE PAIN Last administered on 03/27/20at 06:57; Start 03/25/20 at 16:15 Dexamethasone Sodium Phosphate (Decadron) 2 mg Q6HRS IVP Last administered on 03/28/20 12:30; Start 03/25/20 at 18:00 Sorbitol (Sorbitol Solution) 30 ml 1X ONCE PO Last administered on 03/25/20at 17:59; Start 03/25/20 at 18:00; Stop 03/25/20 at 18:01; Status DC Sorbitol (Sorbitol Solution) 30 ml PRN DAILY PRN PO CONSTIPATION Last administered on 03/26/20at 21:52; Start 03/26/20 at 20:00 Ciprofloxacin (Cipro) 500 mg BID PO Last administered on 03/28/20 15:58; Start 03/28/20 at 15:30 Phenazopyridine HCl (Pyridium) 200 mg PRN TID PRN PO URINARY PAIN; Start 03/28/20 at 15:30 Active Scripts Active Reported Multi Vitamin Daily (Multivitamin) 1 Each Tablet 1 Tab PO DAILY 30 Days Vitals/I & O Vital Sign - Last 24 Hours 03/27/20 03/27/20 03/27/20 03/27/20 16:40 19:00 20:00 23:00 Temp 98.3 98.1 98.3 98.1 Pulse 85 68 Resp 20 20 B/P (MAP) 135/72 (93) 145/88 (107) Pulse Ox 97 98 O2 Delivery Room Air Room Air Room Air Room Air 03/28/20 03/28/20 03/28/20 03/28/20 00:54 01:54 04:29 06:57 Resp 20 20 18 20 Pulse Ox 98 96 96 O2 Delivery Room Air Room Air Room Air 03/28/20 03/28/20 03/28/20 03/28/20 07:25 07:53 08:29 10:35 Temp 97.6 98.2 97.6 98.2 Pulse 75 76 Resp 17 18 B/P (MAP) 124/86 (99) 126/76 (93) Pulse Ox 96 98 O2 Delivery Room Air Room Air Room Air Room Air 03/28/20 12:34 O2 Delivery Room Air Intake and Output 03/27/20 03/27/20 03/28/20 15:00 23:00 07:00 Intake Total 690 ml 440 ml Balance 690 ml 440 ml KRISTY SCHWARTZ MD March 28, 2020 16:29
[2020-03-28] MEDS: DEXAMETHASONE 1 MG TABLET PO SCH (17:49)
[2020-03-28 19:00] VITALS: BP 165/92
[2020-03-28 19:53] LABS: BILIRUBIN,URINE NEGATIVE (NEG); CLARITY,URINE CLEAR; COLOR,URINE YELLOW; NITRITE,URINE NEGATIVE (NEG); PH,URINE 6.5 (<5.0-8.0); PROTEIN,URINE NEGATIVE (NEG-TRACE); UROBILINOGEN,URINE 0.2 mg/dL (0.2 mg/dL)
[2020-03-28 20:02] LABS: BACTERIA,URINE MODERATE /HPF (0-FEW); RBC,URINE 0 /HPF (0-2); SQUAMOUS EPITHELIAL CELL,UR MANY /LPF; WBC,URINE RARE /HPF (0-4)
[2020-03-28 23:00] VITALS: BP 120/76
[2020-03-29] MEDS: DEXAMETHASONE 1 MG TABLET PO SCH ×5 (01:07→23:37)
[2020-03-29] MEDS: oxyCODONE/APAP 10/325 1 TAB TABLET PO PRN ×4 (01:09→23:39)
[2020-03-29 06:17] VITALS: BP 121/77
[2020-03-29] MEDS: GABAPENTIN 300 MG CAPSULE. PO SCH ×3 (08:53→21:24)
[2020-03-29] MEDS: DOCUSATE SODIUM 100 MG CAPSULE. PO SCH (08:53)
[2020-03-29] MEDS: CIPROFLOXACIN HCL 250 MG TABLET. PO SCH (08:55)
--- NOTE | 2020-03-29 09:16 | NUR ---
[facility] following. Discussed with RN. RN anticipates possible discharge home today. Pt accepted with [facility]. Discharge orders needed. [facility] will continue to follow. Addendum: 03/29/20 at 1248 by DANILO BULL [facility] faxed discharge orders to [facility]. Per Dr. Watson, pt will discharge if okay with Dr. Palma.
[2020-03-29 10:50] VITALS: BP 153/70
--- NOTE | 2020-03-29 12:26 | PDOC ---
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 POD #2 Persistent pain Possible alcohol issues History of Present Illness History of Present Illness 03/29/2020 Patient seen and examined She is working with occupational therapy with [facility] Seems to be doing little better Discussed with case management Discussed with RN Chart reviewed 03/28/2020 Patient seen and examined She is resting with no apparent distress Chart reviewed 03/27/2020 Patient seen and examined She is still in a lot of pain I discussed with her son by phone Chart reviewed Discussed with RN She is tearful intermittently 03-26-2020 Patient seen and examined Discussed with RN Discussed with physical therapy Chart reviewed Plan is discharge home with home health and PT OT Vitals/I&O Vitals/I&O: Vital Signs Date Time Temp Pulse Resp B/P (MAP) Pulse Ox O2 Delivery O2 Flow Rate FiO2 03/29/20 10:50 98.0 80 16 153/70 (97) 97 98.0 03/29/20 10:00 Room Air I & O 03/28/20 03/28/20 03/29/20 15:00 23:00 07:00 Intake Total 940 ml 800 ml Balance 940 ml 800 ml Physical Exam Physical Exam: Gen.: well-developed well-nourished in no apparent distress Head: Normal shape atraumatic Eyes: Pupils equal reactive to light and accommodation, normal conjunctivae and lids Ears: Normal shape Nose: Normal shape no trauma Mouth: No exudates of the back of throat no thrush no lesions Neck: Supple no JVD no carotid bruit or lymphadenopathy no thyromegaly Chest: Lungs clear to auscultation with good inspiratory effort no crackles rales or rhonchi Cardiovascular: S1-S2 regular rhythm no murmurs gallops or rubs Abdomen: Bowel sounds present soft nontender no hepatosplenomegaly appreciated sign Extremities: No clubbing no cyanosis no edema peripheral pulses palpated bilaterally Neurological: Alert awake oriented in person time place and situation, cranial nerves II through XII intact,exam- 4/5 strength in upper extremities primarily because of pain, LE strength was 5/5 burning dysesthetic pain in Upper extremities knee and ankle jerks were 3+, upper extremity reflexes were 1+ Psych: Appropriate mood, cooperative General: Other (voice clear) Heart: Regular rate, Normal S1 Lungs: Clear Abdomen: Normal bowel sounds Extremities: No clubbing, No cyanosis Skin: Other (dressing dry and intact) Labs Labs: Laboratory Tests Test 03/28/20 19:48 Urine Collection Type Unknown Urine Color Yellow Urine Clarity Clear Urine pH 6.5 (<5.0-8.0) Urine Specific [place] 1.025 (1.000-1.030) Urine Protein Negative mg/dL (NEG-TRACE) Urine Glucose (UA) Negative mg/dL (NEG) Urine Ketones (Stick) Negative mg/dL (NEG) Urine Blood Negative (NEG) Urine Nitrite Negative (NEG) Urine Bilirubin Negative (NEG) Urine Urobilinogen Dipstick 0.2 mg/dL (0.2 mg/dL) Urine Leukocyte Esterase Negative (NEG) Urine RBC 0 /HPF (0-2) Urine WBC Rare /HPF (0-4) Urine Squamous Epithelial Cells Many /LPF Urine Bacteria Moderate /HPF (0-FEW) Urine Mucus Marked /LPF Assessment and Plan Assessmemt and Plan Problems Medical Problems: (1) Cervical radiculopathy Status: Acute Postop day 6 cervical microdiscectomy s/p fall from bed 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 steroids now (Decadron 2 mg every 6) PRN pain meds Aggressive PT OT Home meds Appreciate neurosurgery input Hope to discharge with home health when okay with neurosurgery Full code DVT prophylaxis Comment Review of Relevant I have reviewed the following items sonal (where applicable) has been applied. Medications: Current Medications Medications (Trade) Dose Ordered Sig/Felix Route PRN Reason Start Time Stop Time Status Last Admin Dose Admin Ciprofloxacin (Cipro) 500 mg BID PO 03/28/20 15:30 03/29/20 08:55 Phenazopyridine HCl (Pyridium) 200 mg PRN TID PRN PO URINARY PAIN 03/28/20 15:30 03/28/20 21:41 Dexamethasone (Decadron) 2 mg Q6HRS PO 03/28/20 18:00 03/29/20 12:20 VERENA JIMENES K III DO March 29, 2020 12:26
[2020-03-29] MEDS: fentaNYL PF VIAL 100 MCG/2 ML VIAL IVP PRN (12:27)
--- NOTE | 2020-03-29 12:28 | SNU/HH DC ---
DISCHARGE WITH HOME HEALTH DISCHARGE INFORMATION: Final Diagnosis: Problems Medical Problems: (1) Cervical radiculopathy Status: Acute Condition on Discharge: Stable CODE STATUS: Code Status: Full HOME HEALTH: Face to Face: I certify this patient is under my care and that I, or a nurse practitioner or physician's executive marketing assistant working with me, had a face to face encounter that meets the physician face to face encounter requirements with this patient on []. Medical Complications: Other (Recent cervical spine injury) RN For Eval/Treatment: Yes Physical Therapy For: Evalulation/Treatment Occupational Therapy For: Evaluation/Treatment Home Health Aide For: Self-care MANAGER COLLEGE For: Community Resources Pt Meets Homebound Status: Poor coordination w/ amb. POST DISCHARGE ORDERS: DIET AFTER DISCHARGE: Regular CERTIFICATION STATEMENT: Certification Statement: Certification Statement: Based on the above finding, I certify that this patient is confined to the home and needs intermittent alf care, physical therapy and/or speech therapy, or continues to need occupational therapy.~ This patient is under my care, and I have initiated the establishment of the plan of care.~ This patient will be followed by myself or a community physician who will periodically review the plan of care. Home Meds Reported Medications Multivitamin (MULTI VITAMIN DAILY) 1 Each Tablet, 1 TAB PO DAILY for prophylactic for 30 Days, #30 TAB 0 Refills 03/22/20 VERENA JIMENES III DO March 29, 2020 12:28
--- NOTE | 2020-03-29 13:38 | PDOC ---
PROGRESS NOTES Subjective Subjective POD # 6 S/P ACDF C4-5 increased pain currently after working with PT Lower extremities feel much better upper extremities are slowly improving, right less painful than left still burning pain in left arm has been up ambulating Objective Objective Vital Signs Date Time Temp Pulse Resp B/P (MAP) Pulse Ox O2 Delivery O2 Flow Rate FiO2 03/29/20 12:27 Room Air 03/29/20 10:50 98.0 80 16 153/70 (97) 97 98.0 03/24/20 09:34 10.0 Intake and Output 03/29/20 06:59 Intake Total 1740 ml Balance 1740 ml Intake Oral 1740 ml # Voids 6 Physical Exam General: Alert, Oriented X3, Cooperative MUSCULOSKELETAL: Other (QUINONES, no change in strength) Skin: Other (dressing dry and intact, soft collar on) Assessment Assessment Problems Medical Problems: (1) Cervical radiculopathy Status: Acute Plan Plan of Care continue gabapentin PT/ OT likely dc tomorrow Comment Review of Relevant I have reviewed the following items sonal (where applicable) has been applied. Labs Laboratory Tests Test 03/28/20 19:48 Urine Collection Type Unknown Urine Color Yellow Urine Clarity Clear Urine pH 6.5 (<5.0-8.0) Urine Specific [place] 1.025 (1.000-1.030) Urine Protein Negative mg/dL (NEG-TRACE) Urine Glucose (UA) Negative mg/dL (NEG) Urine Ketones (Stick) Negative mg/dL (NEG) Urine Blood Negative (NEG) Urine Nitrite Negative (NEG) Urine Bilirubin Negative (NEG) Urine Urobilinogen Dipstick 0.2 mg/dL (0.2 mg/dL) Urine Leukocyte Esterase Negative (NEG) Urine RBC 0 /HPF (0-2) Urine WBC Rare /HPF (0-4) Urine Squamous Epithelial Cells Many /LPF Urine Bacteria Moderate /HPF (0-FEW) Urine Mucus Marked /LPF Laboratory Tests Test 03/28/20 19:48 Urine Collection Type Unknown Urine Color Yellow Urine Clarity Clear Urine pH 6.5 (<5.0-8.0) Urine Specific [place] 1.025 (1.000-1.030) Urine Protein Negative mg/dL (NEG-TRACE) Urine Glucose (UA) Negative mg/dL (NEG) Urine Ketones (Stick) Negative mg/dL (NEG) Urine Blood Negative (NEG) Urine Nitrite Negative (NEG) Urine Bilirubin Negative (NEG) Urine Urobilinogen Dipstick 0.2 mg/dL (0.2 mg/dL) Urine Leukocyte Esterase Negative (NEG) Urine RBC 0 /HPF (0-2) Urine WBC Rare /HPF (0-4) Urine Squamous Epithelial Cells Many /LPF Urine Bacteria Moderate /HPF (0-FEW) Urine Mucus Marked /LPF Microbiology 03/23/20 Urine Culture - Final, Complete 03/23/20 Urine Culture Result 1 (ANNIE) - Final, Complete Medications Current Medications Ondansetron HCl (Zofran) 4 mg 1X ONCE IVP Last administered on 03/21/20at 21: 18; Start 03/21/20 at 20:45; Stop 03/21/20 at 20:46; Status DC Sodium Chloride 1,000 ml @ 1,000 mls/hr Q1H IV Last administered on 03/21/20at 21:19; Start 03/21/20 at 20:40; Stop 03/21/20 at 21:39; Status DC Methylprednisolone Sodium Succinate (SOLU-Medrol 125MG VIAL) 125 mg 1X ONCE IV Last administered on 03/21/20at 21:17; Start 03/21/20 at 20:45; Stop 03/21/20 at 20:46; Status DC Fentanyl Citrate (Fentanyl 2ml Vial) 50 mcg 1X ONCE IVP Last administered on 03/21/20at 21:18; Start 03/21/20 at 20:45; Stop 03/21/20 at 20:46; Status DC Ondansetron HCl (Zofran) 4 mg PRN Q8HRS PRN IV NAUSEA/VOMITING 1ST CHOICE Last administered on 03/22/20at 03:20; Start 03/22/20 at 00:30; Stop 03/23/20 at 00:29; Status DC Fentanyl Citrate (Fentanyl 2ml Vial) 50 mcg PRN Q1HR PRN IV MODERATE PAIN 4-6 Last administered on 03/22/20at 04:18; Start 03/22/20 at 00:30; Stop 03/22/20 at 14:26; Status DC Sodium Chloride 1,000 ml @ 100 mls/hr Q10H IV Last administered on 03/22/20at 22:13; Start 03/22/20 at 00:30; Stop 03/23/20 at 00:29; Status DC Fentanyl Citrate (Fentanyl 2ml Vial) 100 mcg PRN Q2HR PRN IVP SEVERE PAIN 7-10 Last administered on 03/29/20at 12:27; Start 03/22/20 at 05:30 Methylprednisolone Sodium Succinate (SOLU-Medrol 125MG VIAL) 125 mg 1X ONCE IV Last administered on 03/22/20at 11:26; Start 03/22/20 at 11:30; Stop 03/22/20 at 11:31; Status DC Hydromorphone HCl (Dilaudid) 1.5 mg PRN Q4HRS PRN IV MODERATE PAIN Last administered on 03/25/20at 06:23; Start 03/22/20 at 13:00 Bacitracin 38640 unit/Sodium Chloride 1,000 ml @ 1,000 mls/hr 1X ONCE IRR Last administered on 03/23/20at 09:44; Start 03/23/20 at 06:00; Stop 03/23/20 at 06:59; Status DC Dexamethasone Sodium Phosphate (Decadron) 4 mg Q6HRS IVP Last administered on 03/25/20at 11:42; Start 03/22/20 at 14:00; Stop 03/25/20 at 16:09; Status DC Cefazolin Sodium/ Dextrose 50 ml @ 100 mls/hr 1X PREOP PRN IV PRIOR TO PROCEDURE; Start 03/22/20 at 14:00; Stop 03/22/20 at 16:00; Status Cancel Cefazolin Sodium/ Dextrose 50 ml @ 100 mls/hr 1X PREOP PRN IV PRIOR TO PROC EDURE Last administered on 03/23/20at 09:00; Start 03/23/20 at 06:00; Stop 03/23/20 at 12:00; Status DC Ondansetron HCl (Zofran) 4 mg PRN Q6HRS PRN IV NAUSEA/VOMITING; Start 03/23/20 at 07:00; Stop 03/23/20 at 19:00; Status DC Fentanyl Citrate (Fentanyl 2ml Vial) 25 mcg PRN Q5MIN PRN IV MILD PAIN 1-3; Start 03/23/20 at 07:00; Stop 03/23/20 at 19:00; Status DC Fentanyl Citrate (Fentanyl 2ml Vial) 50 mcg PRN Q5MIN PRN IV MODERATE TO SEVERE PAIN Last administered on 03/23/20at 13:04; Start 03/23/20 at 07:00; Stop 03/23/20 at 19:00; Status DC Morphine Sulfate (Morphine Sulfate) 1 mg PRN Q10MIN PRN IV SEVERE PAIN 7-10; Start 03/23/20 at 07:00; Stop 03/23/20 at 19:00; Status DC Ringer's Solution 1,000 ml @ 30 mls/hr Q24H IV Last administered on 03/23/20at 12:23; Start 03/23/20 at 07:00; Stop 03/23/20 at 18:59; Status DC Hydromorphone HCl (Dilaudid) 0.5 mg PRN Q10MIN PRN IV SEV PAIN, Second choice; Start 03/23/20 at 07:00; Stop 03/23/20 at 19:00; Status DC Prochlorperazine Edisylate (Compazine) 5 mg PACU PRN PRN IV NAUSEA, MRX1 Last administered on 03/23/20at 12:18; Start 03/23/20 at 07:00; Stop 03/23/20 at 19:00; Status DC Ondansetron HCl (Zofran) 4 mg PRN Q4HRS PRN IVP NAUSEA/VOMITING 1ST CHOICE Last administered on 03/26/20at 08:41; Start 03/23/20 at 04:00 Gelatin (Gelfoam Size 100) 1 each STK-MED ONCE .ROUTE Last administered on 03/23/20at 09:44; Start 03/23/20 at 06:57; Stop 03/23/20 at 06:58; Status DC Bupivacaine HCl/ Epinephrine Bitart (Sensorcain-Epi 0.5%-1:540200 Mpf) 30 ml STK-MED ONCE .ROUTE Last administered on 03/23/20at 09:44; Start 03/23/20 at 06:58; Stop 03/23/20 at 06:58; Status DC Thrombin 20,000 unit STK-MED ONCE TP Last administered on 03/23/20at 09:44; Start 03/23/20 at 06:58; Stop 03/23/20 at 06:58; Status DC Ondansetron HCl (Zofran) 4 mg STK-MED ONCE .ROUTE ; Start 03/23/20 at 07:55; Stop 03/23/20 at 07:55; Status DC Propofol 20 ml @ As Directed STK-MED ONCE IV ; Start 03/23/20 at 07:55; Stop 03/23/20 at 07:55; Status DC Lidocaine HCl (Lidocaine Pf 2% Vial) 5 ml STK-MED ONCE .ROUTE ; Start 03/23/20 at 07:55; Stop 03/23/20 at 07:55; Status DC Phenylephrine HCl (Bipin-Synephrine Inj) 10 mg STK-MED ONCE .ROUTE ; Start 03/23/20 at 07:55; Stop 03/23/20 at 07:55; Status DC Dexamethasone Sodium Phosphate (Decadron) 4 mg STK-MED ONCE .ROUTE ; Start 03/23/20 at 07:55; Stop 03/23/20 at 07:55; Status DC Midazolam HCl (Versed) 2 mg STK-MED ONCE .ROUTE ; Start 03/23/20 at 07:55; Stop 03/23/20 at 07:55; Status DC Fentanyl Citrate (Fentanyl 2ml Vial) 100 mcg STK-MED ONCE .ROUTE ; Start 03/23/20 at 07:55; Stop 03/23/20 at 07:55; Status DC Remifentanil HCl (Ultiva) 2 mg STK-MED ONCE IV ; Start 03/23/20 at 07:55; Stop 03/23/20 at 07:56; Status DC Succinylcholine Chloride (Anectine) 200 mg STK-MED ONCE .ROUTE ; Start 03/23/20 at 07:55; Stop 03/23/20 at 07:56; Status DC Propofol 0 ml @ As Directed STK-MED ONCE IV ; Start 03/23/20 at 07:55; Stop 03/23/20 at 07:56; Status DC Glycopyrrolate (Robinul) 1 mg STK-MED ONCE .ROUTE ; Start 03/23/20 at 09:26; Stop 03/23/20 at 09:27; Status DC Ketamine HCl (Ketamine) 50 mg STK-MED ONCE .ROUTE ; Start 03/23/20 at 09:32; Stop 03/23/20 at 09:32; Status DC Propofol 50 ml @ As Directed STK-MED ONCE IV ; Start 03/23/20 at 10:02; Stop 03/23/20 at 10:02; Status DC Propofol 50 ml @ As Directed STK-MED ONCE IV ; Start 03/23/20 at 11:30; Stop 03/23/20 at 11:31; Status DC Desflurane (Suprane) 90 ml STK-MED ONCE IH ; Start 03/23/20 at 11:36; Stop 03/23/20 at 11:36; Status DC Acetaminophen/ Hydrocodone Bitart (Lortab 5/325) 1 tab PRN Q4HRS PRN PO MILD PAIN 1-3; Start 03/23/20 at 14:00; Stop 03/25/20 at 16:09; Status DC Acetaminophen/ Hydrocodone Bitart (Lortab 5/325) 2 tab PRN Q4HRS PRN PO MO DERATE PAIN Last administered on 03/25/20at 12:47; Start 03/23/20 at 14:00; Stop 03/25/20 at 16:09; Status DC Al Hydroxide/Mg Hydroxide (Mylanta Plus Xs) 30 ml PRN Q2HR PRN PO HEARTBURN / GAS Last administered on 03/24/20at 18:26; Start 03/23/20 at 22:45 Gabapentin (Neurontin) 100 mg DAILY PO ; Start 03/24/20 at 14:00; Stop 03/24/20 at 14:34; Status DC Gabapentin (Neurontin) 100 mg TID PO Last administered on 03/25/20at 14:10; Start 03/24/20 at 15:00; Stop 03/25/20 at 16:09; Status DC Docusate Sodium (Colace) 100 mg DAILY PO Last administered on 03/29/20at 08:53; Start 03/25/20 at 12:00 Gabapentin (Neurontin) 300 mg TID PO Last administered on 03/29/20 08:53; Start 03/25/20 at 21:00 Oxycodone/ Acetaminophen (Percocet 10/325) 1 tab PRN Q6HRS PRN PO MILD PAIN 1-3 Last administered on 03/29/20at 08:53; Start 03/25/20 at 16:15 Oxycodone/ Acetaminophen (Percocet 10/325) 2 tab PRN Q6HRS PRN PO MODERATE - SEVERE PAIN Last administered on 03/27/20at 06:57; Start 03/25/20 at 16:15 Dexamethasone Sodium Phosphate (Decadron) 2 mg Q6HRS IVP Last administered on 03/28/20 12:30; Start 03/25/20 at 18:00; Stop 03/28/20 at 16:30; Status DC Sorbitol (Sorbitol Solution) 30 ml 1X ONCE PO Last administered on 03/25/20at 17:59; Start 03/25/20 at 18:00; Stop 03/25/20 at 18:01; Status DC Sorbitol (Sorbitol Solution) 30 ml PRN DAILY PRN PO CONSTIPATION Last administered on 03/26/20at 21:52; Start 03/26/20 at 20:00 Ciprofloxacin (Cipro) 500 mg BID PO Last administered on 03/29/20at 08:55; Start 03/28/20 at 15:30 Phenazopyridine HCl (Pyridium) 200 mg PRN TID PRN PO URINARY PAIN Last administered on 03/28/20at 21:41; Start 03/28/20 at 15:30 Dexamethasone (Decadron) 2 mg Q6HRS PO Last administered on 03/29/20at 12:20; Start 03/28/20 at 18:00 Active Scripts Active Reported Multi Vitamin Daily (Multivitamin) 1 Each Tablet 1 Tab PO DAILY 30 Days Vitals/I & O Vital Sign - Last 24 Hours 03/28/20 03/28/20 03/28/20 03/28/20 15:59 19:00 19:14 20:00 Temp 97.9 97.3 97.9 97.3 Pulse 86 71 Resp 18 20 20 B/P (MAP) 147/91 (109) 165/92 (116) Pulse Ox 100 99 100 O2 Delivery Room Air Room Air Room Air Room Air 03/28/20 03/28/20 03/29/20 03/29/20 20:14 23:00 01:09 02:09 Temp 98.0 98.0 Pulse 54 Resp 20 18 20 20 B/P (MAP) 120/76 (91) Pulse Ox 96 96 96 96 O2 Delivery Room Air Room Air Room Air Room Air 03/29/20 03/29/20 03/29/20 03/29/20 06:17 07:30 08:53 10:00 Temp 97.7 97.7 Pulse 73 Resp 18 B/P (MAP) 121/77 (92) Pulse Ox 98 O2 Delivery Room Air Room Air Room Air Room Air 03/29/20 03/29/20 10:50 12:27 Temp 98.0 98.0 Pulse 80 Resp 16 B/P (MAP) 153/70 (97) Pulse Ox 97 O2 Delivery Room Air Intake and Output 03/28/20 03/28/20 03/29/20 14:59 22:59 06:59 Intake Total 940 ml 800 ml Balance 940 ml 800 ml 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
[2020-03-29 15:00] VITALS: BP 119/72
[2020-03-29 19:00] VITALS: BP 125/65
[2020-03-29 23:00] VITALS: BP 126/70
[2020-03-30 03:00] VITALS: BP 111/61
[2020-03-30] MEDS: DEXAMETHASONE 1 MG TABLET PO SCH ×2 (05:55→12:24)
[2020-03-30] MEDS: oxyCODONE/APAP 10/325 1 TAB TABLET PO PRN ×2 (05:57→12:24)
[2020-03-30 07:00] VITALS: BP_SYST 125; BP_SYST 128; BP_DIAS 70; BP_DIAS 74
--- NOTE | 2020-03-30 08:39 | PDOC ---
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 POD #2 Persistent pain Possible alcohol issues D/W RN History of Present Illness History of Present Illness 03/29/2020 Patient seen and examined She is working with occupational therapy with [facility] Seems to be doing little better Discussed with case management Discussed with RN Chart reviewed 03/28/2020 Patient seen and examined She is resting with no apparent distress Chart reviewed 03/27/2020 Patient seen and examined She is still in a lot of pain I discussed with her son by phone Chart reviewed Discussed with RN She is tearful intermittently 03-26-2020 Patient seen and examined Discussed with RN Discussed with physical therapy Chart reviewed Plan is discharge home with home health and PT OT Vitals Vitals Vital Signs Date Time Temp Pulse Resp B/P (MAP) Pulse Ox O2 Delivery O2 Flow Rate FiO2 03/30/20 08:02 Room Air 03/30/20 05:57 20 03/30/20 03:00 97.8 62 111/61 (78 93 97.8 Physical Exam Physical Exam Gen.: well-developed well-nourished in no apparent distress Head: Normal shape atraumatic Eyes: Pupils equal reactive to light and accommodation, normal conjunctivae and lids Ears: Normal shape Nose: Normal shape no trauma Mouth: No exudates of the back of throat no thrush no lesions Neck: Supple no JVD no carotid bruit or lymphadenopathy no thyromegaly Chest: Lungs clear to auscultation with good inspiratory effort no crackles rales or rhonchi Cardiovascular: S1-S2 regular rhythm no murmurs gallops or rubs Abdomen: Bowel sounds present soft nontender no hepatosplenomegaly appreciated sign Extremities: No clubbing no cyanosis no edema peripheral pulses palpated bilaterally Neurological: Alert awake oriented in person time place and situation, cranial nerves II through XII intact,exam- 4/5 strength in upper extremities primarily because of pain, LE strength was 5/5 burning dysesthetic pain in Upper extremities knee and ankle jerks were 3+, upper extremity reflexes were 1+ Psych: Appropriate mood, cooperative General: Alert, Oriented X3, Cooperative Heart: Regular rate, Normal S1 Lungs: Clear Abdomen: Normal bowel sounds Extremities: No clubbing, No cyanosis Skin: Other (dressing dry and intact, soft collar on) Labs LABS Study: MR cervical spine without contrast INDICATION: Neck injury. Bilateral radiculopathy. COMPARISON: None. TECHNIQUE: Multiplanar MR imaging of the cervical spine performed without the use of intravenous contrast. FINDINGS: Cord signal elevation beginning at the lower aspect of the C4 level and extending to the mid aspect of C5 in the setting of cord compression as detailed below. Apparent cord signal elevation on the sagittal STIR sequence at the C6 level but this is less conspicuous on the axial and sagittal T2 sequences and may be artifactual from adjacent surgical hardware. Operative changes at C5-C6. Hardware integrity and assessment for fusion across the operative level would be better assessed by radiography or CT. Straightening of cervical lordosis. Faint retrolisthesis of C4 on C5. No acute fracture or aggressive marrow signal abnormality. Discogenic arthrosis most pronounced at the junctional C4-C5 and C6-C7 levels. Mild prevertebral edema/fluid extending from C2 to C4. Mild T2 signal elevation along the tip of the dens but the small ligamentous structures in this region appear intact. Normal atlantodental interval and normal alignment at the craniocervical interface. No evidence for major ligamentous injury throughout the cervical or upper thoracic spine. Small right thyroid lobe nodule on image 19 series 8 measuring up to 0.8 cm. This does not warrant dedicated follow-up based on size. C1-C2: The region of the foramen magnum is patent. C2-C3: Mild facet degeneration. The central canal and neural foramina are patent. C3-C4: Mild disc osteophyte complex eccentric to the left. Left more so than right uncovertebral joint hypertrophy. Mild left facet degeneration. Ventral cord flattening lateralized to the left. Moderate central canal stenosis. Mild left neural foraminal stenosis. The right neural foramen is patent. C4-C5: Junctional level. Diffuse disc osteophyte complex and ligamentum flavum combine to compress the ventral and dorsal margins of the cord. Severe central canal stenosis measuring just under 5 mm AP. As above, cord signal elevation at this level. Facet degeneration more pronounced on the left. Left more so than right uncovertebral joint hypertrophy. Severe left and moderate right neural foraminal stenosis. C5-C6: Operative level. Osteophytic ridging with central cord deformity. There may be fusion across the facet joints at this level. Minimal central canal stenosis. The neural foramina are patent. C6-C7: Junctional level. Diffuse disc osteophyte complex slightly eccentric to the left. Mild ligamentum flavum hypertrophy. Ventral more so than dorsal cord deformity. Moderate central canal stenosis. Left more so than right uncovertebral joint hypertrophy and mild facet degeneration with moderate left and mild right neural foraminal stenosis. C7-T1: Bilateral facet generation slightly more pronounced on the right. The central canal is patent. Moderate right and mild left neural foraminal stenosis. T1-T2 through T3-T4: Mild facet degeneration without significant neural foraminal stenosis. The central canal is patent. IMPRESSION: 1. Mild prevertebral edema/fluid mainly from the lower aspect of C2-C4 could represent the sequela of reported trauma however there is no evidence for major ligamentous injury. No acute fracture. 2. Cord signal elevation from the mid aspect of C4 to the mid aspect of C5 either cord edema or myelomalacia in the setting of severe central canal stenosis at C4-C5. This severe central canal stenosis is on a multifactorial basis to include mild retrolisthesis of C4 on C5, diffuse disc osteophyte complex and ligamentum flavum hypertrophy. The mid sagittal canal dimension is approximately 4.8 mm. 3. Also at C4-C5, left more so than right facet degeneration and uncovertebral joint hypertrophy resulting in severe left and moderate right neural foraminal stenosis. 4. As above, moderate central canal stenosis at C3-C4 and C6-C7. Moderate neural foraminal stenosis on the left at C6-C7 and on the right at C7-T1. Mild neural foraminal stenosis at additional levels detailed in the body the report. 5. Operative changes at C5-C6 without comp occasions features by MRI. Note is made that hardware integrity and any osseous fusion would be better assessed by radiographs or CT. Assessment and Plan Assessmemt and Plan Problems Medical Problems: (1) Cervical radiculopathy Status: Acute Comment Review of Relevant I have reviewed the following items sonal (where applicable) has been applied. Labs Laboratory Tests Test 03/28/20 19:48 Urine Collection Type Unknown Urine Color Yellow Urine Clarity Clear Urine pH 6.5 (<5.0-8.0) Urine Specific [place] 1.025 (1.000-1.030) Urine Protein Negative mg/dL (NEG-TRACE) Urine Glucose (UA) Negative mg/dL (NEG) Urine Ketones (Stick) Negative mg/dL (NEG) Urine Blood Negative (NEG) Urine Nitrite Negative (NEG) Urine Bilirubin Negative (NEG) Urine Urobilinogen Dipstick 0.2 mg/dL (0.2 mg/dL) Urine Leukocyte Esterase Negative (NEG) Urine RBC 0 /HPF (0-2) Urine WBC Rare /HPF (0-4) Urine Squamous Epithelial Cells Many /LPF Urine Bacteria Moderate /HPF (0-FEW) Urine Mucus Marked /LPF Microbiology 03/23/20 Urine Culture - Final, Complete 03/23/20 Urine Culture Result 1 (ANNIE) - Final, Complete Medications Current Medications Ondansetron HCl (Zofran) 4 mg 1X ONCE IVP Last administered on 03/21/20at 21:18; Start 03/21/20 at 20:45; Stop 03/21/20 at 20:46; Status DC Sodium Chloride 1,000 ml @ 1,000 mls/hr Q1H IV Last administered on 03/21/20at 21:19; Start 03/21/20 at 20:40; Stop 03/21/20 at 21:39; Status DC Methylprednisolone Sodium Succinate (SOLU-Medrol 125MG VIAL) 125 mg 1X ONCE IV Last administered on 03/21/20at 21:17; Start 03/21/20 at 20:45; Stop 03/21/20 at 20:46; Status DC Fentanyl Citrate (Fentanyl 2ml Vial) 50 mcg 1X ONCE IVP Last administered on 03/21/20at 21:18; Start 03/21/20 at 20:45; Stop 03/21/20 at 20:46; Status DC Ondansetron HCl (Zofran) 4 mg PRN Q8HRS PRN IV NAUSEA/VOMITING 1ST CHOICE Last administered on 03/22/20at 03:20; Start 03/22/20 at 00:30; Stop 03/23/20 at 00:29; Status DC Fentanyl Citrate (Fentanyl 2ml Vial) 50 mcg PRN Q1HR PRN IV MODERATE PAIN 4-6 Last administered on 03/22/20at 04:18; Start 03/22/20 at 00:30; Stop 03/22/20 at 14:26; Status DC Sodium Chloride 1,000 ml @ 100 mls/hr Q10H IV Last administered on 03/22/20at 22:13; Start 03/22/20 at 00:30; Stop 03/23/20 at 00:29; Status DC Fentanyl Citrate (Fentanyl 2ml Vial) 100 mcg PRN Q2HR PRN IVP SEVERE PAIN 7-10 Last administered on 03/29/20at 12:27; Start 03/22/20 at 05:30 Methylprednisolone Sodium Succinate (SOLU-Medrol 125MG VIAL) 125 mg 1X ONCE IV Last administered on 03/22/20at 11:26; Start 03/22/20 at 11:30; Stop 03/22/20 at 11:31; Status DC Hydromorphone HCl (Dilaudid) 1.5 mg PRN Q4HRS PRN IV MODERATE PAIN Last administered on 03/25/20at 06:23; Start 03/22/20 at 13:00 Bacitracin 41019 unit/Sodium Chloride 1,000 ml @ 1,000 mls/hr 1X ONCE IRR Last administered on 03/23/20at 09:44; Start 03/23/20 at 06:00; Stop 03/23/20 at 06:59; Status DC Dexamethasone Sodium Phosphate (Decadron) 4 mg Q6HRS IVP Last administered on 03/25/20at 11:42; Start 03/22/20 at 14:00; Stop 03/25/20 at 16:09; Status DC Cefazolin Sodium/ Dextrose 50 ml @ 100 mls/hr 1X PREOP PRN IV PRIOR TO PROCEDURE; Start 03/22/20 at 14:00; Stop 03/22/20 at 16:00; Status Cancel Cefazolin Sodium/ Dextrose 50 ml @ 100 mls/hr 1X PREOP PRN IV PRIOR TO PROCEDURE Last administered on 03/23/20at 09:00; Start 03/23/20 at 06:00; Stop 03/23/20 at 12:00; Status DC Ondansetron HCl (Zofran) 4 mg PRN Q6HRS PRN IV NAUSEA/VOMITING; Start 03/23/20 at 07:00; Stop 03/23/20 at 19:00; Status DC Fentanyl Citrate (Fentanyl 2ml Vial) 25 mcg PRN Q5MIN PRN IV MILD PAIN 1-3; Start 03/23/20 at 07:00; Stop 03/23/20 at 19:00; Status DC Fentanyl Citrate (Fentanyl 2ml Vial) 50 mcg PRN Q5MIN PRN IV MODERATE TO SEVERE PAIN Last administered on 03/23/20at 13:04; Start 03/23/20 at 07:00; Stop 03/23/20 at 19:00; Status DC Morphine Sulfate (Morphine Sulfate) 1 mg PRN Q10MIN PRN IV SEVERE PAIN 7-10; Start 03/23/20 at 07:00; Stop 03/23/20 at 19:00; Status DC Ringer's Solution 1,000 ml @ 30 mls/hr Q24H IV Last administered on 03/23/20at 12:23; Start 03/23/20 at 07:00; Stop 03/23/20 at 18:59; Status DC Hydromorphone HCl (Dilaudid) 0.5 mg PRN Q10MIN PRN IV SEV PAIN, Second choice; Start 03/23/20 at 07:00; Stop 03/23/20 at 19:00; Status DC Prochlorperazine Edisylate (Compazine) 5 mg PACU PRN PRN IV NAUSEA, MRX1 Last administered on 03/23/20at 12:18; Start 03/23/20 at 07:00; Stop 03/23/20 at 19:00; Status DC Ondansetron HCl (Zofran) 4 mg PRN Q4HRS PRN IVP NAUSEA/VOMITING 1ST CHOICE Last administered on 03/26/20at 08:41; Start 03/23/20 at 04:00 Gelatin (Gelfoam Size 100) 1 each STK-MED ONCE .ROUTE Last administered on 03/23/20at 09:44; Start 03/23/20 at 06:57; Stop 03/23/20 at 06:58; Status DC Bupivacaine HCl/ Epinephrine Bitart (Sensorcain-Epi 0.5%-1:[id number] Mpf) 30 ml STK-MED ONCE .ROUTE Last administered on 03/23/20at 09:44; Start 03/23/20 at 06:58; Stop 03/23/20 at 06:58; Status DC Thrombin 20,000 unit STK-MED ONCE TP Last administered on 03/23/20at 09:44; S tart 03/23/20 at 06:58; Stop 03/23/20 at 06:58; Status DC Ondansetron HCl (Zofran) 4 mg STK-MED ONCE .ROUTE ; Start 03/23/20 at 07:55; Stop 03/23/20 at 07:55; Status DC Propofol 20 ml @ As Directed STK-MED ONCE IV ; Start 03/23/20 at 07:55; Stop 03/23/20 at 07:55; Status DC Lidocaine HCl (Lidocaine Pf 2% Vial) 5 ml STK-MED ONCE .ROUTE ; Start 03/23/20 at 07:55; Stop 03/23/20 at 07:55; Status DC Phenylephrine HCl (Bipin-Synephrine Inj) 10 mg STK-MED ONCE .ROUTE ; Start 03/23/20 at 07:55; Stop 03/23/20 at 07:55; Status DC Dexamethasone Sodium Phosphate (Decadron) 4 mg STK-MED ONCE .ROUTE ; Start 03/23/20 at 07:55; Stop 03/23/20 at 07:55; Status DC Midazolam HCl (Versed) 2 mg STK-MED ONCE .ROUTE ; Start 03/23/20 at 07:55; Stop 03/23/20 at 07:55; Status DC Fentanyl Citrate (Fentanyl 2ml Vial) 100 mcg STK-MED ONCE .ROUTE ; Start 03/23/20 at 07:55; Stop 03/23/20 at 07:55; Status DC Remifentanil HCl (Ultiva) 2 mg STK-MED ONCE IV ; Start 03/23/20 at 07:55; Stop 03/23/20 at 07:56; Status DC Succinylcholine Chloride (Anectine) 200 mg STK-MED ONCE .ROUTE ; Start 03/23/20 at 07:55; Stop 03/23/20 at 07:56; Status DC Propofol 0 ml @ As Directed STK-MED ONCE IV ; Start 03/23/20 at 07:55; Stop 03/23/20 at 07:56; Status DC Glycopyrrolate (Robinul) 1 mg STK-MED ONCE .ROUTE ; Start 03/23/20 at 09:26; Stop 03/23/20 at 09:27; Status DC Ketamine HCl (Ketamine) 50 mg STK-MED ONCE .ROUTE ; Start 03/23/20 at 09:32; Stop 03/23/20 at 09:32; Status DC Propofol 50 ml @ As Directed STK-MED ONCE IV ; Start 03/23/20 at 10:02; Stop 03/23/20 at 10:02; Status DC Propofol 50 ml @ As Directed STK-MED ONCE IV ; Start 03/23/20 at 11:30; Stop 03/23/20 at 11:31; Status DC Desflurane (Suprane) 90 ml STK-MED ONCE IH ; Start 03/23/20 at 11:36; Stop 03/23/20 at 11:36; Status DC Acetaminophen/ Hydrocodone Bitart (Lortab 5/325) 1 tab PRN Q4HRS PRN PO MILD PAIN 1-3; Start 03/23/20 at 14:00; Stop 03/25/20 at 16:09; Status DC Acetaminophen/ Hydrocodone Bitart (Lortab 5/325) 2 tab PRN Q4HRS PRN PO MODERATE PAIN Last administered on 03/25/20at 12:47; Start 03/23/20 at 14:00; Stop 03/25/20 at 16:09; Status DC Al Hydroxide/Mg Hydroxide (Mylanta Plus Xs) 30 ml PRN Q2HR PRN PO HEARTBURN / GAS Last administered on 03/24/20at 18:26; Start 03/23/20 at 22:45 Gabapentin (Neurontin) 100 mg DAILY PO ; Start 03/24/20 at 14:00; Stop 03/24/20 at 14:34; Status DC Gabapentin (Neurontin) 100 mg TID PO Last administered on 03/25/20at 14:10; Start 03/24/20 at 15:00; Stop 03/25/20 at 16:09; Status DC Docusate Sodium (Colace) 100 mg DAILY PO Last administered on 03/29/20at 08:53; Start 03/25/20 at 12:00 Gabapentin (Neurontin) 300 mg TID PO Last administered on 03/29/20at 21:24; Start 03/25/20 at 21:00 Oxycodone/ Acetaminophen (Percocet 10/325) 1 tab PRN Q6HRS PRN PO MILD PAIN 1-3 Last administered on 03/30/20at 05:57; Start 03/25/20 at 16:15 Oxycodone/ Acetaminophen (Percocet 10/325) 2 tab PRN Q6HRS PRN PO MODERATE - SEVERE PAIN Last administered on 03/27/20 06:57; Start 03/25/20 at 16:15 Dexamethasone Sodium Phosphate (Decadron) 2 mg Q6HRS IVP Last administered on 03/28/20 12:30; Start 03/25/20 at 18:00; Stop 03/28/20 at 16:30; Status DC Sorbitol (Sorbitol Solution) 30 ml 1X ONCE PO Last administered on 03/25/20at 17:59; Start 03/25/20 at 18:00; Stop 03/25/20 at 18:01; Status DC Sorbitol (Sorbitol Solution) 30 ml PRN DAILY PRN PO CONSTIPATION Last administered on 03/26/20 21:52; Start 03/26/20 at 20:00 Ciprofloxacin (Cipro) 500 mg BID PO Last administered on 03/29/20 08:55; Start 03/28/20 at 15:30; Stop 03/29/20 at 13:48; Status DC Phenazopyridine HCl (Pyridium) 200 mg PRN TID PRN PO URINARY PAIN Last administered on 03/28/20 21:41; Start 03/28/20 at 15:30; Stop 03/29/20 at 13:48; Status DC Dexamethasone (Decadron) 2 mg Q6HRS PO Last administered on 03/30/20 05:55; Start 03/28/20 at 18:00 Active Scripts Active Reported Multi Vitamin Daily (Multivitamin) 1 Each Tablet 1 Tab PO DAILY 30 Days Vitals/I & O Vital Sign - Last 24 Hours 03/29/20 03/29/20 03/29/20 03/29/20 08:53 10:00 10:50 12:27 Temp 98.0 98.0 Pulse 80 Resp 16 B/P (MAP) 153/70 (97) Pulse Ox 97 O2 Delivery Room Air Room Air Room Air 03/29/20 03/29/20 03/29/20 03/29/20 15:00 17:29 18:31 19:00 Temp 98.0 98.2 98.0 98.2 Pulse 84 Resp 18 20 B/P (MAP) 119/72 (88) 125/65 (85) Pulse Ox 96 96 O2 Delivery Room Air Room Air Room Air 03/29/20 03/29/20 03/29/20 03/30/20 20:00 23:00 23:39 00:39 Temp 98.1 98.1 Pulse 64 Resp 20 20 20 B/P (MAP) 126/70 (88) Pulse Ox 94 O2 Delivery Room Air Room Air Room Air Room Air 03/30/20 03/30/20 03/30/20 03:00 05:57 08:02 Temp 97.8 97.8 Pulse 62 Resp 20 20 B/P (MAP) 111/61 (78) Pulse Ox 93 O2 Delivery Room Air Nasal Cannula Room Air Intake and Output 03/29/20 03/29/20 03/30/20 15:00 23:00 07:00 Intake Total 600 ml 600 ml 440 ml Balance 600 ml 600 ml 440 ml MEHRAN LÓPEZ MD March 30, 2020 08:39
[2020-03-30] MEDS: DOCUSATE SODIUM 100 MG CAPSULE. PO SCH (09:26)
[2020-03-30] MEDS: GABAPENTIN 300 MG CAPSULE. PO SCH (09:26)
[2020-03-30] MEDS: SORBITOL 70% 30 ML SOLUTION. PO PRN (09:31)
[2020-03-30 11:00] VITALS: BP 128/88
--- NOTE | 2020-03-30 12:02 | NUR ---
SW following. Discussed with RN, pt requesting to see SW. JORGITO met with pt, pt wondering if [employer] will assist with showering. SW advised will check if OT helps with that, pt stating she can pay another company to help with that if need be. Pt denied any further SW needs. Awaiting on Neurology to clear pt for discharge, pt wanting to go home, has transportation. RN notified. Addendum: 03/30/20 at 1405 by DANILO BULL Magda Mcneal RN met with pt to clarify showering needs/ assistance. Pt discharging home today with [employer].
--- NOTE | 2020-03-30 13:24 | PDOC ---
PROGRESS NOTES Subjective Subjective s/p ACDF C4-5 pain much improved today arms feel much better Objective Objective Vital Signs Date Time Temp Pulse Resp B/P (MAP) Pulse Ox O2 Delivery O2 Flow Rate FiO2 03/30/20 12:24 Room Air 03/30/20 11:00 97.8 116 16 128/88 (101) 99 97.8 03/24/20 09:34 10.0 Intake and Output 03/30/20 07:00 Intake Total 1640 ml Balance 1640 ml Intake Oral 1640 ml # Voids 2 Physical Exam General: Alert, Oriented X3, Cooperative, No acute distress, Other (voice clear) Neuro: Normal speech Skin: Other (dressing C,D,I) Assessment Assessment Problems Medical Problems: (1) Cervical radiculopathy Status: Acute Plan Plan of Care ok to dc home f/u 4 weeks Comment Review of Relevant I have reviewed the following items sonal (where applicable) has been applied. Labs Laboratory Tests Test 03/28/20 19:48 Urine Collection Type Unknown Urine Color Yellow Urine Clarity Clear Urine pH 6.5 (<5.0-8.0) Urine Specific [place] 1.025 (1.000-1.030) Urine Protein Negative mg/dL (NEG-TRACE) Urine Glucose (UA) Negative mg/dL (NEG) Urine Ketones (Stick) Negative mg/dL (NEG) Urine Blood Negative (NEG) Urine Nitrite Negative (NEG) Urine Bilirubin Negative (NEG) Urine Urobilinogen Dipstick 0.2 mg/dL (0.2 mg/dL) Urine Leukocyte Esterase Negative (NEG) Urine RBC 0 /HPF (0-2) Urine WBC Rare /HPF (0-4) Urine Squamous Epithelial Cells Many /LPF Urine Bacteria Moderate /HPF (0-FEW) Urine Mucus Marked /LPF Microbiology 03/23/20 Urine Culture - Final, Complete 03/23/20 Urine Culture Result 1 (ANNIE) - Final, Complete Medications Current Medications Ondansetron HCl (Zofran) 4 mg 1X ONCE IVP Last administered on 03/21/20at 21:18; Start 03/21/20 at 20:45; Stop 03/21/20 at 20:46; Status DC Sodium Chloride 1,000 ml @ 1,000 mls/hr Q1H IV Last administered on 03/21/20at 21:19; Start 03/21/20 at 20:40; Stop 03/21/20 at 21:39; Status DC Methylprednisolone Sodium Succinate (SOLU-Medrol 125MG VIAL) 125 mg 1X ONCE IV Last administered on 03/21/20at 21:17; Start 03/21/20 at 20:45; Stop 03/21/20 at 20:46; Status DC Fentanyl Citrate (Fentanyl 2ml Vial) 50 mcg 1X ONCE IVP Last administered on 03/21/20at 21:18; Start 03/21/20 at 20:45; Stop 03/21/20 at 20:46; Status DC Ondansetron HCl (Zofran) 4 mg PRN Q8HRS PRN IV NAUSEA/VOMITING 1ST CHOICE Last administered on 03/22/20at 03:20; Start 03/22/20 at 00:30; Stop 03/23/20 at 00:29; Status DC Fentanyl Citrate (Fentanyl 2ml Vial) 50 mcg PRN Q1HR PRN IV MODERATE PAIN 4-6 Last administered on 03/22/20at 04:18; Start 03/22/20 at 00:30; Stop 03/22/20 at 14:26; Status DC Sodium Chloride 1,000 ml @ 100 mls/hr Q10H IV Last administered on 03/22/20at 22:13; Start 03/22/20 at 00:30; Stop 03/23/20 at 00:29; Status DC Fentanyl Citrate (Fentanyl 2ml Vial) 100 mcg PRN Q2HR PRN IVP SEVERE PAIN 7-10 Last administered on 03/29/20at 12:27; Start 03/22/20 at 05:30 Methylprednisolone Sodium Succinate (SOLU-Medrol 125MG VIAL) 125 mg 1X ONCE IV Last administered on 03/22/20at 11:26; Start 03/22/20 at 11:30; Stop 03/22/20 at 11:31; Status DC Hydromorphone HCl (Dilaudid) 1.5 mg PRN Q4HRS PRN IV MODERATE PAIN Last administered on 03/25/20at 06:23; Start 03/22/20 at 13:00 Bacitracin 10861 unit/Sodium Chloride 1,000 ml @ 1,000 mls/hr 1X ONCE IRR Last administered on 03/23/20at 09:44; Start 03/23/20 at 06:00; Stop 03/23/20 at 06:59; Status DC Dexamethasone Sodium Phosphate (Decadron) 4 mg Q6HRS IVP Last administered on 03/25/20at 11:42; Start 03/22/20 at 14:00; Stop 03/25/20 at 16:09; Status DC Cefazolin Sodium/ Dextrose 50 ml @ 100 mls/hr 1X PREOP PRN IV PRIOR TO PROCEDURE; Start 03/22/20 at 14:00; Stop 03/22/20 at 16:00; Status Cancel Cefazolin Sodium/ Dextrose 50 ml @ 100 mls/hr 1X PREOP PRN IV PRIOR TO PROCEDURE Last administered on 03/23/20at 09:00; Start 03/23/20 at 06:00; Stop 03/23/20 at 12:00; Status DC Ondansetron HCl (Zofran) 4 mg PRN Q6HRS PRN IV NAUSEA/VOMITING; Start 03/23/20 at 07:00; Stop 03/23/20 at 19:00; Status DC Fentanyl Citrate (Fentanyl 2ml Vial) 25 mcg PRN Q5MIN PRN IV MILD PAIN 1-3; Start 03/23/20 at 07:00; Stop 03/23/20 at 19:00; Status DC Fentanyl Citrate (Fentanyl 2ml Vial) 50 mcg PRN Q5MIN PRN IV MODERATE TO SEVERE PAIN Last administered on 03/23/20at 13:04; Start 03/23/20 at 07:00; Stop 03/23/20 at 19:00; Status DC Morphine Sulfate (Morphine Sulfate) 1 mg PRN Q10MIN PRN IV SEVERE PAIN 7-10; Start 03/23/20 at 07:00; Stop 03/23/20 at 19:00; Status DC Ringer's Solution 1,000 ml @ 30 mls/hr Q24H IV Last administered on 03/23/20at 12:23; Start 03/23/20 at 07:00; Stop 03/23/20 at 18:59; Status DC Hydromorphone HCl (Dilaudid) 0.5 mg PRN Q10MIN PRN IV SEV PAIN, Second choice; Start 03/23/20 at 07:00; Stop 03/23/20 at 19:00; Status DC Prochlorperazine Edisylate (Compazine) 5 mg PACU PRN PRN IV NAUSEA, MRX1 Last administered on 03/23/20at 12:18; Start 03/23/20 at 07:00; Stop 03/23/20 at 19:00; Status DC Ondansetron HCl (Zofran) 4 mg PRN Q4HRS PRN IVP NAUSEA/VOMITING 1ST CHOICE Last administered on 03/26/20at 08:41; Start 03/23/20 at 04:00 Gelatin (Gelfoam Size 100) 1 each STK-MED ONCE .ROUTE Last administered on 03/23/20at 09:44; Start 03/23/20 at 06:57; Stop 03/23/20 at 06:58; Status DC Bupivacaine HCl/ Epinephrine Bitart (Sensorcain-Epi 0.5%-1:680043 Mpf) 30 ml STK-MED ONCE .ROUTE Last administered on 03/23/20at 09:44; Start 03/23/20 at 06:58; Stop 03/23/20 at 06:58; Status DC Thrombin 20,000 unit STK-MED ONCE TP Last administered on 03/23/20at 09:44; Start 03/23/20 at 06:58; Stop 03/23/20 at 06:58; Status DC Ondansetron HCl (Zofran) 4 mg STK-MED ONCE .ROUTE ; Start 03/23/20 at 07:55; Stop 03/23/20 at 07:55; Status DC Propofol 20 ml @ As Directed STK-MED ONCE IV ; Start 03/23/20 at 07:55; Stop 03/23/20 at 07:55; Status DC Lidocaine HCl (Lidocaine Pf 2% Vial) 5 ml STK-MED ONCE .ROUTE ; Start 03/23/20 at 07:55; Stop 03/23/20 at 07:55; Status DC Phenylephrine HCl (Bipin-Synephrine Inj) 10 mg STK-MED ONCE .ROUTE ; Start 03/23/20 at 07:55; Stop 03/23/20 at 07:55; Status DC Dexamethasone Sodium Phosphate (Decadron) 4 mg STK-MED ONCE .ROUTE ; Start 03/23/20 at 07:55; Stop 03/23/20 at 07:55; Status DC Midazolam HCl (Versed) 2 mg STK-MED ONCE .ROUTE ; Start 03/23/20 at 07:55; Stop 03/23/20 at 07:55; Status DC Fentanyl Citrate (Fentanyl 2ml Vial) 100 mcg STK-MED ONCE .ROUTE ; Start 03/23/20 at 07:55; Stop 03/23/20 at 07:55; Status DC Remifentanil HCl (Ultiva) 2 mg STK-MED ONCE IV ; Start 03/23/20 at 07:55; Stop 03/23/20 at 07:56; Status DC Succinylcholine Chloride (Anectine) 200 mg STK-MED ONCE .ROUTE ; Start 03/23/20 at 07:55; Stop 03/23/20 at 07:56; Status DC Propofol 0 ml @ As Directed STK-MED ONCE IV ; Start 03/23/20 at 07:55; Stop 03/23/20 at 07:56; Status DC Glycopyrrolate (Robinul) 1 mg STK-MED ONCE .ROUTE ; Start 03/23/20 at 09:26; Stop 03/23/20 at 09:27; Status DC Ketamine HCl (Ketamine) 50 mg STK-MED ONCE .ROUTE ; Start 03/23/20 at 09:32; Stop 03/23/20 at 09:32; Status DC Propofol 50 ml @ As Directed STK-MED ONCE IV ; Start 03/23/20 at 10:02; Stop 03/23/20 at 10:02; Status DC Propofol 50 ml @ As Directed STK-MED ONCE IV ; Start 03/23/20 at 11:30; Stop 03/23/20 at 11:31; Status DC Desflurane (Suprane) 90 ml STK-MED ONCE IH ; Start 03/23/20 at 11:36; Stop 03/23/20 at 11:36; Status DC Acetaminophen/ Hydrocodone Bitart (Lortab 5/325) 1 tab PRN Q4HRS PRN PO MILD PAIN 1-3; Start 03/23/20 at 14:00; Stop 03/25/20 at 16:09; Status DC Acetaminophen/ Hydrocodone Bitart (Lortab 5/325) 2 tab PRN Q4HRS PRN PO MODERATE PAIN Last administered on 03/25/20at 12:47; Start 03/23/20 at 14:00; Stop 03/25/20 at 16:09; Status DC Al Hydroxide/Mg Hydroxide (Mylanta Plus Xs) 30 ml PRN Q2HR PRN PO HEARTBURN / GAS Last administered on 03/24/20 18:26; Start 03/23/20 at 22:45 Gabapentin (Neurontin) 100 mg DAILY PO ; Start 03/24/20 at 14:00; Stop 03/24/20 at 14:34; Status DC Gabapentin (Neurontin) 100 mg TID PO Last administered on 03/25/20at 14:10; Start 03/24/20 at 15:00; Stop 03/25/20 at 16:09; Status DC Docusate Sodium (Colace) 100 mg DAILY PO Last administered on 03/30/20 09:26; Start 03/25/20 at 12:00 Gabapentin (Neurontin) 300 mg TID PO Last administered on 03/30/20 09:26; Start 03/25/20 at 21:00; Stop 03/30/20 at 12:55; Status DC Oxycodone/ Acetaminophen (Percocet 10/325) 1 tab PRN Q6HRS PRN PO MILD PAIN 1-3 Last administered on 03/30/20at 12:24; Start 03/25/20 at 16:15 Oxycodone/ Acetaminophen (Percocet 10/325) 2 tab PRN Q6HRS PRN PO MODERATE - SEVERE PAIN Last administered on 03/27/20at 06:57; Start 03/25/20 at 16:15 Dexamethasone Sodium Phosphate (Decadron) 2 mg Q6HRS IVP Last administered on 03/28/20 12:30; Start 03/25/20 at 18:00; Stop 03/28/20 at 16:30; Status DC Sorbitol (Sorbitol Solution) 30 ml 1X ONCE PO Last administered on 03/25/20at 17:59; Start 03/25/20 at 18:00; Stop 03/25/20 at 18:01; Status DC Sorbitol (Sorbitol Solution) 30 ml PRN DAILY PRN PO CONSTIPATION Last ad ministered on 03/30/20 09:31; Start 03/26/20 at 20:00 Ciprofloxacin (Cipro) 500 mg BID PO Last administered on 03/29/20 08:55; Start 03/28/20 at 15:30; Stop 03/29/20 at 13:48; Status DC Phenazopyridine HCl (Pyridium) 200 mg PRN TID PRN PO URINARY PAIN Last administered on 03/28/20at 21:41; Start 03/28/20 at 15:30; Stop 03/29/20 at 13:48; Status DC Dexamethasone (Decadron) 2 mg Q6HRS PO Last administered on 03/30/20at 12:24; Start 03/28/20 at 18:00 Gabapentin (Neurontin) 400 mg TID PO ; Start 03/30/20 at 14:00 Active Scripts Active Reported Multi Vitamin Daily (Multivitamin) 1 Each Tablet 1 Tab PO DAILY 30 Days Vitals/I & O Vital Sign - Last 24 Hours 03/29/20 03/29/20 03/29/20 03/29/20 15:00 17:29 18:31 19:00 Temp 98.0 98.2 98.0 98.2 Pulse 84 Resp 18 20 B/P (MAP) 119/72 (88) 125/65 (85) Pulse Ox 96 96 O2 Delivery Room Air Room Air Room Air 03/29/20 03/29/20 03/29/20 03/30/20 20:00 23:00 23:39 00:39 Temp 98.1 98.1 Pulse 64 Resp 20 20 20 B/P (MAP) 126/70 (88) Pulse Ox 94 O2 Delivery Room Air Room Air Room Air Room Air 03/30/20 03/30/20 03/30/20 03/30/20 03:00 05:57 07:00 07:35 Temp 97.8 98.1 97.8 98.1 Pulse 62 91 Resp 20 20 16 B/P (MAP) 111/61 (78) 125/74 (91) Pulse Ox 93 94 O2 Delivery Room Air Nasal Cannula Room Air Room Air 03/30/20 03/30/20 03/30/20 08:02 11:00 12:24 Temp 97.8 97.8 Pulse 116 Resp 16 B/P (MAP) 128/88 (101) Pulse Ox 99 O2 Delivery Room Air Room Air Room Air Intake and Output 03/29/20 03/29/20 03/30/20 15:00 23:00 07:00 Intake Total 600 ml 600 ml 440 ml Balance 600 ml 600 ml 440 ml 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
[2020-03-30] MEDS ORDERED: GABAPENTIN 400 MG CAPSULE. PO SCH (14:00)
--- NOTE | 2020-03-30 15:20 | NUR ---
Pt. discharged to home with Rx, verbalized understanding of discharge instructions. Ant. neck incision JOSEF, soft cervical collar in place.
--- NOTE | 2020-03-30 20:51 | PDOC3 ---
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 POD #2 Persistent pain Possible alcohol issues D/C PLANNING 25 MIN D/W RN History of Present Illness History of Present Illness 03/29/2020 Patient seen and examined She is working with occupational therapy with [facility] Seems to be doing little better Discussed with case management Discussed with RN Chart reviewed 03/28/2020 Patient seen and examined She is resting with no apparent distress Chart reviewed 03/27/2020 Patient seen and examined She is still in a lot of pain I discussed with her son by phone Chart reviewed Discussed with RN She is tearful intermittently 03-26-2020 Patient seen and examined Discussed with RN Discussed with physical therapy Chart reviewed Plan is discharge home with home health and PT OT Vitals Vitals Vital Signs Date Time Temp Pulse Resp B/P (MAP) Pulse Ox O2 Delivery O2 Flow Rate FiO2 03/30/20 08:02 Room Air 03/30/20 05:57 20 03/30/20 03:00 97.8 62 111/61 (78) 93 97.8 Physical Exam Physical Exam Gen.: well-developed well-nourished in no apparent distress Head: Normal shape atraumatic Eyes: Pupils equal reactive to light and accommodation, normal conjunctivae and lids Ears: Normal shape Nose: Normal shape no trauma Mouth: No exudates of the back of throat no thrush no lesions Neck: Supple no JVD no carotid bruit or lymphadenopathy no thyromegaly Chest: Lungs clear to auscultation with good inspiratory effort no crackles rales or rhonchi Cardiovascular: S1-S2 regular rhythm no murmurs gallops or rubs Abdomen: Bowel sounds present soft nontender no hepatosplenomegaly appreciated sign Extremities: No clubbing no cyanosis no edema peripheral pulses palpated bilaterally Neurological: Alert awake oriented in person time place and situation, cranial nerves II through XII intact,exam- 4/5 strength in upper extremities primarily because of pain, LE strength was 5/5 burning dysesthetic pain in Upper extremities knee and ankle jerks were 3+, upper extremity reflexes were 1+ Psych: Appropriate mood, cooperative General: Alert, Oriented X3, Cooperative Heart: Regular rate, Normal S1 Lungs: Clear Abdomen: Normal bowel sounds Extremities: No clubbing, No cyanosis Skin: Other (dressing dry and intact, soft collar on) Labs LABS Study: MR cervical spine without contrast INDICATION: Neck injury. Bilateral radiculopathy. COMPARISON: None. TECHNIQUE: Multiplanar MR imaging of the cervical spine performed without the use of intravenous contrast. FINDINGS: Cord signal elevation beginning at the lower aspect of the C4 level and extending to the mid aspect of C5 in the setting of cord compression as detailed below. Apparent cord signal elevation on the sagittal STIR sequence at the C6 level but this is less conspicuous on the axial and sagittal T2 sequences and may be artifactual from adjacent surgical hardware. Operative changes at C5-C6. Hardware integrity and assessment for fusion across the operative level would be better assessed by radiography or CT. Straightening of cervical lordosis. Faint retrolisthesis of C4 on C5. No acute fracture or aggressive marrow signal abnormality. Discogenic arthrosis most pronounced at the junctional C4-C5 and C6-C7 levels. Mild prevertebral edema/fluid extending from C2 to C4. Mild T2 signal elevation along the tip of the dens but the small ligamentous structures in this region appear intact. Normal atlantodental interval and normal alignment at the craniocervical interface. No evidence for major ligamentous injury throughout the cervical or upper thoracic spine. Small right thyroid lobe nodule on image 19 series 8 measuring up to 0.8 cm. This does not warrant dedicated follow-up based on size. C1-C2: The region of the foramen magnum is patent. C2-C3: Mild facet degeneration. The central canal and neural foramina are patent. C3-C4: Mild disc osteophyte complex eccentric to the left. Left more so than right uncovertebral joint hypertrophy. Mild left facet degeneration. Ventral cord flattening lateralized to the left. Moderate central canal stenosis. Mild left neural foraminal stenosis. The right neural foramen is patent. C4-C5: Junctional level. Diffuse disc osteophyte complex and ligamentum flavum combine to compress the ventral and dorsal margins of the cord. Severe central canal stenosis measuring just under 5 mm AP. As above, cord signal elevation at this level. Facet degeneration more pronounced on the left. Left more so than right uncovertebral joint hypertrophy. Severe left and moderate right neural foraminal stenosis. C5-C6: Operative level. Osteophytic ridging with central cord deformity. There may be fusion across the facet joints at this level. Minimal central canal stenosis. The neural foramina are patent. C6-C7: Junctional level. Diffuse disc osteophyte complex slightly eccentric to the left. Mild ligamentum flavum hypertrophy. Ventral more so than dorsal cord deformity. Moderate central canal stenosis. Left more so than right uncovertebral joint hypertrophy and mild facet degeneration with moderate left and mild right neural foraminal stenosis. C7-T1: Bilateral facet generation slightly more pronounced on the right. The central canal is patent. Moderate right and mild left neural foraminal stenosis. T1-T2 through T3-T4: Mild facet degeneration without significant neural foraminal stenosis. The central canal is patent. IMPRESSION: 1. Mild prevertebral edema/fluid mainly from the lower aspect of C2-C4 could represent the sequela of reported trauma however there is no evidence for major ligamentous injury. No acute fracture. 2. Cord signal elevation from the mid aspect of C4 to the mid aspect of C5 either cord edema or myelomalacia in the setting of severe central canal stenosis at C4-C5. This severe central canal stenosis is on a multifactorial basis to include mild retrolisthesis of C4 on C5, diffuse disc osteophyte complex and ligamentum flavum hypertrophy. The mid sagittal canal dimension is approximately 4.8 mm. 3. Also at C4-C5, left more so than right facet degeneration and uncovertebral joint hypertrophy resulting in severe left and moderate right neural foraminal stenosis. 4. As above, moderate central canal stenosis at C3-C4 and C6-C7. Moderate neural foraminal stenosis on the left at C6-C7 and on the right at C7-T1. Mild neural foraminal stenosis at additional levels detailed in the body the report. 5. Operative changes at C5-C6 without comp occasions features by MRI. Note is made that hardware integrity and any osseous fusion would be better assessed by radiographs or CT. FINAL DIAGNOSIS Problems Medical Problems: (1) Cervical radiculopathy Status: Acute Brief Hospital Course Ms. Jc is a 39 old [sex] who presented with [ CERVICAL RADICULOPATHY, ACUTE DISC HERNIATION] CONDITION AT DISCHARGE: Improved Discharge Medications Current Medications Ondansetron HCl (Zofran) 4 mg 1X ONCE IVP Last administered on 03/21/20 21:18; Start 03/21/20 at 20:45; Stop 03/21/20 at 20:46; Status DC Sodium Chloride 1,000 ml @ 1,000 mls/hr Q1H IV Last administered on 03/21/20at 21:19; Start 03/21/20 at 20:40; Stop 03/21/20 at 21:39; Status DC Methylprednisolone Sodium Succinate (SOLU-Medrol 125MG VIAL) 125 mg 1X ONCE IV Last administered on 03/21/20at 21:17; Start 03/21/20 at 20:45; Stop 03/21/20 at 20:46; Status DC Fentanyl Citrate (Fentanyl 2ml Vial) 50 mcg 1X ONCE IVP Last administered on 03/21/20 21:18; Start 03/21/20 at 20:45; Stop 03/21/20 at 20:46; Status DC Ondansetron HCl (Zofran) 4 mg PRN Q8HRS PRN IV NAUSEA/VOMITING 1ST CHOICE Last administered on 03/22/20at 03:20; Start 03/22/20 at 00:30; Stop 03/23/20 at 00:29; Status DC Fentanyl Citrate (Fentanyl 2ml Vial) 50 mcg PRN Q1HR PRN IV MODERATE PAIN 4-6 Last administered on 03/22/20at 04:18; Start 03/22/20 at 00:30; Stop 03/22/20 at 14:26; Status DC Sodium Chloride 1,000 ml @ 100 mls/hr Q10H IV Last administered on 03/22/20at 22:13; Start 03/22/20 at 00:30; Stop 03/23/20 at 00:29; Status DC Fentanyl Citrate (Fentanyl 2ml Vial) 100 mcg PRN Q2HR PRN IVP SEVERE PAIN 7-10 Last administered on 03/29/20 12:27; Start 03/22/20 at 05:30 Methylprednisolone Sodium Succinate (SOLU-Medrol 125MG VIAL) 125 mg 1X ONCE IV Last administered on 03/22/20 11:26; Start 03/22/20 at 11:30; Stop 03/22/20 at 11:31; Status DC Hydromorphone HCl (Dilaudid) 1.5 mg PRN Q4HRS PRN IV MODERATE PAIN Last administered on 03/25/20at 06:23; Start 03/22/20 at 13:00 Bacitracin 42350 unit/Sodium Chloride 1,000 ml @ 1,000 mls/hr 1X ONCE IRR Last administered on 03/23/20at 09:44; Start 03/23/20 at 06:00; Stop 03/23/20 at 06:59; Status DC Dexamethasone Sodium Phosphate (Decadron) 4 mg Q6HRS IVP Last administered on 03/25/20at 11:42; Start 03/22/20 at 14:00; Stop 03/25/20 at 16:09; Status DC Cefazolin Sodium/ Dextrose 50 ml @ 100 mls/hr 1X PREOP PRN IV PRIOR TO PROCEDURE; Start 03/22/20 at 14:00; Stop 03/22/20 at 16:00; Status Cancel Cefazolin Sodium/ Dextrose 50 ml @ 100 mls/hr 1X PREOP PRN IV PRIOR TO PROCEDURE Last administered on 03/23/20at 09:00; Start 03/23/20 at 06:00; Stop 03/23/20 at 12:00; Status DC Ondansetron HCl (Zofran) 4 mg PRN Q6HRS PRN IV NAUSEA/VOMITING; Start 03/23/20 at 07:00; Stop 03/23/20 at 19:00; Status DC Fentanyl Citrate (Fentanyl 2ml Vial) 25 mcg PRN Q5MIN PRN IV MILD PAIN 1-3; Start 03/23/20 at 07:00; Stop 03/23/20 at 19:00; Status DC Fentanyl Citrate (Fentanyl 2ml Vial) 50 mcg PRN Q5MIN PRN IV MODERATE TO SEVERE PAIN Last administered on 03/23/20at 13:04; Start 03/23/20 at 07:00; Stop 03/23/20 at 19:00; Status DC Morphine Sulfate (Morphine Sulfate) 1 mg PRN Q10MIN PRN IV SEVERE PAIN 7-10; Start 03/23/20 at 07:00; Stop 03/23/20 at 19:00; Status DC Ringer's Solution 1,000 ml @ 30 mls/hr Q24H IV Last administered on 03/23/20at 12:23; Start 03/23/20 at 07:00; Stop 03/23/20 at 18:59; Status DC Hydromorphone HCl (Dilaudid) 0.5 mg PRN Q10MIN PRN IV SEV PAIN, Second choice; Start 03/23/20 at 07:00; Stop 03/23/20 at 19:00; Status DC Prochlorperazine Edisylate (Compazine) 5 mg PACU PRN PRN IV NAUSEA, MRX1 Last administered on 03/23/20at 12:18; Start 03/23/20 at 07:00; Stop 03/23/20 at 19:00; Status DC Ondansetron HCl (Zofran) 4 mg PRN Q4HRS PRN IVP NAUSEA/VOMITING 1ST CHOICE Last administered on 03/26/20at 08:41; Start 03/23/20 at 04:00 Gelatin (Gelfoam Size 100) 1 each STK-MED ONCE .ROUTE Last administered on 03/23/20at 09:44; Start 03/23/20 at 06:57; Stop 03/23/20 at 06:58; Status DC Bupivacaine HCl/ Epinephrine Bitart (Sensorcain-Epi 0.5%-1:[id number] Mpf) 30 ml STK-MED ONCE .ROUTE Last administered on 03/23/20at 09:44; Start 03/23/20 at 06:58; Stop 03/23/20 at 06:58; Status DC Thrombin 20,000 unit STK-MED ONCE TP Last administered on 03/23/20at 09:44; Start 03/23/20 at 06:58; Stop 03/23/20 at 06:58; Status DC Ondansetron HCl (Zofran) 4 mg STK-MED ONCE .ROUTE ; Start 03/23/20 at 07:55; Stop 03/23/20 at 07:55; Status DC Propofol 20 ml @ As Directed STK-MED ONCE IV ; Start 03/23/20 at 07:55; Stop 03/23/20 at 07:55; Status DC Lidocaine HCl (Lidocaine Pf 2% Vial) 5 ml STK-MED ONCE .ROUTE ; Start 03/23/20 at 07:55; Stop 03/23/20 at 07:55; Status DC Phenylephrine HCl (Bipin-Synephrine Inj) 10 mg STK-MED ONCE .ROUTE ; Start 03/23/20 at 07:55; Stop 03/23/20 at 07:55; Status DC Dexamethasone Sodium Phosphate (Decadron) 4 mg STK-MED ONCE .ROUTE ; Start 03/23/20 at 07:55; Stop 03/23/20 at 07:55; Status DC Midazolam HCl (Versed) 2 mg STK-MED ONCE .ROUTE ; Start 03/23/20 at 07:55; Stop 03/23/20 at 07:55; Status DC Fentanyl Citrate (Fentanyl 2ml Vial) 100 mcg STK-MED ONCE .ROUTE ; Start 03/23/20 at 07:55; Stop 03/23/20 at 07:55; Status DC Remifentanil HCl (Ultiva) 2 mg STK-MED ONCE IV ; Start 03/23/20 at 07:55; Stop 03/23/20 at 07:56; Status DC Succinylcholine Chloride (Anectine) 200 mg STK-MED ONCE .ROUTE ; Start 03/23/20 at 07:55; Stop 03/23/20 at 07:56; Status DC Propofol 0 ml @ As Directed STK-MED ONCE IV ; Start 03/23/20 at 07:55; Stop 03/23/20 at 07:56; Status DC Glycopyrrolate (Robinul) 1 mg STK-MED ONCE .ROUTE ; Start 03/23/20 at 09:26; Stop 03/23/20 at 09:27; Status DC Ketamine HCl (Ketamine) 50 mg STK-MED ONCE .ROUTE ; Start 03/23/20 at 09:32; Stop 03/23/20 at 09:32; Status DC Propofol 50 ml @ As Directed STK-MED ONCE IV ; Start 03/23/20 at 10:02; Stop 03/23/20 at 10:02; Status DC Propofol 50 ml @ As Directed STK-MED ONCE IV ; Start 03/23/20 at 11:30; Stop 03/23/20 at 11:31; Status DC Desflurane (Suprane) 90 ml STK-MED ONCE IH ; Start 03/23/20 at 11:36; Stop 03/23/20 at 11:36; Status DC Acetaminophen/ Hydrocodone Bitart (Lortab 5/325) 1 tab PRN Q4HRS PRN PO MILD PAIN 1-3; Start 03/23/20 at 14:00; Stop 03/25/20 at 16:09; Status DC Acetaminophen/ Hydrocodone Bitart (Lortab 5/325) 2 tab PRN Q4HRS PRN PO MODERATE PAIN Last administered on 03/25/20at 12:47; Start 03/23/20 at 14:00; Stop 03/25/20 at 16:09; Status DC Al Hydroxide/Mg Hydroxide (Mylanta Plus Xs) 30 ml PRN Q2HR PRN PO HEARTBURN / GAS Last administered on 03/24/20at 18:26; Start 03/23/20 at 22:45 Gabapentin (Neurontin) 100 mg DAILY PO ; Start 03/24/20 at 14:00; Stop 03/24/20 at 14:34; Status DC Gabapentin (Neurontin) 100 mg TID PO Last administered on 03/25/20at 14:10; Start 03/24/20 at 15:00; Stop 03/25/20 at 16:09; Status DC Docusate Sodium (Colace) 100 mg DAILY PO Last administered on 03/30/20at 09:26; Start 03/25/20 at 12:00 Gabapentin (Neurontin) 300 mg TID PO Last administered on 03/30/20 09:26; Start 03/25/20 at 21:00; Stop 03/30/20 at 12:55; Status DC Oxycodone/ Acetaminophen (Percocet 10/325) 1 tab PRN Q6HRS PRN PO MILD PAIN 1-3 Last administered on 03/30/20at 12:24; Start 03/25/20 at 16:15 Oxycodone/ Acetaminophen (Percocet 10/325) 2 tab PRN Q6HRS PRN PO MODERATE - SEVERE PAIN Last administered on 03/27/20at 06:57; Start 03/25/20 at 16:15 Dexamethasone Sodium Phosphate (Decadron) 2 mg Q6HRS IVP Last administered on 03/28/20at 12:30; Start 03/25/20 at 18:00; Stop 03/28/20 at 16:30; Status DC Sorbitol (Sorbitol Solution) 30 ml 1X ONCE PO Last administered on 03/25/20at 17:59; Start 03/25/20 at 18:00; Stop 03/25/20 at 18:01; Status DC Sorbitol (Sorbitol Solution) 30 ml PRN DAILY PRN PO CONSTIPATION Last administered on 03/30/20 09:31; Start 03/26/20 at 20:00 Ciprofloxacin (Cipro) 500 mg BID PO Last administered on 03/29/20at 08:55; Start 03/28/20 at 15:30; Stop 03/29/20 at 13:48; Status DC Phenazopyridine HCl (Pyridium) 200 mg PRN TID PRN PO URINARY PAIN Last administered on 03/28/20at 21:41; Start 03/28/20 at 15:30; Stop 03/29/20 at 13:48; Status DC Dexamethasone (Decadron) 2 mg Q6HRS PO Last administered on 03/30/20at 12:24; Start 03/28/20 at 18:00 Gabapentin (Neurontin) 400 mg TID PO ; Start 03/30/20 at 14:00 Active Scripts Active Reported Multi Vitamin Daily (Multivitamin) 1 Each Tablet 1 Tab PO DAILY 30 Days Vital Signs Vital Signs Date Time Temp Pulse Resp B/P (MAP) Pulse Ox O2 Delivery O2 Flow Rate FiO2 03/30/20 13:45 Room Air 03/30/20 11:00 97.8 116 16 128/88 (101) 99 97.8 Allergies Allergies Coded Allergies Type Severity Reaction Last Updated Verified latex Allergy Intermediate Itching 03/23/20 Yes Disposition/Orders: D/C to Home MEHRAN LÓPEZ MD March 30, 2020 20:51
== END 2020-03-30 15:18 | disposition home health service (06) | DRG 29 ==
LOC: ER 20:04 → 4 NORTH 03-22 01:25
PROVIDERS: ADMIT Internal Medicine; ATTEND Internal Medicine
PROC: 0RB30ZZ Excision of Cervical Vertebral Disc, Open Approach (ICD-10-PCS; 2020-03-23)
PROC: 0RP104Z Removal of Internal Fixation Device from Cervical Vertebral Joint, Open Approach (ICD-10-PCS; 2020-03-23)
PROC: 4A11X4G Monitoring of Peripheral Nervous Electrical Activity, Intraoperative, External Approach (ICD-10-PCS; 2020-03-23)
PROC: 0RG10A0 Fusion of Cervical Vertebral Joint with Interbody Fusion Device, Anterior Approach, Anterior Column, Open Approach (ICD-10-PCS; principal; 2020-03-23 08:30)
DX: M54.12 Radiculopathy, cervical region (principal); M50.021 Cervical disc disorder at C4-C5 level with myelopathy; G62.9 Polyneuropathy, unspecified; M48.02 Spinal stenosis, cervical region; M25.78 Osteophyte, vertebrae; R63.3 Feeding difficulties; Z83.3 Family history of diabetes mellitus; W06.XXXA Fall from bed, initial encounter; Y93.89 Activity, other specified; Y92.89 Other specified places as the place of occurrence of the external cause; Y99.8 Other external cause status; Z91.040 Latex allergy status
CPT/HCPCS: 36415; 72141; 76000; 80053; 80307; 81001; 81025; 85025; 87086; 88304; 88311; 96361; 96374; 96375; 99285; A7015; J0330; J0696; J0780; J1100; J1170; J2250; J2370; J2405; J2704; J2930; J3010; J3490; J7030; J7120; 97110-GO; 97116-GP; 97530-GO; 97530-GP; 97535-GO; C1713; G0378

== ENCOUNTER → 2020-07-27 | Outpatient (CLI) | payer BC ==
[~2020-07-27] MED LIST: MULT-245 PO
--- NOTE | 2020-07-27 11:16 | KCIC ---
MRI Cervical Spine Without Contrast History:Cervical stenosis, previous surgeries, previous fall, right radiculopathy, headache Technique: Multiplanar, multi sequential noncontrast MR imaging was performed of the cervical spine. Comparison: March 21, 2020 Findings: There is mild motion. There is now anterior fusion hardware at C4-5, also anterior hardware at C5-6 as seen previously. There is again incorporated interbody graft at C5-6 with interbody fusion. Exam does not accurately evaluate integrity of hardware. There is no significant marrow edema. Cervical vertebral body stature is overall preserved. There is again moderate to severe degenerative disc disease at C6-7. There is some residual amorphous T2 and STIR hyperintense signal of the cord at C4-5 although less apparent. There is mild levoscoliosis of the cervical spine. C2-C3: Neural foramina and spinal canal are adequate. C3-C4: There is again disc osteophyte complex and shallow protrusion more eccentric to the far left lateral recess. Central canal is narrowed to about 8 mm with a greater degree of moderate narrowing of the far left lateral recess. There is left uncovertebral degenerative change. There is mild narrowing greater proximally of the left neural foramen, right neural foramen adequate. C4-C5: There is residual mild narrowing of the central canal about 8 mm on developmental basis, previously seen bulge/protrusion no longer present. Neural foramina are adequate. C5-C6: Central canal is minimally narrowed to 9 to 10 mm on a developmental basis. Neural foramina are overall adequate. C6-C7: There is again minimal disc osteophyte complex and bulge with mild indentation upon the ventral thecal sac, central canal narrowed to about 7-8 mm as seen previously. There is uncovertebral degenerative change bilaterally. There is mild narrowing of the left neural foramen, very mild narrowing on the right. C7-T1: Spinal canal and neural foramina are adequate. Impression: 1. There is degree of diffuse narrowing of the cervical spinal canal on a developmental basis. There is now anterior fusion hardware at C4-5, decreased spinal stenosis at this level. There is likely some mild residual myelomalacia of the cord at the C4-5 level. There is again moderate narrowing of the far left lateral recess C3-4, also narrowing of the central canal about 7-8 mm at C6-7 as described. 2. There is no new significant cervical neural foramina compromise, overall mild narrowing as described. 3. There is again C6-7 degenerative disc disease. There is mild spondylosis at C3-4 and C6-7. Electronically signed by: Dvae Armando MD (07/27/2020 11:14 AM) [id number]
== END | disposition home or self-care (01) ==
LOC: KCIC MRI 09:09
PROVIDERS: ATTEND Neurological Surgery
DX: M47.812 Spondylosis without myelopathy or radiculopathy, cervical region (principal); M43.22 Fusion of spine, cervical region; M41.82 Other forms of scoliosis, cervical region; M25.78 Osteophyte, vertebrae; M50.323 Other cervical disc degeneration at C6-C7 level; M48.02 Spinal stenosis, cervical region; G95.89 Other specified diseases of spinal cord
CPT/HCPCS: 72141

== ENCOUNTER → 2020-11-11 | Outpatient (CLI) | payer BC, OTHER ==
--- NOTE | 2020-11-11 16:55 | KCIC ---
EXAM: Brain MRI without contrast. HISTORY: Posttraumatic headache. Memory loss. TECHNIQUE: Multiplanar, multisequence magnetic resonance imaging of the brain was performed without c ontrast. COMPARISON: None. FINDINGS: There is no restricted diffusion to suggest acute or subacute infarction. There is no susce ptibility effect to suggest hemorrhage. There is no mass effect or midline shift. There is no hydroce phalus. There are few tiny foci of signal change within the cerebral white matter. The orbits, parana rachid sinuses mastoid air cells are unremarkable. There are normal flow voids within the cerebral vesse ls. There is no calvarial lesion. IMPRESSION: 1. No acute intracranial finding. 2. Tiny foci of signal change within the cerebral white matter, possibly artifactual or due to chroni c small vessel disease or chronic migraine headaches. The imaging appearance does not favor demyelina ting disease. Electronically signed by: Dacia Ruiz MD (11/11/2020 4:52 PM) [facility]
== END ==
LOC: KCIC MRI 15:14
PROVIDERS: ATTEND Nurse Practitioner Family
DX: S09.90XS Unspecified injury of head, sequela (principal); G44.321 Chronic post-traumatic headache, intractable; R41.3 Other amnesia; X58.XXXS Exposure to other specified factors, sequela
CPT/HCPCS: 70551